=== PATIENT | female | born 1950 | race Caucasian/White ===

== ENCOUNTER → 2017-06-21 11:27 | Outpatient (CLI) | payer MEDICARE, OTHER, SELFPAY ==
[2017-06-21 14:15] LABS: Absolute Lymphocyte Count 1.18 X10^3/ul (0.83-4.51); Absolute Neutrophil Count 5.4 X10^3/uL (2.0-7.7); Basophil# 0.02 X10^3/uL; Basophil% 0.3 % (0-1); Eosinophil# 0.17 X10^3/uL; Eosinophils% 2.4 % (0-5); Hematocrit 41.8 % (37-47); Hemoglobin 13.1 g/dl (12.0-15.0); Lymphocyte # 1.18 X10^3/ul (4.0); Lymphocyte % 16.4 % (19-41); Mean Corp Hgb Conc 31.3 g/gl (32-36); Mean Corpuscular Hgb 29.6 pg (27.0-32.0); Mean Corpuscular Volume 94.6 fL (81-99); Mean Platelet Vol. 11.4 fl (6.2-12.0); Monocyte# 0.41 X10^3/uL; Monocyte% 5.7 % (0-10); Neutrophil # 5.41 X10^3/uL (2.7-7.7); Neutrophil % 75.1 % (47-70); Platelet Count 233 K/mm3 (150-450); RBC Distribution Width CV 16.9 % (11.6-14.6); Red Blood Count 4.42 M/mm3 (4.2-5.4); White Blood Count 7.2 K/mm3 (4.4-11.0)
[2017-06-21 14:18] LABS: POSITIVE COUNT NO; POSITIVE DIFFERENTIAL NO; POSITIVE MORPHOLOGY NO
[2017-06-21 14:30] LABS: ALB/GLOB Ratio 0.8 RATIO (0.9-2.4); AST(SGOT) 15 U/L (15-37); Alanine Aminotransfer ALT/SGPT 20 U/L (13-56); Albumin, Serum 3.5 g/dL (3.2-5.0); Alkaline Phosphatase 30 U/L (45-117); Anion Gap 11 (5-15); BUN 32 mg/dL (7-18); BUN/Creat Ratio 31.7 RATIO (10-20); Bilirubin, Direct 0.09 mg/dL (0.00-0.30); Calcium,Total 8.8 mg/dL (8.5-10.1); Chloride 105 mmol/L (98-107); Cholesterol 104 mg/dL (200); Creatinine, Serum 1.01 mg/dL (0.55-1.02); EST Glomerular Filtration Rate 58 mL/min (>60); Est Glom Filt Rate - Afr Amer 70 mL/min (>60); Globulin 4.2 g/dL (2.2-4.2); Glucose 104 mg/dL (74-106); High Density Lipoprotein 43 mg/dL; Potassium 4.1 mmol/L (3.5-5.1); Protein, Total 7.7 g/dL (6.4-8.2); Sodium Level 141 mmol/L (136-145); Triglycerides 132 mg/dL; Very Low Density Lipoprotein 26 mg/dL (5-40)
== END ==
PROVIDERS: Internal Medicine Cardiovascular Disease; Family Provider Family Medicine; PCP Family Medicine; Visit Provider Internal Medicine Rheumatology
DX: E78.5 Hyperlipidemia, unspecified (principal); M06.4 Inflammatory polyarthropathy; M17.0 Bilateral primary osteoarthritis of knee; M21.40 Flat foot [pes planus] (acquired), unspecified foot; M47.892 Other spondylosis, cervical region; M47.897 Other spondylosis, lumbosacral region; Z79.899 Other long term (current) drug therapy
CPT/HCPCS: 36415; 80053; 80061; 82248; 85025

== ENCOUNTER → 2017-09-27 15:13 | Outpatient (CLI) | payer MEDICARE, OTHER, SELFPAY ==
[2017-09-27 17:28] LABS: Absolute Lymphocyte Count 1.31 X10^3/ul (0.83-4.51); Absolute Neutrophil Count 5.3 X10^3/uL (2.0-7.7); Basophil# 0.03 X10^3/uL; Basophil% 0.4 % (0-1); Eosinophil# 0.26 X10^3/uL; Eosinophils% 3.5 % (0-5); Hematocrit 39.4 % (37-47); Hemoglobin 12.4 g/dl (12.0-15.0); Lymphocyte # 1.31 X10^3/ul (4.0); Lymphocyte % 17.6 % (19-41); Mean Corp Hgb Conc 31.5 g/gl (32-36); Mean Corpuscular Volume 98.5 fL (81-99); Mean Platelet Vol. 10.8 fl (6.2-12.0); Monocyte# 0.54 X10^3/uL; Monocyte% 7.2 % (0-10); Neutrophil # 5.26 X10^3/uL (2.7-7.7); Neutrophil % 70.6 % (47-70); Platelet Count 260 K/mm3 (150-450); RBC Distribution Width CV 15.6 % (11.6-14.6); RBC Distribution Width SD 53.6 fl (35.1-43.9); White Blood Count 7.5 K/mm3 (4.4-11.0)
[2017-09-27 17:29] LABS: POSITIVE COUNT NO; POSITIVE DIFFERENTIAL NO; POSITIVE MORPHOLOGY NO
[2017-09-27 17:57] LABS: ALB/GLOB Ratio 0.8 RATIO (0.9-2.4); AST(SGOT) 13 U/L (15-37); Alanine Aminotransfer ALT/SGPT 18 U/L (13-56); Albumin, Serum 3.5 g/dL (3.2-5.0); Alkaline Phosphatase 33 U/L (45-117); Anion Gap 8 (5-15); BUN 31 mg/dL (7-18); BUN/Creat Ratio 27.9 RATIO (10-20); Calcium,Total 8.8 mg/dL (8.5-10.1); Chloride 102 mmol/L (98-107); Creatinine, Serum 1.11 mg/dL (0.55-1.02); EST Glomerular Filtration Rate 52 mL/min (>60); Est Glom Filt Rate - Afr Amer 63 mL/min (>60); Globulin 4.3 g/dL (2.2-4.2); Glucose 102 mg/dL (74-106); Potassium 5.1 mmol/L (3.5-5.1); Protein, Total 7.8 g/dL (6.4-8.2); Sodium Level 138 mmol/L (136-145)
== END ==
PROVIDERS: Family Provider Family Medicine; PCP Family Medicine; Visit Provider Internal Medicine Rheumatology
DX: M06.4 Inflammatory polyarthropathy (principal); M17.0 Bilateral primary osteoarthritis of knee; M21.40 Flat foot [pes planus] (acquired), unspecified foot; M47.892 Other spondylosis, cervical region; M47.897 Other spondylosis, lumbosacral region; I10 Essential (primary) hypertension; E78.5 Hyperlipidemia, unspecified; E11.42 Type 2 diabetes mellitus with diabetic polyneuropathy; L71.9 Rosacea, unspecified; D51.0 Vitamin B12 deficiency anemia due to intrinsic factor deficiency; Z79.899 Other long term (current) drug therapy
CPT/HCPCS: 36415; 80053; 85025

== ENCOUNTER → 2017-10-22 12:55 | Outpatient (CLI) | payer MEDICARE, OTHER, SELFPAY ==
--- NOTE | 2017-10-22 12:57 | ECHOD_ITS ---
Reason For Study: PVCs Procedure This was a 2D Doppler, Color Flow transthoracic echocardiogram. The exam was of fair technical quality due to body habitus. Exam performed in department. Left Ventricle Normal LV size. Left ventricular systolic function is normal. The estimated ejection fraction is 65 %. No regional wall motion abnormalities noted. Right Ventricle Normal RV size. Normal systolic function. Atria The left atrium is mildly enlarged. Normal right atrium. No doppler evidence for ASD. Mitral Valve There is mild mitral annular calcification. Mild diffuse mitral valve thickening. Trivial mitral valve insufficiency. Tricuspid Valve Normal tricuspid valve. Trivial tricuspid valve insufficiency. Right ventricular systolic pressure estimated to be 30 mmHg. Aortic Valve Trisinus/trileaflet aortic valve. Mild focal aortic valve calcification. Pulmonic Valve The pulmonic valve is not well visualized. Great Vessels Normal sized aortic root. Pericardium/Pleural No pericardial effusion. MMode/2D Measurements & Calculations LVIDd: 4.1 cm IVSd: 0.98 cm Ao root diam: 3.2 cm LVIDs: 2.9 cm LVPWd: 0.95 cm RVDd: 3.1 cm FS: 27.5 % LAV(MOD-bp): 56.5 ml LA A4 area: 21.5 cm2 RA A4 area: 15.3 cm2 LAV(MOD-bp) Indexed: 26.7 ml/m2 LAV(MOD-sp2): 45.1 ml LAV(MOD-sp4): 61.6 ml Doppler Measurements & Calculations MV E max omi: 66.9 cm/sec Lat Peak E' Omi: 6.5 cm/sec Med Peak E' Omi: 5.5 cm/sec MV A max omi: 105.3 cm/sec E/E' lat: 10.4 E/E' med: 12.2 MV E/A: 0.64 Ao V2 max: 129.7 cm/sec LV V1 max: 90.0 cm/sec PA V2 max: 73.0 cm/sec Ao max P.7 mmHg LV V1 max P.2 mmHg TR max omi: 257.4 cm/sec TR max P.5 mmHg Interpretation Summary Left ventricular systolic function is normal. The estimated ejection fraction is 65 %. The left atrium is mildly enlarged. There is mild mitral annular calcification. Mild diffuse mitral valve thickening. Trivial mitral valve insufficiency. Trivial tricuspid valve insufficiency. Mild focal aortic valve calcification. Right ventricular systolic pressure estimated to be 30 mmHg. Diastolic function: considered indeterminate. Ordering Physician: Hussein Shi/Lawrence Medina Referring Physician: LAWRENCE SAVAGE Performed By: Madison Enriquez, RDCS, RVT
== END ==
PROVIDERS: Family Provider Family Medicine; PCP Family Medicine; Visit Provider Internal Medicine Cardiovascular Disease
DX: I49.3 Ventricular premature depolarization (principal); I10 Essential (primary) hypertension; E78.5 Hyperlipidemia, unspecified
CPT/HCPCS: 93225; 93226; 93306

== ENCOUNTER → 2017-11-29 14:53 | Outpatient (CLI) | payer MEDICARE, OTHER, SELFPAY ==
[2017-11-29 15:49] LABS: Absolute Lymphocyte Count 1.69 X10^3/ul (0.83-4.51); Absolute Neutrophil Count 4.4 X10^3/uL (2.0-7.7); Basophil# 0.02 X10^3/uL; Basophil% 0.3 % (0-1); Eosinophil# 0.12 X10^3/uL; Eosinophils% 1.8 % (0-5); Hematocrit 39.7 % (37-47); Lymphocyte # 1.69 X10^3/ul (4.0); Lymphocyte % 25.8 % (19-41); Mean Corp Hgb Conc 30.2 g/gl (32-36); Mean Corpuscular Hgb 29.9 pg (27.0-32.0); Mean Platelet Vol. 10.5 fl (6.2-12.0); Monocyte# 0.29 X10^3/uL; Monocyte% 4.4 % (0-10); Neutrophil # 4.38 X10^3/uL (2.7-7.7); Neutrophil % 67.1 % (47-70); Platelet Count 273 K/mm3 (150-450); RBC Distribution Width CV 14.7 % (11.6-14.6); Red Blood Count 4.01 M/mm3 (4.2-5.4); White Blood Count 6.5 K/mm3 (4.4-11.0)
[2017-11-29 15:52] LABS: POSITIVE COUNT NO; POSITIVE DIFFERENTIAL NO; POSITIVE MORPHOLOGY NO
[2017-11-29 16:05] LABS: ALB/GLOB Ratio 0.8 RATIO (0.9-2.4); AST(SGOT) 15 U/L (15-37); Alanine Aminotransfer ALT/SGPT 26 U/L (13-56); Albumin, Serum 3.4 g/dL (3.2-5.0); Alkaline Phosphatase 30 U/L (45-117); Anion Gap 8 (5-15); BUN 23 mg/dL (7-18); BUN/Creat Ratio 25.6 RATIO (10-20); Calcium,Total 8.9 mg/dL (8.5-10.1); Chloride 106 mmol/L (98-107); EST Glomerular Filtration Rate 66 mL/min (>60); Est Glom Filt Rate - Afr Amer 80 mL/min (>60); Globulin 4.2 g/dL (2.2-4.2); Glucose 133 mg/dL (74-106); Potassium 4.5 mmol/L (3.5-5.1); Protein, Total 7.6 g/dL (6.4-8.2); Sodium Level 143 mmol/L (136-145)
== END ==
PROVIDERS: Family Provider Family Medicine; PCP Family Medicine; Visit Provider Internal Medicine Rheumatology
DX: M06.4 Inflammatory polyarthropathy (principal); Z79.899 Other long term (current) drug therapy; M17.0 Bilateral primary osteoarthritis of knee; M21.40 Flat foot [pes planus] (acquired), unspecified foot; M47.892 Other spondylosis, cervical region; M47.897 Other spondylosis, lumbosacral region; I10 Essential (primary) hypertension; E78.5 Hyperlipidemia, unspecified; E11.42 Type 2 diabetes mellitus with diabetic polyneuropathy; L71.9 Rosacea, unspecified; D51.0 Vitamin B12 deficiency anemia due to intrinsic factor deficiency
CPT/HCPCS: 36415; 80053; 85025

== ENCOUNTER → 2017-12-23 12:13 | Outpatient (CLI) | payer MEDICARE, OTHER, SELFPAY ==
[2017-12-23 14:07] LABS: Absolute Lymphocyte Count 0.81 X10^3/ul (0.83-4.51); Absolute Neutrophil Count 4.8 X10^3/uL (2.0-7.7); Basophil# 0.03 X10^3/uL; Basophil% 0.5 % (0-1); Eosinophil# 0.06 X10^3/uL; Eosinophils% 0.9 % (0-5); Hematocrit 37.3 % (37-47); Hemoglobin 11.6 g/dl (12.0-15.0); Lymphocyte # 0.81 X10^3/ul (4.0); Lymphocyte % 12.5 % (19-41); Mean Corp Hgb Conc 31.1 g/gl (32-36); Mean Corpuscular Volume 96.4 fL (81-99); Mean Platelet Vol. 10.8 fl (6.2-12.0); Monocyte# 0.75 X10^3/uL; Monocyte% 11.6 % (0-10); Neutrophil # 4.83 X10^3/uL (2.7-7.7); Neutrophil % 74.3 % (47-70); Platelet Count 261 K/mm3 (150-450); RBC Distribution Width SD 52.8 fl (35.1-43.9); Red Blood Count 3.87 M/mm3 (4.2-5.4); White Blood Count 6.5 K/mm3 (4.4-11.0)
[2017-12-23 14:10] LABS: POSITIVE COUNT NO; POSITIVE DIFFERENTIAL NO; POSITIVE MORPHOLOGY NO
[2017-12-23 14:24] LABS: ALB/GLOB Ratio 0.8 RATIO (0.9-2.4); AST(SGOT) 120 U/L (15-37); Alanine Aminotransfer ALT/SGPT 124 U/L (13-56); Albumin, Serum 3.1 g/dL (3.2-5.0); Alkaline Phosphatase 34 U/L (45-117); Anion Gap 11 (5-15); BUN 27 mg/dL (7-18); BUN/Creat Ratio 22.3 RATIO (10-20); Bilirubin, Direct 0.98 mg/dL (0.00-0.30); Calcium,Total 8.6 mg/dL (8.5-10.1); Chloride 107 mmol/L (98-107); Cholesterol 166 mg/dL (200); Creatinine, Serum 1.21 mg/dL (0.55-1.02); EST Glomerular Filtration Rate 47 mL/min (>60); Est Glom Filt Rate - Afr Amer 57 mL/min (>60); Glucose 76 mg/dL (74-106); High Density Lipoprotein 31 mg/dL; Lipase 255 U/L (73-393); Potassium 3.7 mmol/L (3.5-5.1); Protein, Total 7.1 g/dL (6.4-8.2); Sodium Level 142 mmol/L (136-145); Triglycerides 198 mg/dL; Very Low Density Lipoprotein 40 mg/dL (5-40)
== END ==
PROVIDERS: Internal Medicine Cardiovascular Disease; Family Provider Family Medicine; PCP Family Medicine; Visit Provider Family Medicine
DX: E78.5 Hyperlipidemia, unspecified (principal); R19.7 Diarrhea, unspecified; R11.2 Nausea with vomiting, unspecified; Z79.899 Other long term (current) drug therapy
CPT/HCPCS: 36415; 80053; 80061; 82248; 83690; 85025

== ENCOUNTER → 2017-12-24 09:04 | Outpatient (CLI) | payer MEDICARE, OTHER, SELFPAY | PROVIDERS: Family Provider Family Medicine; PCP Family Medicine; Visit Provider Family Medicine | DX: R11.2 Nausea with vomiting, unspecified (principal) | CPT/HCPCS: 76700; 87493; 87506 ==

== ENCOUNTER 2017-12-24 17:00 | Inpatient (IN) | payer MEDICARE, OTHER, SELFPAY ==
[2017-12-24 17:13] VITALS: BMI 30.8
[2017-12-24 17:28] VITALS: BP 145/76; PULSE 99; RESP 16; TEMP 36.9; O2SAT 96
--- NOTE | 2017-12-24 18:08 | PCM.CONS.GEN ---
Reason for Consult Date of Consultation: 12/24/17 Reason for Consultation: Consult requested by Dr. Jacobo for medical management. History of Present Illness: The patient is a 67 year old F presents with a two-week history of nausea and diarrhea. Patient felt that she had food poisoning.*Primary care doctor and had an ultrasound performed as outpatient that showed a dilated common bile duct of 13 mm. Patient was referred over to Dr. Haris Jacobo who 1 patient admitted to do a CT. We are asked to consult patient for medical management for the patient's numerous medical issues. Patient denies ever having had abdominal pain like this. Patient describes abdominal pain is more generalized and not localized to the right upper quadrant. Nor she been sick for this extended period of time. Patient states she has never had any surgeries before. [] Past Medical History Past Medical History (Chronic Problems): Chronic Problems (Last Reviewed 12/24/17 @ 15:53 by Nery Soto) Abnormal electrocardiogram [ECG] [EKG] (Chronic) Encounter for long-term current use of high risk medication (Chronic) Hypertension (Chronic) Hyperlipidemia (Chronic) Ventricular premature depolarization (Chronic) Medical History: Medical History (Last Reviewed 12/24/17 @ 18:10 by Karlos Sierra DO) Rheumatoid arthritis (Acute) M06.9 Acute kidney injury (Acute) N17.9 Common bile duct obstruction (Acute) K83.1 Diarrhea (Acute) R19.7 Abnormal electrocardiogram [ECG] [EKG] (Chronic) R94.31 Encounter for long-term current use of high risk medication (Chronic) Z79.899 Type 2 diabetes mellitus (Acute) E11.9 Hypertension (Chronic) I10 Hyperlipidemia (Chronic) E78.5 Ventricular premature depolarization (Chronic) I49.3 IBS (irritable bowel syndrome) K58.9 Pernicious anemia D51.0 Diabetic neuropathy E11.40 Diabetic retinopathy E11.319 Rheumatoid arthritis M06.9 Allergies latex Allergy (Verified 12/24/17 17:16) Swelling gadalidium Allergy (Severe, Uncoded 12/24/17 17:28) Swelling stress test dye Home Medications: Ambulatory Orders Medication Instructions Recorded alogliptin 25 mg-pioglitazone 45 1 tab PO QDAY 07/15/17 mg tablet amlodipine 5 mg tablet 5 mg PO QDAY tab 07/15/17 aspirin 81 mg tablet,delayed 81 mg PO QDAY tab 07/15/17 release cetirizine 10 mg tablet 10 mg PO QDAY tab 07/15/17 diphenoxylate-atropine 2.5 1 tab PO QHS PRN 07/15/17 mg-0.025 mg tablet eluxadoline 75 mg tablet 75 mg PO QDAY tab 07/15/17 glucosamine HCl 1,500 mg tablet 3,000 mg PO QDAY tab 07/15/17 insulin glargine (U-300) 300 10 unit SC .COMPLEX 07/15/17 unit/mL (1.5 mL) subcutaneous pen metformin 1,000 mg tablet 1,000 mg PO BID 07/15/17 metoprolol tartrate 50 mg tablet 50 mg PO BID 07/15/17 rosuvastatin 5 mg tablet 5 mg PO QDAY 07/15/17 duloxetine 60 mg capsule,delayed 60 mg PO QDAY 09/11/17 release fluticasone 50 mcg/actuation nasal 2 spray INTRANASAL QDAY PRN 09/11/17 spray,suspension methotrexate sodium 2.5 mg tablet 17.5 mg PO QWEEK tab 09/11/17 benazepril 20 mg tablet 10 mg PO QDAY tab 12/24/17 calcium carbonate 600 mg calcium 1,200 mg PO QDAY tab 12/24/17 (1,500 mg) tablet dapagliflozin 10 mg tablet 10 mg PO QDAY 12/24/17 folic acid 1 mg tablet 2 mg PO QDAY tab 12/24/17 hydrocodone 5 mg-acetaminophen 325 1 tab PO Q6H PRN 12/24/17 mg tablet multivitamin tablet 2 tab PO QDAY tab 12/24/17 vitamin B complex tablet 2 tab PO QDAY tab 12/24/17 Surgical History: no surgical history Psychiatric History: No pertinent psych hx Smoking Status: Former smoker Tobacco Use: Non-smoker Alcohol: None Drugs: None - *Family History Paternal Family History: Family History (Last Reviewed 12/24/17 @ 18:10 by Karlos Sierra DO) Father CAD (coronary artery disease) Review of Systems Constitutional: Reports: Anorexia. Denies: Chills, Fever, Night Sweats Eyes: Denies: Blurred vision, Double vision HEENT: Denies: Head Aches, Sinus Congestion, Sinus Drainage Cardiovascular: Denies: Chest Pain, Palpitations Respiratory: Denies: Cough, Shortness of breath at rest, Sputum production Gastrointestinal: Reports: Abdominal Pain, Diarrhea, Nausea Genitourinary: Denies: Dysuria, Frequency Musculoskeletal: Reports: Joint Tenderness. Denies: Joint Pain Skin: Denies: Dryness, Jaundice, Lesions, Rash Neurological: Denies: Numbness, Tingling, Focal weakness Psychiatric: Denies: Anxiety, Depression Hematologic/ Lymphatic: Denies: Easy Bruising, Easy Bleeding, Hx of blood clot Comment: All review of systems are negative except as mentioned in the history of present illness and the other review of systems. - Physical Exam General: Alert, Cooperative, No apparent distress HEENT: Atraumatic, Normocephalic, - - No icterus Oral: Moist Mucosa, No Gingival or Mucosal Lesions/ Ulcerations Neck: No Nodes, Thyroid Normal Size and Texture Lungs: Clear to auscultation, Normal air movement, No rhonchi, No wheeze Cardiovascular: Regular rate, Regular Rhythm, Normal S1, Normal S2, No murmurs Abdomen: Bowel Sounds Present, Soft, Non-Distended, Tender - Positive Leonard sign Extremities: No clubbing, No cyanosis Skin: No rashes, No breakdown Musculoskeletal: No Tenderness to Palpation of Joints or Extremities, No Muscle Wasting Neurological: Sensory exam intact to light touch and pain, - - No clonus Psych/Mental Status: Normal Affect, Appropriate Vital Signs Temp Pulse Resp BP Pulse Ox 36.9 C 99 16 145/76 H 96 12/24/17 17:28 12/24/17 17:28 12/24/17 17:28 12/24/17 17:28 12/24/17 17:28 Oxygen Delivery Method Room Air Weight: 97.522 kg Body Mass Index (BMI) 30.8 Assessment/Plan All Active Problems (Last Reviewed 12/24/17 @ 15:53 by Nery Soto) Rheumatoid arthritis (Acute) Acute kidney injury (Acute) Dehydration (Acute) Common bile duct obstruction (Acute) Diarrhea (Acute) Type 2 diabetes mellitus (Acute) 1. Dilated common bile duct No definitive stone was noted on ultrasound, but may be sludge Plan is to get a CAT scan to further evaluate to see if there is a stone and based on the results of the CAT scan patient will either undergo a laparoscopic cholecystectomy or an ERCP hopefully on the Patient has a good performance status prior to this and able to participate in greater than 4 METs of activity 2. Diabetes mellitus type 2 Blood sugar checks Moderate dose of sliding scale Hold patient's other diabetic medications for now the patient is going to be n.p.o. in the morning 3. Hypertension Agree with continuing her metoprolol and lisinopril 4. Rheumatoid arthritis I agree with holding the methotrexate. Resume once okayed with surgery Follow-up with rheumatology as outpatient 5. DVT prophylaxis with SCDs Thank you for the consult, the hospitalist service will continue to follow along during the patient's hospitalization. Code Visit Inpatient E&M: 94110 Init Hosp L3
[2017-12-24] MEDS: Lactated Ringers 1,000 ML 300 ML IV ×2 (18:10→21:39)
[2017-12-24 18:25] LABS: Bedside Glucose 90 mg/dL (70-110)
[2017-12-24 20:27] VITALS: BP 150/74; PULSE 102; RESP 18; TEMP 37.1; O2SAT 93
[2017-12-24 22:27] VITALS: PULSE 78
[2017-12-24] MEDS: Atorvastatin Calcium 10 MG Tablet PO (22:27)
[2017-12-24] MEDS: Metoprolol Tartrate 50 MG Tablet PO (22:27)
[2017-12-25] VITALS (16 sets, daily range): BP systolic 73–158; BP diastolic 36–126; PULSE 80–113; RESP 16–20; TEMP 36.6–38.2; O2SAT 92–99; BMI 30.8
[2017-12-25] MEDS: Lactated Ringers 1,000 ML 100 ML IV (00:48)
--- NOTE | 2017-12-25 05:51 | PCM.PN.SRG ---
Subjective: Pt started oral contrast last night, several episodes of diarrhea No real abdominal pain. Less nausea - Physical Exam Abdomen: Bowel Sounds Present, Soft, Distended Vital Signs Temp Pulse Resp BP Pulse Ox 98.2 F 80 18 158/65 H 93 12/25/17 03:46 12/25/17 03:46 12/25/17 03:46 12/25/17 03:46 12/25/17 03:46 Oxygen Delivery Method Room Air Weight: 215 lb Body Mass Index (BMI) 30.8 Intake and Output for Last 24 Hours 12/23/17 12/24/17 12/25/17 23:59 23:59 23:59 Intake Total 2032 Balance 2032 POC Glucose 12/24/17 18:15 POC Glucose 90 Medical Necessity - Tobacco Use Smoking Status: Former smoker Tobacco Use: Non-smoker Assessment/Plan All Active Problems (Last Reviewed 12/24/17 @ 18:10 by Karlos Sierra, DO) Rheumatoid arthritis (Acute) Acute kidney injury (Acute) Dehydration (Acute) Common bile duct obstruction (Acute) Diarrhea (Acute) Type 2 diabetes mellitus (Acute) Labs pending Appreciate Dr Sierra's assistance CT this a.m. Possible ERCP or Lap GB later today pending findings The dominant symptom of diarrhea with other findings suggest CBD obstruction seem out of proportion. Stool check from 12/23 was negative for pathogens and c.diff.
[2017-12-25 06:03] LABS: Absolute Neutrophil Count 3.9 X10^3/uL (2.0-7.7); Basophil# 0.04 X10^3/uL; Basophil% 0.7 % (0-1); Eosinophil# 0.03 X10^3/uL; Eosinophils% 0.5 % (0-5); Hematocrit 34.4 % (37-47); Lymphocyte % 15.8 % (19-41); Mean Corpuscular Hgb 30.6 pg (27.0-32.0); Mean Corpuscular Volume 95.6 fL (81-99); Mean Platelet Vol. 10.6 fl (6.2-12.0); Monocyte% 14.1 % (0-10); Neutrophil % 68.7 % (47-70); Platelet Count 212 K/mm3 (150-450); RBC Distribution Width CV 14.9 % (11.6-14.6); White Blood Count 5.7 K/mm3 (4.4-11.0)
[2017-12-25 06:06] LABS: POSITIVE COUNT NO; POSITIVE DIFFERENTIAL NO; POSITIVE MORPHOLOGY NO
[2017-12-25 06:18] LABS: BUN 14 mg/dL (7-18); Creatinine, Serum 0.73 mg/dL (0.55-1.02); EST Glomerular Filtration Rate 85 mL/min (>60); Estimated Creatinine Clearance 59.03 ml/min; Glucose 60 mg/dL (74-106)
[2017-12-25 06:19] LABS: ALB/GLOB Ratio 0.7 RATIO (0.9-2.4); AST(SGOT) 250 U/L (15-37); Alanine Aminotransfer ALT/SGPT 254 U/L (13-56); Albumin, Serum 2.5 g/dL (3.2-5.0); Alkaline Phosphatase 51 U/L (45-117); Anion Gap 11 (5-15); BUN/Creat Ratio 19.2 RATIO (10-20); Calcium,Total 8.2 mg/dL (8.5-10.1); Chloride 112 mmol/L (98-107); Est Glom Filt Rate - Afr Amer 102 mL/min (>60); Globulin 3.6 g/dL (2.2-4.2); Potassium 3.4 mmol/L (3.5-5.1); Protein, Total 6.1 g/dL (6.4-8.2); Sodium Level 145 mmol/L (136-145)
[2017-12-25] MEDS: Dextrose 50%-Water 25 GM/50 ML DISP.SYRIN IV (06:57)
--- NOTE | 2017-12-25 07:07 | PCM.PN.BLA ---
Progress Note Changing IVF to 0.45Ns with 20megKCL/liter at 80cc/h
[2017-12-25 07:10] LABS: Bedside Glucose 119 mg/dL (70-110)
[2017-12-25 07:50] LABS: Bedside Glucose 58 mg/dL (70-110)
--- NOTE | 2017-12-25 09:55 | PCM.PN.SRG ---
Subjective: The patient is reporting no nausea or vomiting or abdominal pain. - Physical Exam General: Alert, Oriented x3, Cooperative HEENT: Atraumatic Lungs: Normal air movement Cardiovascular: Regular rate, Regular Rhythm Abdomen: Soft, Non Tender, Non-Distended Vital Signs Temp Pulse Resp BP Pulse Ox 98.1 F 82 16 144/69 H 98 12/25/17 08:14 12/25/17 08:14 12/25/17 08:14 12/25/17 08:14 12/25/17 08:14 Oxygen Delivery Method Room Air Weight: 215 lb Body Mass Index (BMI) 30.8 Intake and Output for Last 24 Hours 12/23/17 12/24/17 12/25/17 23:59 23:59 23:59 Intake Total 3041 / 3041 Balance 3041 / 3041 Laboratory Tests Past 24 Hrs 12/25/17 12/25/17 05:52 05:52 WBC 5.7 RBC 3.60 L Hgb 11.0 L Hct 34.4 L MCV 95.6 MCH 30.6 MCHC 32.0 RDW 14.9 H RDW Differential 50.0 H Plt Count 212 MPV 10.6 Immature Gran % (Auto) 0.200 Neut % (Auto) 68.7 Lymph % (Auto) 15.8 L [place] % (Auto) 14.1 H Eos % (Auto) 0.5 Baso % (Auto) 0.7 Absolute Neuts (auto) 3.9 Absolute Lymphs (auto) 0.90 Total Counted Not Reportable Sodium 145 Potassium 3.4 L Chloride 112 H Carbon Dioxide 22.0 Anion Gap 11 BUN 14 Creatinine 0.73 Estim Creat Clear Calc 59.03 Est GFR (MDRD) Af Amer 102 Est GFR (MDRD) Non-Af 85 BUN/Creatinine Ratio 19.2 Glucose 60 L Calcium 8.2 L Total Bilirubin 3.10 H AST 250 H ALT 254 H Alkaline Phosphatase 51 Total Protein 6.1 L Albumin 2.5 L Globulin 3.6 Albumin/Globulin Ratio 0.7 L POC Glucose 12/25/17 12/25/17 12/24/17 07:01 06:46 18:15 POC Glucose 119 H 58 L 90 Clinical Impression(s) from Imaging Studies Abdomen/Pelvis CT 12/25/17 07:00 IMPRESSION: Dilated common bile duct with intrahepatic bile duct dilatation and a prominent distention of the gallbladder. No visualized compressive pancreatic mass or radiodense CBD stone. Radiolucent CBD stone or other intrinsic lesion of the duct cannot be excluded. Suggest MRCP for further evaluation. Colonic diverticulosis, without evidence for acute diverticulitis. Focal narrowing and mural thickening of a short segment of proximal sigmoid colon may be artifact of peristalsis, however, colonic mass is not excluded. Would suggest follow-up colonoscopy. Colonic diverticulosis, without evidence for acute diverticulitis. Duodenal diverticulum without evidence for duodenal diverticulitis. Small nonobstructive left renal calculus. No demonstrated ureteral calculus or hydronephrosis. Atherosclerosis. No evidence for appendicitis. Electronically Signed: Garrett Jorge MD at 7:51 EDT , Service support , Medical Necessity - Tobacco Use Smoking Status: Former smoker Tobacco Use: Non-smoker Assessment/Plan All Active Problems (Last Reviewed 12/24/17 @ 18:10 by Karlos Sierra DO) Rheumatoid arthritis (Acute) Acute kidney injury (Acute) Dehydration (Acute) Common bile duct obstruction (Acute) Diarrhea (Acute) Type 2 diabetes mellitus (Acute) 67-year-old female with obstructive jaundice 1. The patient had a CT scan this morning which showed dilation common bile duct. No obvious gallstones. The patient also had an area of concentric thickening of the proximal sigmoid colon on CT scan. 2. The patient's LFTs have increased since yesterday. 3. I recommend ERCP. I describe ERCP in detail with the patient. I explained the possibility of ampullary mass versus CBD stone. I explained the risks of the procedure including but not limited to bleeding, infection, perforation of the bile ducts her bowels, causing pancreatitis. The patient understands all the risks and is willing to proceed. I explained that if there was a suspected mass I would stent the bile duct and she had to be sent for an EUS. I explained was able to clear the duct I would not have to leave a biliary stent. 4. The patient also has an area of thickening in the proximal colon on CT scan. The patient has never had a colonoscopy. I recommend at the same time or during ERCP that I perform a flexible sigmoidoscopy. The patient is already having diarrhea I will give her a fleets enema to prep the sigmoid colon. I explained that if I were to find a suspected mass I would take biopsies and likely leave a biliary stent to temporize the bile duct until the colon was further delineated. I explained the risks of flexible sigmoidoscopy such as bleeding and perforation of the colon. The patient understands and is willing to proceed with both procedures. I also explained that the patient would likely need a full colonoscopy following this procedure. Ulises Tee MD Pager: [facility] [address] [place] [address] [address] [place] [address] Office:
[2017-12-25] MEDS: Fleet Enema 1 ML RECTAL (12:04)
[2017-12-25 12:21] LABS: Bedside Glucose 77 mg/dL (70-110)
--- NOTE | 2017-12-25 12:38 | PCM.PN.HOSP ---
Subjective: Pain is controlled and denies nausea or vomiting Vitals/I&O's: Vital Signs Temp Pulse Resp BP Pulse Ox 98.1 F 82 16 144/69 H 98 12/25/17 08:14 12/25/17 08:14 12/25/17 08:14 12/25/17 08:14 12/25/17 08:14 Oxygen Delivery Method Room Air Weight: 215 lb Body Mass Index (BMI) 30.8 Intake and Output for Last 24 Hours 12/23/17 12/24/17 12/25/17 23:59 23:59 23:59 Intake Total 3404 / 3404 Balance 3404 / 3404 General: Alert, Oriented x3, No apparent distress HEENT: Atraumatic, EOMI, Normocephalic, - - scleral icterus Oral: Moist Mucosa Neck: Supple, No JVD Lungs: Clear to auscultation, Normal air movement, No rhonchi, No wheeze, No rales Cardiovascular: Regular rate, Regular Rhythm, Normal S1, Normal S2, No murmurs Abdomen: Soft, Non Tender, Non-Distended, No Hepato-splenomegaly Extremities: No edema Skin: No rashes, - - jaundiced Psych/Mental Status: Normal Affect, Appropriate Laboratory Results 12/24/17 18:15: POC Glucose 90 12/25/17 05:52: WBC 5.7, RBC 3.60 L, Hgb 11.0 L, Hct 34.4 L, MCV 95.6, MCH 30.6, MCHC 32.0, RDW 14.9 H, RDW Differential 50.0 H, Plt Count 212, MPV 10.6, Immature Gran % (Auto) 0.200, Neut % (Auto) 68.7, Lymph % (Auto) 15.8 L, [place] % (Auto) 14.1 H, Eos % (Auto) 0.5, Baso % (Auto) 0.7, Absolute Neuts (auto) 3.9, Absolute Lymphs (auto) 0.90, Total Counted Not Reportable 12/25/17 05:52: Sodium 145, Potassium 3.4 L, Chloride 112 H, Carbon Dioxide 22.0, Anion Gap 11, BUN 14, Creatinine 0.73, Estim Creat Clear Calc 59.03, Est GFR (MDRD) Af Amer 102, Est GFR (MDRD) Non-Af 85, BUN/Creatinine Ratio 19.2, Glucose 60 L, Calcium 8.2 L, Total Bilirubin 3.10 H, AST 250 H, ALT 254 H, Alkaline Phosphatase 51, Total Protein 6.1 L, Albumin 2.5 L, Globulin 3.6, Albumin/Globulin Ratio 0.7 L 12/25/17 06:46: POC Glucose 58 L 12/25/17 07:01: POC Glucose 119 H 12/25/17 12:02: POC Glucose 77 Current Medications Acetaminophen (Tylenol) 325 - 650 mg PO Q6H PRN PRN Reason: HAND/PAIN Hydrocodone Bitart/Acetaminophen ([place] 5mg-325mg) 1 - 2 tablet PO Q6H PRN PRN Reason: PAIN Amlodipine Besylate (Norvasc) 5 mg PO DAILY [facility] Atorvastatin Calcium (Lipitor) 10 mg PO QHS [facility] Last Admin: 12/24/17 22:27 Dose: 10 mg Dextrose (D50w Syringe) 0 gm IV X1 PRN; Protocol PRN Reason: Hypoglycemia Last Admin: 12/25/17 06:57 Dose: 12.5 gm Duloxetine HCl (Cymbalta) 60 mg PO DAILY [facility] Glucagon () 1 mg IM .X1 PRN PRN Reason: Hypoglycemia Potassium Chloride/Dextrose/Sod Cl (Kcl 20meq In D5.45ns 1000ml) 1,000 mls @ 100 mls/hr IV .Q10H [facility] Insulin Human Lispro (Humalog Kwikpen (Bkc)) 0 unit SQ TIDAC KAVEH PRN Reason: Protocol Last Admin: 12/25/17 12:03 Dose: Not Given Lisinopril (Zestril) 10 mg PO DAILY [facility] Loratadine (Claritin) 10 mg PO DAILY [facility] Metoprolol Tartrate (Lopressor (Beta Ivelisse)) 50 mg PO BID [facility] Last Admin: 12/24/17 22:27 Dose: 50 mg Sodium Chloride () 5 - 30 ml IV UD PRN PRN Reason: SALINE FLUSH Medical Necessity - Tobacco Use Smoking Status: Former smoker Tobacco Use: Non-smoker Assessment/Plan All Active Problems (Last Reviewed 12/24/17 @ 18:10 by Karlos Sierra DO) Rheumatoid arthritis (Acute) Acute kidney injury (Acute) Dehydration (Acute) Common bile duct obstruction (Acute) Diarrhea (Acute) Type 2 diabetes mellitus (Acute) 1. Biliray duct dilatation both extra and intrahepatic/Sigmoid colon thickening/Hyperbilirubinemia - Will proceed with ERCP today and sigmoidoscopy givent thickening and h/o no colonscopy - Continue with IVF, will add D5 because of her low blood sugar-asymptomatic - Disposition is dependent on what is found totday 2. Rheumatoid Arthritis - Hold methotrexate until after any planned surgery 3. HTN/HLD - She is on lisinopril, norvasc and lopressor - If she is to proceed with surgery tomorrow will hold lisinopril - C/w crestor 4. DM2 - Hold her home oral hypoglycemics -C/w SSI and monitor - BG was low this am so D5 was added to her fluids 5. Depression/neuropathy - c/w cymbalata DVT: SCDs Diet: NPO CODE: FULL Thank you for the consult, will continue to follow. Code Visit Inpatient E&M: 24602 Subs Hosp L2
--- NOTE | 2017-12-25 14:07 | NURSING ---
PT TO ENDO FOR ERCP AND COLONOSCOPY
--- NOTE | 2017-12-25 14:50 | CASEMGMT ---
RN CM attempted to complete Face to Face with patient. Patient is currently at surgery. RN CM will attempt again at a later time.
--- NOTE | 2017-12-25 18:18 | PCM.OPRPT ---
Problem List (1) Obstructive jaundice Status: Acute (2) Sigmoid thickening Status: Acute Report of Operation Date of Procedure: 12/25/17 Pre-Operative Diagnosis: 1. Mural thickening of the sigmoid colon on CT. 2. Obstructive jaundice with dilated common bile duct Post-Operative Diagnosis: 1. Normal sigmoidoscopy. 2. dilated common bile duct with sludge Surgery/Procedure Performed:: 1. Flexible sigmoidoscopy. 2. ERCP with sphincterotomy Specimen's removed: None Description of Procedure: After describing the risks of the procedure as well as the procedure in detail informed consent was obtained. Patient was brought to the operating room and general anesthesia was induced. The patient was then placed in a semi-prone position. Next a flexible sigmoidoscopy was performed. The sigmoidoscope was placed into the colon and advanced to about 50 cm. It was slowly withdrawn and the circumferential street of the colon were examined. There were no mucosal abnormalities or strictures. The patient did have sigmoid diverticulosis. The scope was retracted to the rectum and retroflexed and was normal. The scope was straightened and removed from the anus. Next, the side-viewing endoscope was placed into the mouth and down into the stomach and advanced into the duodenum. The patient had severe ulcerative duodenitis of the entire duodenum. The patient also had a periampullary diverticulum. The ampulla was located. A sphinctertome was used to cannulate the common bile duct and location was confirmed on fluoroscopy. The guidewire was placed in the common bile duct and using sphincterotome and electrocautery a sphincterotomy was performed. Hemostasis was good. Next the sphincterotome was removed leaving the guidewire in the common bile duct. There was a cordero of bile and concentrated dark sludge. A balloon was then introduced over the guidewire and the common bile duct and several sweeps were performed. The common bile duct was extremely dilated. It measured over 15 mm. A balloon cholangiogram was performed and a sweep with dye was performed and the distal common bile duct appear to be free of any obstructing stone. The balloon was removed as well as the guidewire. The side-viewing scope was then withdrawn back into the stomach and the stomach was suctioned. Next, the scope was removed. The patient was taken to PACU in stable condition. The patient tolerated the procedure well. - Admit VTE Documentation VTE Mechan Device Prophylaxis: SCD's
[2017-12-25 19:36] LABS: Bedside Glucose 95 mg/dL (70-110)
[2017-12-25] MEDS: Atorvastatin Calcium 10 MG Tablet PO (22:23)
[2017-12-25] MEDS: Metoprolol Tartrate 50 MG Tablet PO (22:23)
[2017-12-25 22:30] LABS: Bedside Glucose 115 mg/dL (70-110)
[2017-12-26] VITALS (15 sets, daily range): BP systolic 113–162; BP diastolic 52–76; PULSE 61–80; RESP 16–18; TEMP 36.2–37.3; O2SAT 92–99; BMI 30.8
[2017-12-26 05:25] LABS: Absolute Lymphocyte Count 1.14 X10^3/ul (0.83-4.51); Absolute Neutrophil Count 4.2 X10^3/uL (2.0-7.7); Basophil# 0.02 X10^3/uL; Basophil% 0.3 % (0-1); Eosinophil# 0.07 X10^3/uL; Eosinophils% 1.2 % (0-5); Hematocrit 34.3 % (37-47); Hemoglobin 10.8 g/dl (12.0-15.0); Lymphocyte # 1.14 X10^3/ul (4.0); Lymphocyte % 19.1 % (19-41); Mean Corp Hgb Conc 31.5 g/gl (32-36); Mean Corpuscular Volume 95.3 fL (81-99); Mean Platelet Vol. 10.4 fl (6.2-12.0); Monocyte# 0.55 X10^3/uL; Monocyte% 9.2 % (0-10); Neutrophil # 4.19 X10^3/uL (2.7-7.7); Platelet Count 206 K/mm3 (150-450); RBC Distribution Width CV 14.9 % (11.6-14.6); RBC Distribution Width SD 51.9 fl (35.1-43.9)
[2017-12-26 05:28] LABS: International Normalized Ratio 1.2; Prothrombin Time (Protime)PT. 15.4 SECONDS (11.7-14.9)
[2017-12-26 05:29] LABS: Partial Thromboplast Time 28.7 Seconds (24.1-36.2)
[2017-12-26 05:35] LABS: POSITIVE COUNT NO; POSITIVE DIFFERENTIAL NO; POSITIVE MORPHOLOGY NO
[2017-12-26 05:36] LABS: Neutrophil % 70.2 % (47-70)
[2017-12-26 05:44] LABS: ALB/GLOB Ratio 0.7 RATIO (0.9-2.4); AST(SGOT) 89 U/L (15-37); Alanine Aminotransfer ALT/SGPT 160 U/L (13-56); Albumin, Serum 2.4 g/dL (3.2-5.0); Alkaline Phosphatase 43 U/L (45-117); Anion Gap 11 (5-15); BUN 9 mg/dL (7-18); BUN/Creat Ratio 12.8 RATIO (10-20); Calcium,Total 7.8 mg/dL (8.5-10.1); Chloride 111 mmol/L (98-107); EST Glomerular Filtration Rate 88 mL/min (>60); Est Glom Filt Rate - Afr Amer 107 mL/min (>60); Estimated Creatinine Clearance 59.03 ml/min; Globulin 3.4 g/dL (2.2-4.2); Glucose 140 mg/dL (74-106); Potassium 3.3 mmol/L (3.5-5.1); Protein, Total 5.8 g/dL (6.4-8.2); Sodium Level 145 mmol/L (136-145)
--- NOTE | 2017-12-26 05:45 | PCM.PN.SRG ---
Patient Problems: Active and Suspected Problems (Last Reviewed 12/24/17 @ 18:10 by Karlos Sierra DO) Obstructive jaundice (Acute) Sigmoid thickening (Acute) Subjective: ERCP observed Duodenitis noted Pt c/o large liquid green diarrhea last night No abdominal pain - Physical Exam Abdomen: Soft, Non Tender Vital Signs Temp Pulse Resp BP Pulse Ox 97.9 F 77 16 161/69 H 94 12/26/17 03:11 12/26/17 03:11 12/26/17 03:11 12/26/17 03:11 12/26/17 03:11 Oxygen Delivery Method Room Air Weight: 215 lb Body Mass Index (BMI) 30.8 Intake and Output for Last 24 Hours 12/24/17 12/25/17 12/26/17 23:59 23:59 23:59 Intake Total 4354 / 4354 450 / 450 Balance 4354 / 4354 450 / 450 Laboratory Tests Past 24 Hrs 12/25/17 12/25/17 12/26/17 05:52 05:52 05:10 WBC 5.7 RBC 3.60 L Hgb 11.0 L Hct 34.4 L MCV 95.6 MCH 30.6 MCHC 32.0 RDW 14.9 H RDW Differential 50.0 H Plt Count 212 MPV 10.6 Immature Gran % (Auto) 0.200 Neut % (Auto) 68.7 Lymph % (Auto) 15.8 L [place] % (Auto) 14.1 H Eos % (Auto) 0.5 Baso % (Auto) 0.7 Absolute Neuts (auto) 3.9 Absolute Lymphs (auto) 0.90 Total Counted Not Reportable PT INR APTT Sodium 145 145 Potassium 3.4 L 3.3 L Chloride 112 H 111 H Carbon Dioxide 22.0 23.0 Anion Gap 11 11 BUN 14 9 Creatinine 0.73 0.70 Estim Creat Clear Calc 59.03 59.03 Est GFR (MDRD) Af Amer 102 107 Est GFR (MDRD) Non-Af 85 88 BUN/Creatinine Ratio 19.2 12.8 Glucose 60 L 140 H Hemoglobin A1c Calcium 8.2 L 7.8 L Total Bilirubin 3.10 H 1.00 AST 250 H 89 H ALT 254 H 160 H Alkaline Phosphatase 51 43 L Total Protein 6.1 L 5.8 L Albumin 2.5 L 2.4 L Globulin 3.6 3.4 Albumin/Globulin Ratio 0.7 L 0.7 L 12/26/17 12/26/17 12/26/17 05:10 05:10 05:10 WBC 6.0 RBC 3.60 L Hgb 10.8 L Hct 34.3 L MCV 95.3 MCH 30.0 MCHC 31.5 L RDW 14.9 H RDW Differential 51.9 H Plt Count 206 MPV 10.4 Immature Gran % (Auto) 0.000 Neut % (Auto) 70.2 H Lymph % (Auto) 19.1 [place] % (Auto) 9.2 Eos % (Auto) 1.2 Baso % (Auto) 0.3 Absolute Neuts (auto) 4.2 Absolute Lymphs (auto) 1.14 Total Counted Not Reportable PT 15.4 H INR 1.2 APTT 28.7 Sodium Potassium Chloride Carbon Dioxide Anion Gap BUN Creatinine Estim Creat Clear Calc Est GFR (MDRD) Af Amer Est GFR (MDRD) Non-Af BUN/Creatinine Ratio Glucose Hemoglobin A1c Pending Calcium Total Bilirubin AST ALT Alkaline Phosphatase Total Protein Albumin Globulin Albumin/Globulin Ratio POC Glucose 12/25/17 12/25/17 12/25/17 22:21 19:32 12:02 POC Glucose 115 H 95 77 12/25/17 12/25/17 07:01 06:46 POC Glucose 119 H 58 L Medical Necessity - Tobacco Use Smoking Status: Former smoker Tobacco Use: Non-smoker Assessment/Plan All Active Problems (Last Reviewed 12/24/17 @ 18:10 by Karlos Sierra DO) Obstructive jaundice (Acute) Sigmoid thickening (Acute) Rheumatoid arthritis (Acute) Acute kidney injury (Acute) Dehydration (Acute) Common bile duct obstruction (Acute) Diarrhea (Acute) Type 2 diabetes mellitus (Acute) Although bile was noted in duodenum I wonder whether her obstruction of alkaline bile has caused an acid induced duodenitis Will plan on home going on omeprazole and cholestyramine. Flex sig negative. Plan future outpt screening colonoscopy Lap Tori with IOC today Pt aware and concurs Appreciate Dr Tee's assistance Labs: hypokalemia. Oral dose ordered
[2017-12-26 06:45] LABS: Bedside Glucose 153 mg/dL (70-110)
[2017-12-26] MEDS: Insulin Lispro 100 UNIT/ML INSULN.PEN SQ ×2 (07:01→18:04)
--- NOTE | 2017-12-26 07:24 | PCM.DC.GB ---
Discharge Diet: Light diet - advance as tolerated Discharge Activity: Return to Normal Activity, May Not Drive - for 2-3 days or while taking narcotic pain medicataions., - - Do not drive, work heavy equipment or sign legal documents for 24 hours. May shower in (days): 1 - with the bandage in place. Additional Activity Instructions:: Pain medication may cause nausea. You should typically eat light foods as you take your pain medications. Pain medication may also cause constipation. If this is a problem for you, please discuss with your doctor. Call your doctor if your incision/area has: Continuous Slow Oozing, Sudden Increased Bleeding, Increased Pain/ Swelling, Increased Redness, Foul Smelling Discharge, Fever of 101 or Higher Call your doctor if you observe: Fever of 101 or Higher Suture Line Care: Avoid Pulling/Pushing, Avoid Pinching/Bending Additional Dressing/Incision Instructions:: Leave operative bandaids on for 2 days. When you remove dressing, leave Steri-Strips on until your follow-up appointment, or until the Steri-Strips fall off on their own. Allergies/Adverse Reactions: Allergies latex Allergy (Verified 12/24/17 17:16) Swelling gadalidium Allergy (Severe, Uncoded 12/24/17 22:09) windpipe swelled shut stress test dye Medications to take at Discharge amlodipine 5 mg tablet 5 mg PO QDAY tab 07/15/17 aspirin 81 mg tablet,delayed release 81 mg PO QDAY tab 07/15/17 cetirizine 10 mg tablet 10 mg PO QDAY tab 07/15/17 insulin glargine (U-300) 300 unit/mL (1.5 mL) subcutaneous pen 60 unit SC DAILY 07/15/17 metformin 1,000 mg tablet 1,000 mg PO BID 07/15/17 metoprolol tartrate 50 mg tablet 50 mg PO BID 07/15/17 duloxetine 60 mg capsule,delayed release 60 mg PO QDAY 09/11/17 fluticasone 50 mcg/actuation nasal spray,suspension 2 spray INTRANASAL QDAY PRN 09/11/17 methotrexate sodium 2.5 mg tablet 25 mg PO MO tab 09/11/17 Alogliptin Jose Luis/Pioglitazone [Oseni 25-45 mg Tablet] 1 each PO DAILY 12/24/17 Calcium Carbonate [Calcium] 600 mg PO BID 12/24/17 Cyanocobalamin (Vitamin B-12) [B-12] 5,000 mcg PO BID 12/24/17 benazepril 20 mg tablet 10 mg PO QDAY tab 12/24/17 dapagliflozin 10 mg tablet 10 mg PO QDAY 12/24/17 folic acid 1 mg tablet 1 mg PO BID tab 12/24/17 hydrocodone 5 mg-acetaminophen 325 mg tablet 1 tab PO Q6H PRN 12/24/17 multivitamin tablet 1 tab PO BID tab 12/24/17 rosuvastatin 5 mg tablet 5 mg PO .COMPLEX 12/25/17 Cholestyramine/Aspartame [Cholestyramine Light Packet] 4 gm PO TID #42 powd.pack 12/26/17 Hydrocodone/Acetaminophen [[place] 5-325 Tablet] 1 each PO Q6H PRN PRN 3 Days #10 tablet 12/26/17 Omeprazole 40 mg PO DAILY #30 capsule. 12/26/17 The following prescriptions were given: Hydrocodone/Acetaminophen [[place] 5-325 Tablet] 1 each PO Q6H PRN PRN 3 Days #10 tablet PRN Reason: Pain Omeprazole 40 mg PO DAILY #30 capsule. Cholestyramine/Aspartame [Cholestyramine Light Packet] 4 gm PO TID #42 powd.pack Primary Care Physician: Lawrence Fisher MD [Primary Care Provider] - Test Results: Test results from this visit will be discussed in further detail at your follow-up appointment, if applicable. Please Follow Up With: Haris Jacobo MD - [phone] When: 10 days
[2017-12-26 08:09] LABS: Hemoglobin A1c 6.3 % (4.2-6.3)
--- NOTE | 2017-12-26 08:23 | NURSING ---
Swati C[place] who works with Dr. Jacobo was notified this that EKG showed irreg hr with possible old infarct, and it was brought to her attention that pt upper lip is swollen unknown to what might have caused it. Dr Cedeno was in to see pt and he was notified also of upper lip edema, no difficulty swallowing however, no new orders given by either.
--- NOTE | 2017-12-26 10:50 | CASEMGMT ---
AVI YOUSIF Face to Face with patient for initial transition planning/care coordination assessment. RN CM introduced self and role at [facility]. Patient sitting in chair, alert and oriented. Patient willing to participate in assessment and is able to answer all questions appropriately. Care providers, pharmacy, and demographics verified. See link attached. Patient wishes to discharge home, denies need for home health at this time. Patient states she has no further needs or concerns at this time. CM to follow for discharge planning needs that may arise. Disposition Plan: Patient to discharge home with family support and follow-up plans in place. Carrie LOYA, RN, CM
[2017-12-26] MEDS: Metoprolol Tartrate 50 MG Tablet PO ×2 (10:52→21:58)
[2017-12-26 11:05] LABS: Bedside Glucose 141 mg/dL (70-110)
[2017-12-26] MEDS: Cefazolin 2 GM in 0.9% Normal Saline 100 ML IV (13:54)
--- NOTE | 2017-12-26 14:15 | PCM.PN.HOSP ---
Patient Problems: Active and Suspected Problems (Last Reviewed 12/24/17 @ 18:10 by Karlos Sierra DO) Obstructive jaundice (Acute) Sigmoid thickening (Acute) Subjective: Feeling a littler better. He top lip is swollen after the ERCP yesterday but othersie she is doing ok. Objective: General: Alert, Oriented x3, No apparent distress HEENT: Atraumatic, EOMI, Normocephalic, - - scleral icterus Oral: Moist Mucosa Neck: Supple, No JVD Lungs: Clear to auscultation, Normal air movement, No rhonchi, No wheeze, No rales Cardiovascular: Regular rate, Regular Rhythm, Normal S1, Normal S2, No murmurs Abdomen: Soft, Non Tender, Non-Distended, No Hepato-splenomegaly Extremities: No edema Skin: No rashes,jaundice resolved Psych/Mental Status: Normal Affect, Appropriate Vitals/I&O's: Vital Signs Temp Pulse Resp BP Pulse Ox 99.2 F H 63 18 150/76 H 96 12/26/17 13:15 12/26/17 13:15 12/26/17 13:15 12/26/17 13:15 12/26/17 13:15 Oxygen Delivery Method Room Air Weight: 215 lb Body Mass Index (BMI) 30.8 Intake and Output for Last 24 Hours 12/24/17 12/25/17 12/26/17 23:59 23:59 23:59 Intake Total 4354 / 4354 950 / 950 Balance 4354 / 4354 950 / 950 Laboratory Results 12/25/17 19:32: POC Glucose 95 12/25/17 22:21: POC Glucose 115 H 12/26/17 05:10: Sodium 145, Potassium 3.3 L, Chloride 111 H, Carbon Dioxide 23.0, Anion Gap 11, BUN 9, Creatinine 0.70, Estim Creat Clear Calc 59.03, Est GFR (MDRD) Af Amer 107, Est GFR (MDRD) Non-Af 88, BUN/Creatinine Ratio 12.8, Glucose 140 H, Calcium 7.8 L, Total Bilirubin 1.00, AST 89 H, ALT 160 H, Alkaline Phosphatase 43 L, Total Protein 5.8 L, Albumin 2.4 L, Globulin 3.4, Albumin/Globulin Ratio 0.7 L 12/26/17 05:10: WBC 6.0, RBC 3.60 L, Hgb 10.8 L, Hct 34.3 L, MCV 95.3, MCH 30.0, MCHC 31.5 L, RDW 14.9 H, RDW Differential 51.9 H, Plt Count 206, MPV 10.4, Immature Gran % (Auto) 0.000, Neut % (Auto) 70.2 H, Lymph % (Auto) 19.1, [place] % (Auto) 9.2, Eos % (Auto) 1.2, Baso % (Auto) 0.3, Absolute Neuts (auto) 4.2, Absolute Lymphs (auto) 1.14, Total Counted Not Reportable 12/26/17 05:10: PT 15.4 H, INR 1.2, APTT 28.7 12/26/17 05:10: Hemoglobin A1c 6.3 12/26/17 06:36: POC Glucose 153 H 12/26/17 10:59: POC Glucose 141 H Current Medications Acetaminophen (Tylenol) 325 - 650 mg PO Q6H PRN PRN Reason: HAND/PAIN Hydrocodone Bitart/Acetaminophen ([place] 5mg-325mg) 1 - 2 tablet PO Q6H PRN PRN Reason: PAIN Amlodipine Besylate (Norvasc) 5 mg PO DAILY [facility] Last Admin: 12/26/17 10:54 Dose: Not Given Atorvastatin Calcium (Lipitor) 10 mg PO QHS [facility] Last Admin: 12/25/17 22:23 Dose: 10 mg Dextrose (D50w Syringe) 0 gm IV X1 PRN; Protocol PRN Reason: Hypoglycemia Last Admin: 12/25/17 06:57 Dose: 12.5 gm Duloxetine HCl (Cymbalta) 60 mg PO DAILY [facility] Last Admin: 12/26/17 10:43 Dose: Not Given Glucagon () 1 mg IM .X1 PRN PRN Reason: Hypoglycemia Pantoprazole Sodium 40 mg/ (Sodium Chloride) 110 mls @ 330 mls/hr IV Q24 [facility] Last Admin: 12/26/17 10:52 Dose: 330 mls/hr Potassium Chloride/Dextrose/Sod Cl (Kcl 20meq In D5.45ns 1000ml) 1,000 mls @ 60 mls/hr IV .[id number] [facility] Insulin Human Lispro (Humalog Kwikpen (Bkc)) 0 unit SQ TIDAC [facility] PRN Reason: Protocol Last Admin: 12/26/17 11:00 Dose: Not Given Lisinopril (Zestril) 10 mg PO DAILY [facility] Last Admin: 12/26/17 10:44 Dose: Not Given Loratadine (Claritin) 10 mg PO DAILY [facility] Last Admin: 12/26/17 10:43 Dose: Not Given Metoprolol Tartrate (Lopressor (Beta Ivelisse)) 50 mg PO BID [facility] Last Admin: 12/26/17 10:52 Dose: 50 mg Sodium Chloride () 5 - 30 ml IV UD PRN PRN Reason: SALINE FLUSH Medical Necessity - Tobacco Use Smoking Status: Former smoker Tobacco Use: Non-smoker Assessment/Plan All Active Problems (Last Reviewed 12/24/17 @ 18:10 by Karlos Sierra DO) Obstructive jaundice (Acute) Sigmoid thickening (Acute) Rheumatoid arthritis (Acute) Acute kidney injury (Acute) Dehydration (Acute) Common bile duct obstruction (Acute) Diarrhea (Acute) Type 2 diabetes mellitus (Acute) 1. Biliray duct dilatation both extra and intrahepatic/Sigmoid colon thickening/Hyperbilirubinemia - ERCP and sigmoidoscopy yesterday with normal flex sig and ERCP did not find a stone - LFT trending down and bili is normal - Continue with IVF with D5 - Plan for lap carolyne today 2. Rheumatoid Arthritis - Hold methotrexate until after any planned surgery 3. HTN/HLD - She is on lisinopril, norvasc and lopressor - Hold lisinopril tomorrow morning - C/w crestor 4. DM2 - Hold her home oral hypoglycemics -C/w SSI and monitor - BG was low this am so D5 was added to her fluids 5. Depression/neuropathy - c/w cymbalata DVT: SCDs Diet: NPO CODE: FULL Thank you for the consult, will continue to follow. Code Visit Inpatient E&M: 82528 Subs Hosp L2
[2017-12-26] MEDS: Bupivacaine 0.5% PF 10 ML VIAL (15:28)
--- NOTE | 2017-12-26 15:38 | PCM.OPRPT ---
Problem List (1) Obstructive jaundice Status: Acute Report of Operation Date of Procedure: 12/26/17 Pre-Operative Diagnosis: Chronic cholecystitis, sludge with preoperative performed ERCP and sphincterotomy for drainage Post-Operative Diagnosis: Same plus abnormal liver appearance Surgery/Procedure Performed:: Laparoscopic cholecystectomy with cholangiography. Daniel-Cut needle core right lobe liver biopsy Description of Surgical Findings:: Timeout and informed consent was obtained. 67-year-old female was taken operating room. She underwent general ventricular-based anesthesia. Ancef 2 g given intravenous preoperatively. The abdomen sterilely prepped draped. 0.5% Marcaine was used as local anesthetic. Total 30 cc was used. Local was instilled. Incisions created. An infraumbilical midline incision was created. Holding sutures of 0 Vicryl placed. Varies needle inserted. Saline drop test performed. The abdomen was insufflated with CO2 to a pressure of 10 mmHg pressure. Eleanor trocar inserted. 10 lap scope inserted. No evidence of turgor injuries. The abdomen is inspected. Gallbladder appeared to be edematous inflamed there were adhesions of omentum to it but these appear to be more chronic. The liver had an abnormal irregular texture to it. I placed 5 mm trochars in the epigastric region and right upper quadrant. The gallbladder was distracted. Tissues were very hemorrhagic and edematous. Blunt dissection was used generous Hem-o-concepcion clips were used the critical view was achieved with the dilated cystic duct identified the cystic artery identified. A Hem-o-concepcion clip was placed on the cystic artery proximally distally prior to transecting it. The cystic duct had Hem-o-concepcion clip placed on it. Incision was created in the cystic duct and through a 14-gauge Angiocath cholangiocatheter was discussed inserted. Fluoroscopically controlled claims grams obtained demonstrating a markedly enlarged common bile duct. There was flow into the small bowel albeit through an area of diminished in size. It is of note that the patient had an ERCP yesterday with sphincterotomy. I did not see any floating intraluminal defects. There were 2 bright spots on the cholangiograms but these did not appear to be mobile and possibly related to the balloon sweeping from the ERCP. Subsequent placed 2 large Hem-o-concepcion clips on the cystic duct stump prior to transecting it. The gallbladder again inspected and there was a posterior cystic artery that was clipped twice proximally with Hem-o-concepcion clips prior to transecting it. The gallbladder was carefully dissected free from the liver bed. The tissue was rather friable. Hemostasis was achieved. The gallbladder was released and immediately placed in the retrieval bag. The right upper quadrant was irrigated and aspirated free of excess fluid hemostasis was intact. Because of the irregular liver parents I placed to cut needle through the Angiocath site and did a single core biopsy of the right lobe of the liver. Core biopsy appear to be adequate. That site was treated with electrocautery and hemostasis was intact. The gallbladder was then exited through the umbilicus. No fascial enlargement was required. The liver bed area again was inspected as was the biopsy site. Both were hemostatic. The trochars were removed under visualization. The abdomen was allowed to deflate of the CO2. The fascia at the umbilicus was approximated with interrupted 0 Vicryl figure 8 suture. Skin edges were approximated interrupted 4 Monocryl subdermal stitches. Steri-Strips Telfa and OpSite dressings applied. Sponge and instrument and needle counts were reported to the surgeon to be correct. Blood loss was approximately 25 cc. She was taken to the recovery area in satisfactory condition without apparent complication Specimens gallbladder and Daniel-Cut needle core right lobe liver biopsy. Drains none. Blood loss 25 cc. Haris Jacobo M.D., F.A.C.S. Type of Anesthesia:: General Anesthesiologist: Gaby Espinosa Specimen's removed: None
[2017-12-26 16:10] LABS: Bedside Glucose 177 mg/dL (70-110)
[2017-12-26] MEDS: Cholestyramine/Sucrose 4 GM/PACKET PO (16:33)
[2017-12-26 19:16] LABS: Bedside Glucose 180 mg/dL (70-110)
--- NOTE | 2017-12-26 20:58 | NURSING ---
Patient notes as having liquid green diarrhea.
--- NOTE | 2017-12-26 21:45 | NURSING ---
Per patient and her , Dr. Medina's office called her house yesterday and left a message that they do not want her taking the crestor for approximately 4 weeks. This RN will hold patients lupe pleitez.
--- NOTE | 2017-12-26 22:03 | NURSING ---
Per patient her and her ambulated in hallway tonight. Tolerated well.
[2017-12-26 22:11] LABS: Bedside Glucose 258 mg/dL (70-110)
--- NOTE | 2017-12-27 | GALL_PTH ---
PATIENT: JULIANNA GARVEY LOC: MS3 U#:[id number] AGE/SX: 67/F ROOM: IN322 RE12/24/[address]: Dr. Malik Washington MD : 1950 BED: 1 DIS: 12/27/2017 SPEC #: [id number] RECD: 12/27/17 10:33 STATUS: JORDAN REJose #: [id number] NIKUNJ: 12/27/17 00:[address]: Haris Jacobo DEPT: SURGICAL PATHOLOGY RECD BY: Wilmer Mireles ENTERED: 12/27/17 10:34 SP TYPE: GALLBLADDE OTHR DR: DO Dr. Malik Taylor MD Dr. Paul Nielsen, MD Dr. Robert D Cebul, MD Tissues: A - Gallbladder, NOS B - Liver, NOS Procedures: Surgery Specimen Level III Surgery Specimen Level IV Comments: @ Ordering doctor for SUIII edited from to @ saqib HERNANDEZ at 12/27/17 144 @ Ordering doctor for SUIV edited from to @ by MARY at 12/27/17 1441 @ Submitting doctor edited from to @ by MARY at 12/27/17 1441 HEADER OPERATION: Laparoscopic cholecystectomy with IOC, Cody-Cut liver biopsy PRE-OP DIAGNOSIS: Common bile duct obstruction; cholecystitis TISSUE SUBMITTED: A ? Gallbladder, B ? Cody-Cut liver biopsy MICROSCOPIC DIAGNOSIS A. Gallbladder, cholecystectomy: Chronic cholecystitis. B. Liver, Cody-Cut biopsy: Minimal portal inflammation, grade 1. AM:héctor 12/30/17 COMMENT B. Iron stain with matched control does not reveal intraparenchymal presence of iron. Reticulin stain with matched control reveals a preserved hepatic parenchymal architecture. Trichrome stain with matched control does not reveal fibrosis or cirrhosis. PAS stain with and without diastase does not reveal accumulation of abnormal proteins. The minimal chronic inflammation is confined mostly to the portal region. Clinical correlation is suggested. MICROSCOPIC DESCRIPTION Slides are reviewed. GROSS DESCRIPTION A - Received is one container labeled with the patient's name and designated gallbladder. The specimen consists of a gallbladder measuring 10 x 3.5 x 2.5 cm. The external surface is smooth and glistening. Focally, it is granular, hemorrhagic and contains cautery artifact. The lumen of the gallbladder contains green bile and no calculi. The mucosa is bile-stained and without any mass lesions. The gallbladder wall averages 0.2 cm in thickness and is free of mass lesions. Floor Manager sections of the gallbladder and the cystic duct are submitted in one cassette. / AM:héctor 12/27/17 B - Received in fixative is one container labeled with the patient's name and designated cody-cut liver biopsy. The specimen consists of an elongated fragment of paulino tissue measuring 1.5 cm in length and 1 cm in average diameter. The specimen is submitted in its entirety in one cassette. AM:héctor 12/27/17 TC:3 [facility]: [id number], [id number], [id number]
[2017-12-27 04:05] VITALS: BP 142/69; PULSE 72; RESP 18; TEMP 37.1; O2SAT 92
--- NOTE | 2017-12-27 05:28 | PN.SURG_ITS ---
Patient Problems: Active and Suspected Problems (Last Reviewed 12/24/17 @ 18:10 by Karlos Sierra DO) Obstructive jaundice (Acute) Sigmoid thickening (Acute) Subjective: Pt is feeling better Decreased diarrhea, smaller and more controllable overnight x 2 - Physical Exam General: Alert Lungs: Clear to auscultation Abdomen: Soft, Hypoactive Bowel Sounds, Distended Vital Signs Temp Pulse Resp BP Pulse Ox 98.7 F 72 18 142/69 H 92 12/27/17 04:05 12/27/17 04:05 12/27/17 04:05 12/27/17 04:05 12/27/17 04:05 Oxygen Flow Rate (L/min) 2 Oxygen Delivery Method Room Air Weight: 215 lb Body Mass Index (BMI) 30.8 Finger Stick Blood Glucose 177 Intake and Output for Last 24 Hours 12/25/17 12/26/17 12/27/17 23:59 23:59 23:59 Intake Total 4354 / 4354 3737 / 3737 Balance 4354 / 4354 3737 / 3737 Laboratory Tests Past 24 Hrs 12/26/17 12/26/17 12/26/17 05:10 05:10 05:10 WBC 6.0 RBC 3.60 L Hgb 10.8 L Hct 34.3 L MCV 95.3 MCH 30.0 MCHC 31.5 L RDW 14.9 H RDW Differential 51.9 H Plt Count 206 MPV 10.4 Immature Gran % (Auto) 0.000 Neut % (Auto) 70.2 H Lymph % (Auto) 19.1 [place] % (Auto) 9.2 Eos % (Auto) 1.2 Baso % (Auto) 0.3 Absolute Neuts (auto) 4.2 Absolute Lymphs (auto) 1.14 Total Counted Not Reportable PT 15.4 H INR 1.2 APTT 28.7 Sodium 145 Potassium 3.3 L Chloride 111 H Carbon Dioxide 23.0 Anion Gap 11 BUN 9 Creatinine 0.70 Estim Creat Clear Calc 59.03 Est GFR (MDRD) Af Amer 107 Est GFR (MDRD) Non-Af 88 BUN/Creatinine Ratio 12.8 Glucose 140 H Hemoglobin A1c Calcium 7.8 L Total Bilirubin 1.00 AST 89 H ALT 160 H Alkaline Phosphatase 43 L Total Protein 5.8 L Albumin 2.4 L Globulin 3.4 Albumin/Globulin Ratio 0.7 L 12/26/17 05:10 WBC RBC Hgb Hct MCV MCH MCHC RDW RDW Differential Plt Count MPV Immature Gran % (Auto) Neut % (Auto) Lymph % (Auto) [place] % (Auto) Eos % (Auto) Baso % (Auto) Absolute Neuts (auto) Absolute Lymphs (auto) Total Counted PT INR APTT Sodium Potassium Chloride Carbon Dioxide Anion Gap BUN Creatinine Estim Creat Clear Calc Est GFR (MDRD) Af Amer Est GFR (MDRD) Non-Af BUN/Creatinine Ratio Glucose Hemoglobin A1c 6.3 Calcium Total Bilirubin AST ALT Alkaline Phosphatase Total Protein Albumin Globulin Albumin/Globulin Ratio POC Glucose 12/26/17 12/26/17 12/26/17 21:56 18:02 16:07 POC Glucose 258 H 180 H 177 H 12/26/17 12/26/17 10:59 06:36 POC Glucose 141 H 153 H Medical Necessity - Tobacco Use Smoking Status: Former smoker Tobacco Use: Non-smoker Assessment/Plan All Active Problems (Last Reviewed 12/24/17 @ 18:10 by Karlos Sierra DO) Obstructive jaundice (Acute) Sigmoid thickening (Acute) Rheumatoid arthritis (Acute) Acute kidney injury (Acute) Dehydration (Acute) Common bile duct obstruction (Acute) Diarrhea (Acute) Type 2 diabetes mellitus (Acute) Pt is improved Will hold on plans for more urgent colonoscopy looking for microcytic colitis at this moment. Will plan cscope when recovered as outpt if she continues to improve Will plan home on cholestyramine and omeprazole Possible discharge later today pending her course
[2017-12-27] MEDS: Insulin Lispro 100 UNIT/ML INSULN.PEN SQ ×2 (06:41→11:12)
[2017-12-27 06:45] LABS: Absolute Lymphocyte Count 0.92 X10^3/ul (0.83-4.51); Absolute Neutrophil Count 6.6 X10^3/uL (2.0-7.7); Basophil# 0.04 X10^3/uL; Basophil% 0.5 % (0-1); Eosinophil# 0.01 X10^3/uL; Eosinophils% 0.1 % (0-5); Hematocrit 37.5 % (37-47); Lymphocyte # 0.92 X10^3/ul (4.0); Mean Corpuscular Hgb 30.7 pg (27.0-32.0); Mean Corpuscular Volume 95.9 fL (81-99); Mean Platelet Vol. 11.1 fl (6.2-12.0); Monocyte# 0.74 X10^3/uL; Monocyte% 8.9 % (0-10); Neutrophil # 6.61 X10^3/uL (2.7-7.7); Neutrophil % 79.1 % (47-70); Platelet Count 242 K/mm3 (150-450); RBC Distribution Width CV 14.9 % (11.6-14.6); RBC Distribution Width SD 50.5 fl (35.1-43.9); Red Blood Count 3.91 M/mm3 (4.2-5.4); White Blood Count 8.4 K/mm3 (4.4-11.0)
[2017-12-27 06:47] LABS: POSITIVE COUNT NO; POSITIVE DIFFERENTIAL NO; POSITIVE MORPHOLOGY NO
[2017-12-27 06:51] LABS: Bedside Glucose 200 mg/dL (70-110)
[2017-12-27 07:05] LABS: ALB/GLOB Ratio 0.6 RATIO (0.9-2.4); AST(SGOT) 48 U/L (15-37); Alanine Aminotransfer ALT/SGPT 122 U/L (13-56); Albumin, Serum 2.4 g/dL (3.2-5.0); Alkaline Phosphatase 44 U/L (45-117); Anion Gap 12 (5-15); BUN 8 mg/dL (7-18); BUN/Creat Ratio 9.9 RATIO (10-20); Calcium,Total 8.3 mg/dL (8.5-10.1); Chloride 110 mmol/L (98-107); Creatinine, Serum 0.81 mg/dL (0.55-1.02); EST Glomerular Filtration Rate 75 mL/min (>60); Est Glom Filt Rate - Afr Amer 91 mL/min (>60); Estimated Creatinine Clearance 72.88 ml/min; Globulin 4.2 g/dL (2.2-4.2); Glucose 213 mg/dL (74-106); Potassium 4.2 mmol/L (3.5-5.1); Protein, Total 6.6 g/dL (6.4-8.2); Sodium Level 141 mmol/L (136-145)
[2017-12-27 07:31] VITALS: BP 188/79; PULSE 52; RESP 16; TEMP 36.5; O2SAT 98
[2017-12-27] MEDS: DULoxetine Hcl 60 MG Capsule PO (07:36)
[2017-12-27] MEDS: Cholestyramine/Sucrose 4 GM/PACKET PO (07:37)
[2017-12-27] MEDS: Loratadine 10 MG Tablet PO (07:37)
[2017-12-27] MEDS: Pantoprazole Sodium 40 MG Tablet PO (07:37)
[2017-12-27 07:38] VITALS: PULSE 52
[2017-12-27] MEDS: amLODIPine 5 MG Tablet PO (07:38)
[2017-12-27] MEDS: Metoprolol Tartrate 50 MG Tablet PO (07:38)
[2017-12-27] MEDS: Lisinopril 10 MG Tablet PO (07:38)
--- NOTE | 2017-12-27 09:04 | PCM.PN.HOSP ---
Patient Problems: Active and Suspected Problems (Last Reviewed 12/24/17 @ 18:10 by Karlos Sierra DO) Obstructive jaundice (Acute) Sigmoid thickening (Acute) Subjective: Tolerating food, and has minimal pain. Objective: General: Alert, Oriented x3, No apparent distress HEENT: Atraumatic, EOMI, Normocephalic, - - scleral icterus Oral: Moist Mucosa Neck: Supple, No JVD Lungs: Clear to auscultation, Normal air movement, No rhonchi, No wheeze, No rales Cardiovascular: Regular rate, Regular Rhythm, Normal S1, Normal S2, No murmurs Abdomen: Soft, mild Tender over surgical site, Non-Distended, No Hepato-splenomegaly Extremities: No edema Skin: No rashes,jaundice resolved Psych/Mental Status: Normal Affect, Appropriate Vitals/I&O's: Vital Signs Temp Pulse Resp BP Pulse Ox 97.7 F L 52 L 16 188/79 H 98 12/27/17 07:31 12/27/17 07:38 12/27/17 07:31 12/27/17 07:31 12/27/17 07:31 Oxygen Flow Rate (L/min) 2 Oxygen Delivery Method Room Air Weight: 215 lb Body Mass Index (BMI) 30.8 Finger Stick Blood Glucose 177 Intake and Output for Last 24 Hours 12/25/17 12/26/17 12/27/17 23:59 23:59 23:59 Intake Total 4354 / 4354 3737 / 3737 593 / 593 Balance 4354 / 4354 3737 / 3737 593 / 593 Laboratory Results 12/26/17 10:59: POC Glucose 141 H 12/26/17 16:07: POC Glucose 177 H 12/26/17 18:02: POC Glucose 180 H 12/26/17 21:56: POC Glucose 258 H 12/27/17 06:28: Sodium 141, Potassium 4.2, Chloride 110 H, Carbon Dioxide 19.0 L, Anion Gap 12, BUN 8, Creatinine 0.81, Estim Creat Clear Calc 72.88, Est GFR (MDRD) Af Amer 91, Est GFR (MDRD) Non-Af 75, BUN/Creatinine Ratio 9.9 L, Glucose 213 H, Calcium 8.3 L, Total Bilirubin 1.00, AST 48 H, ALT 122 H, Alkaline Phosphatase 44 L, Total Protein 6.6, Albumin 2.4 L, Globulin 4.2, Albumin/Globulin Ratio 0.6 L 12/27/17 06:28: WBC 8.4, RBC 3.91 L, Hgb 12.0, Hct 37.5, MCV 95.9, MCH 30.7, MCHC 32.0, RDW 14.9 H, RDW Differential 50.5 H, Plt Count 242, MPV 11.1, Immature Gran % (Auto) 0.400, Neut % (Auto) 79.1 H, Lymph % (Auto) 11.0 L, [place] % (Auto) 8.9, Eos % (Auto) 0.1, Baso % (Auto) 0.5, Absolute Neuts (auto) 6.6, Absolute Lymphs (auto) 0.92, Total Counted Not Reportable 12/27/17 06:39: POC Glucose 200 H Current Medications Acetaminophen (Tylenol) 325 - 650 mg PO Q6H PRN PRN Reason: HAND/PAIN Hydrocodone Bitart/Acetaminophen ([place] 5mg-325mg) 1 - 2 tablet PO Q6H PRN PRN Reason: PAIN Amlodipine Besylate (Norvasc) 5 mg PO DAILY [facility] Last Admin: 12/27/17 07:38 Dose: 5 mg Atorvastatin Calcium (Lipitor) 10 mg PO QHS [facility] Last Admin: 12/26/17 21:58 Dose: Not Given Cholestyramine Resin (Questran 4gm Packet) 4 gm PO BIDAC [facility] Last Admin: 12/27/17 07:37 Dose: 4 gm Dextrose (D50w Syringe) 0 gm IV X1 PRN; Protocol PRN Reason: Hypoglycemia Last Admin: 12/25/17 06:57 Dose: 12.5 gm Duloxetine HCl (Cymbalta) 60 mg PO DAILY [facility] Last Admin: 12/27/17 07:36 Dose: 60 mg Glucagon () 1 mg IM .X1 PRN PRN Reason: Hypoglycemia Potassium Chloride/Dextrose/Sod Cl (Kcl 20meq In D5.45ns 1000ml) 1,000 mls @ 30 mls/hr IV .[id number] [facility] Last Admin: 12/27/17 05:35 Dose: Not Given Insulin Human Lispro (Humalog Kwikpen (Bkc)) 0 unit SQ TIDAC [facility] PRN Reason: Protocol Last Admin: 12/27/17 06:41 Dose: 2 u Lisinopril (Zestril) 10 mg PO DAILY [facility] Last Admin: 12/27/17 07:38 Dose: 10 mg Loperamide HCl (Imodium) 2 mg PO Q4H PRN PRN PRN Reason: Diarrhea Loratadine (Claritin) 10 mg PO DAILY [facility] Last Admin: 12/27/17 07:37 Dose: 10 mg Metoprolol Tartrate (Lopressor (Beta Ivelisse)) 50 mg PO BID [facility] Last Admin: 12/27/17 07:38 Dose: 50 mg Pantoprazole Sodium (Protonix) 40 mg PO DAILY [facility] Last Admin: 12/27/17 07:37 Dose: 40 mg Potassium Chlor[facility] (K[facility]Dur) [facility] Last Admin: 12/27/17 07:37 Dose: 20 meq Sodium Chloride () 5 - 30 ml IV UD PRN PRN Reason: SALINE FLUSH Medical Necessity - Tobacco Use Smoking Status: Former smoker Tobacco Use: Non-smoker Assessment/Plan All Active Problems (Last Reviewed 12/24/17 @ 18:10 by Karlos Sierra DO) Obstructive jaundice (Acute) Sigmoid thickening (Acute) Rheumatoid arthritis (Acute) Acute kidney injury (Acute) Dehydration (Acute) Common bile duct obstruction (Acute) Diarrhea (Acute) Type 2 diabetes mellitus (Acute) 1. Biliary duct dilatation both extra and intrahepatic/Sigmoid colon thickening/Hyperbilirubinemia - ERCP and sigmoidoscopy with normal flex sig and ERCP did not find a stone - LFT trending down and bili is normal - DC IVF and ok to DC from medicine standpoint 2. Rheumatoid Arthritis - Can resume methotrexate on discharge 3. HTN/HLD - She is on lisinopril, norvasc and lopressor - Renal function is ok so can continue lisinopril - C/w crestor 4. DM2 - Hold her home oral hypoglycemics, restart on discharge -C/w SSI and monitor - BG was low so D5 was added to her fluids 5. Depression/neuropathy - c/w cymbalata DVT: SCDs Diet: ADAT CODE: FULL Thank you for the consult, will continue to follow. Code Visit Inpatient E&M: 26819 Subs Hosp L2
[2017-12-27] MEDS: HYDROcodone Bitartrate/Apap 5/325 Tablet PO (11:15)
[2017-12-27 11:20] VITALS: BP 155/67; PULSE 66; RESP 16; TEMP 36.5; O2SAT 96
[2017-12-27 11:20] LABS: Bedside Glucose 203 mg/dL (70-110)
[2017-12-27 14:05] VITALS: BP 141/67; PULSE 63; RESP 16; TEMP 36.3; O2SAT 97
--- NOTE | 2018-01-07 06:29 | PCM.DC.SUM ---
Discharge Date and Diagnosis Date of Admission: 12/24/17 Date of Discharge: 12/27/17 - Primary Discharge Diagnosis Obstructive jaundice with dilated common bile duct Chronic cholecystitis Abnormal liver appearance - Secondary Discharge Diagnosis Chronic Problems (Last Reviewed 12/24/17 @ 18:10 by Karlos Sierra DO) Abnormal electrocardiogram [ECG] [EKG] (Chronic) Encounter for long-term current use of high risk medication (Chronic) Hypertension (Chronic) Hyperlipidemia (Chronic) Ventricular premature depolarization (Chronic) Hospital Course and Treatment Operations: ERCP, - - Laparoscopic cholecystectomy with liver biopsy Summary of Care Provided: The patient is a 67 year old F who presented to our office and was directly admitted to the Hospital for abdominal pain and obstructive jaundice. Patient had a CT of the abdomen/pelvis which demonstrated: Dilated common bile duct with intrahepatic bile duct dilatation and a prominent distention of the gallbladder. No visualized compressive pancreatic mass or radiodense CBD stone. Radiolucent CBD stone or other intrinsic lesion of the duct cannot be excluded. Suggest MRCP for further evaluation. Colonic diverticulosis, without evidence for acute diverticulitis. Focal narrowing and mural thickening of a short segment of proximal sigmoid colon may be artifact of peristalsis, however, colonic mass is not excluded. Would suggest follow-up colonoscopy. Colonic diverticulosis, without evidence for acute diverticulitis. Duodenal diverticulum without evidence for duodenal diverticulitis. Small nonobstructive left renal calculus. No demonstrated ureteral calculus or hydronephrosis. Atherosclerosis. No evidence for appendicitis. Patient's bilirubin was elevated to 3.10 on 12/25. Dr. Tee performed an ERCP on 12/25. Patient also had evidence of thickening of the sigmoid colon. Dr. Tee performed a sigmoidoscopy on 12/[address] Dr. Jacobo performed a laparoscopic cholecystectomy and liver biopsy on 12/26. Patient tolerated the procedure well. Upon discharge, pain was well controlled on oral pain medication. She tolerated her diet. She was ambulating well. It was recommended the patient have a colonoscopy as an outpatient. Discharge Diet: Light diet - advance as tolerated Discharge Activity: Return to Normal Activity, May Not Drive - for 2-3 days or while taking narcotic pain medicataions., - - Do not drive, work heavy equipment or sign legal documents for 24 hours. May shower in (days): 1 - with the bandage in place. Additional Activity Instructions:: Pain medication may cause nausea. You should typically eat light foods as you take your pain medications. Pain medication may also cause constipation. If this is a problem for you, please discuss with your doctor. Call your doctor if your incision/area has: Continuous Slow Oozing, Sudden Increased Bleeding, Increased Pain/ Swelling, Increased Redness, Foul Smelling Discharge, Fever of 101 or Higher Call your doctor if you observe: Fever of 101 or Higher Suture Line Care: Avoid Pulling/Pushing, Avoid Pinching/Bending Additional Dressing/Incision Instructions:: Leave operative bandaids on for 2 days. When you remove dressing, leave Steri-Strips on until your follow-up appointment, or until the Steri-Strips fall off on their own. Home Medications: Medications to take at Discharge amlodipine 5 mg tablet 5 mg PO QDAY tab 07/15/17 aspirin 81 mg tablet,delayed release 81 mg PO QDAY tab 07/15/17 cetirizine 10 mg tablet 10 mg PO QDAY tab 07/15/17 insulin glargine (U-300) 300 unit/mL (1.5 mL) subcutaneous pen 60 unit SC DAILY 07/15/17 metformin 1,000 mg tablet 1,000 mg PO BID 07/15/17 metoprolol tartrate 50 mg tablet 50 mg PO BID 07/15/17 duloxetine 60 mg capsule,delayed release 60 mg PO QDAY 09/11/17 fluticasone 50 mcg/actuation nasal spray,suspension 2 spray INTRANASAL QDAY PRN 09/11/17 methotrexate sodium 2.5 mg tablet 25 mg PO MO tab 09/11/17 Alogliptin Jose Luis/Pioglitazone [Oseni 25-45 mg Tablet] 1 each PO DAILY 12/24/17 Calcium Carbonate [Calcium] 600 mg PO BID 12/24/17 Cyanocobalamin (Vitamin B-12) [B-12] 5,000 mcg PO BID 12/24/17 benazepril 20 mg tablet 10 mg PO QDAY tab 12/24/17 dapagliflozin 10 mg tablet 10 mg PO QDAY 12/24/17 folic acid 1 mg tablet 1 mg PO BID tab 12/24/17 hydrocodone 5 mg-acetaminophen 325 mg tablet 1 tab PO Q6H PRN 12/24/17 multivitamin tablet 1 tab PO BID tab 12/24/17 rosuvastatin 5 mg tablet 5 mg PO .COMPLEX 12/25/17 Cholestyramine/Aspartame [Cholestyramine Light Packet] 4 gm PO TID #42 powd.pack 12/26/17 Hydrocodone/Acetaminophen [Archie 5-325 Tablet] 1 each PO Q6H PRN PRN 3 Days #10 tablet 12/26/17 Omeprazole 40 mg PO DAILY #30 capsule. 12/26/17 Following Prescrptions Were Given to Patient: Hydrocodone/Acetaminophen [Archie 5-325 Tablet] 1 each PO Q6H PRN PRN 3 Days #10 tablet PRN Reason: Pain Omeprazole 40 mg PO DAILY #30 capsule. Cholestyramine/Aspartame [Cholestyramine Light Packet] 4 gm PO TID #42 powd.pack Primary Care Physician: Lawrence Fisher MD [Primary Care Provider] - Please Follow Up With: Haris Jacobo MD - [phone] When: 10 days Disposition: Home Minutes spent on discharge:: 15 Patient Condition:: Stable Medical Necessity - Tobacco Use Smoking Status: Former smoker Tobacco Use: Non-smoker Meaningful Use Info Meaningful Use Diagnoses (Choose all that apply): None applicable Code Visit Inpatient E&M: 14950 Disch Hosp
== END 2017-12-27 15:28 | disposition home or self-care (01) | DRG 418 ==
PROVIDERS: Anesthesiology; Surgery; Admitting Provider Surgery; Family Provider Family Medicine; PCP Family Medicine; Visit Provider Family Medicine
PROC: 0F798ZZ Dilation of Common Bile Duct, Via Natural or Artificial Opening Endoscopic (ICD-10-PCS; CPT 43260; principal; 2017-12-25 14:30)
PROC: 0DJD8ZZ Inspection of Lower Intestinal Tract, Via Natural or Artificial Opening Endoscopic (ICD-10-PCS; CPT 45330; 2017-12-25 14:30)
PROC: 0FT44ZZ Resection of Gallbladder, Percutaneous Endoscopic Approach (ICD-10-PCS; CPT 47610; principal; 2017-12-26 13:40)
DX: K83.1 Obstruction of bile duct (principal); N17.9 Acute kidney failure, unspecified; K81.1 Chronic cholecystitis; R19.8 Other specified symptoms and signs involving the digestive system and abdomen; M06.9 Rheumatoid arthritis, unspecified; E78.5 Hyperlipidemia, unspecified; I10 Essential (primary) hypertension; K29.80 Duodenitis without bleeding; E11.319 Type 2 diabetes mellitus with unspecified diabetic retinopathy without macular edema; Z79.4 Long term (current) use of insulin; Z87.891 Personal history of nicotine dependence; R11.2 Nausea with vomiting, unspecified; K57.30 Diverticulosis of large intestine without perforation or abscess without bleeding; R19.7 Diarrhea, unspecified; E86.0 Dehydration; E87.6 Hypokalemia
CPT/HCPCS: 36415; 74177; 74300; 74328; 76000; 76700; 80053; 80061; 82248; 82962; 83036; 83690; 85025; 85610; 85730; 87493; 87506; 88304; 88305; 93005; J7120; Q9967; A4216; C1726; J2405

== ENCOUNTER 2018-02-25 06:28 | Day surgery (SDC) | payer MEDICARE, OTHER, SELFPAY ==
[2018-02-25 07:00] VITALS: BP 153/62; PULSE 93; RESP 18; TEMP 36.6; O2SAT 100; BMI 30.2
[2018-02-25 07:11] LABS: Bedside Glucose 188 mg/dL (70-110)
--- NOTE | 2018-02-25 07:49 | HP.PCM_ITS ---
Problem List (1) Duodenitis Status: Acute (2) Sigmoid thickening Status: Acute History of Present Illness Date of Admission: 02/25/18 The patient is a 68 year old F who recently had ERCP. At that time she had severe duodenitis. She was started on a barrier medication and PPI and I am repeating an EGD to ensure that it is healing. The patient does not report any upper abdominal pain. She also had a flexible sigmoidoscopy at the time due to sigmoid thickening on the CAT scan. This was normal but this was unprepped. She has never had a screening colonoscopy and she is due. Past Medical History Past Medical History (Chronic Problems): Chronic Problems (Last Reviewed 12/24/17 @ 18:10 by Karlos Sierra DO) Abnormal electrocardiogram [ECG] [EKG] (Chronic) Encounter for long-term current use of high risk medication (Chronic) Hypertension (Chronic) Hyperlipidemia (Chronic) Ventricular premature depolarization (Chronic) Medical History: Medical History (Last Reviewed 12/24/17 @ 18:10 by Karlos Sierra DO) Rheumatoid arthritis (Acute) M06.9 Acute kidney injury (Acute) N17.9 Common bile duct obstruction (Acute) K83.1 Diarrhea (Acute) R19.7 Abnormal electrocardiogram [ECG] [EKG] (Chronic) R94.31 Encounter for long-term current use of high risk medication (Chronic) Z79.899 Type 2 diabetes mellitus (Acute) E11.9 Hypertension (Chronic) I10 Hyperlipidemia (Chronic) E78.5 Ventricular premature depolarization (Chronic) I49.3 IBS (irritable bowel syndrome) K58.9 Pernicious anemia D51.0 Diabetic neuropathy E11.40 Diabetic retinopathy E11.319 Rheumatoid arthritis M06.9 Allergies latex Allergy (Verified 02/19/18 10:29) Swelling gadalidium Allergy (Severe, Uncoded 12/24/17 22:09) windpipe swelled shut stress test dye Home Medications: Ambulatory Orders Medication Instructions Recorded amlodipine 5 mg tablet 5 mg PO QDAY tab 07/15/17 aspirin 81 mg tablet,delayed 81 mg PO QDAY tab 07/15/17 release cetirizine 10 mg tablet 10 mg PO QDAY tab 07/15/17 insulin glargine (U-300) conc. 300 65 unit SC DAILY 07/15/17 unit/mL (1.5 mL) subcutaneous pen metformin 1,000 mg tablet 1,000 mg PO BID 07/15/17 metoprolol tartrate 50 mg tablet 50 mg PO BID 07/15/17 duloxetine 60 mg capsule,delayed 60 mg PO QDAY 09/11/17 release fluticasone 50 mcg/actuation nasal 2 spray INTRANASAL QDAY PRN 09/11/17 spray,suspension methotrexate sodium 2.5 mg tablet 12.5 mg PO MO tab 09/11/17 Alogliptin Jose Luis/Pioglitazone 1 each PO DAILY 12/24/17 [Oseni 25-45 mg Tablet] Calcium Carbonate [Calcium] 600 mg PO BID 12/24/17 benazepril 20 mg tablet 10 mg PO QDAY tab 12/24/17 dapagliflozin 10 mg tablet 10 mg PO QDAY 12/24/17 folic acid 1 mg tablet 1 mg PO BID tab 12/24/17 multivitamin tablet 1 tab PO BID tab 12/24/17 rosuvastatin 5 mg tablet 5 mg PO .COMPLEX 12/25/17 Omeprazole 40 mg PO DAILY #30 capsule. 12/26/17 Cholestyramine/Aspartame 4 gm PO PRN PRN 02/19/18 [Cholestyramine Light Packet] leucovorin tablet 15 mg PO MO 02/19/18 Surgical History: no surgical history Psychiatric History: No pertinent psych hx Smoking Status: Former smoker - *Family History Maternal Family History: Family History (Last Reviewed 12/24/17 @ 18:10 by Karlos Sierra DO) Father CAD (coronary artery disease) Review of Systems Constitutional: Denies: Anorexia, Fever HEENT: Denies: Difficulty Swallowing, Hard of Hearing Cardiovascular: Denies: Chest Pain Respiratory: Denies: Cough Gastrointestinal: Denies: Abdominal Pain, Constipation, Nausea, Vomiting Musculoskeletal: Denies: Arm Pain Skin: Denies: Dryness, Jaundice Psychiatric: Denies: Anxiety Hematologic/ Lymphatic: Denies: Adenopathy VTE Information - Inpt Only VTE Present on Admission: No Patient Problems: Active and Suspected Problems (Last Reviewed 12/24/17 @ 18:10 by Karlos Sierra DO) Duodenitis (Acute) - Physical Exam General: Alert, Oriented x3, Cooperative HEENT: Atraumatic, PERRLA, EOMI, Normocephalic Neck: Supple, No JVD, Negative Carotid Bruits Lungs: Clear to auscultation, Normal air movement Cardiovascular: Regular rate, No murmurs Abdomen: Bowel Sounds Present, Soft, Non Tender Extremities: No edema, Capillary Refill Less than 3 Seconds Skin: No rashes, No breakdown Musculoskeletal: No Tenderness to Palpation of Joints or Extremities Neurological: Cranial nerves II-XII grossly intact Psych/Mental Status: Normal Affect, Appropriate Vital Signs Temp Pulse Resp BP Pulse Ox 97.9 F 93 18 153/62 H 100 02/25/18 07:00 02/25/18 07:00 02/25/18 07:00 02/25/18 07:00 02/25/18 07:00 Oxygen Delivery Method Room Air Weight: 210 lb 15.718 oz Body Mass Index (BMI) 30.2 Finger Stick Blood Glucose 177 POC Glucose 02/25/18 07:06 POC Glucose 188 H Assessment/Plan All Active Problems (Last Reviewed 12/24/17 @ 18:10 by Karlos Sierra DO) Obstructive jaundice (Acute) Sigmoid thickening (Acute) Duodenitis (Acute) Rheumatoid arthritis (Acute) Acute kidney injury (Acute) Dehydration (Acute) Common bile duct obstruction (Acute) Diarrhea (Acute) Type 2 diabetes mellitus (Acute) 68-year-old female with duodenitis and sigmoid thickening 1. Patient has severe duodenitis during ERCP. She has been started on medications and I am repeating an EGD to ensure that this is healing 2. Patient had sigmoid thickening on CT scan. During EGD I did not unprepped flexible sigmoidoscopy and this appeared normal. She has never had a screening colonoscopy. I recommend a full colonoscopy for evaluation of the colon. 3. I explained endoscopy in detail to the patient. I explained the risks including but not limited to stroke or heart attack with anesthesia, perforation of the GI tract, bleeding, infection. I explained that any of these could necessitate further emergency surgery. The patient understands and all questions were answered sufficiently. The patient wishes to proceed with procedure. Ulises Tee MD Pager: [facility] [address] [place] [address], [address] [place] [address] Office:
--- NOTE | 2018-02-25 08:00 | GASB_PTH ---
PATIENT: JULIANNA GARVEY LOC: EN U#:[id number] AGE/SX: 68/F ROOM: RE02/25/[address]: Dr. Ulises Tee MD : 1950 BED: DIS: 02/25/2018 SPEC #: [id number] RECD: 02/25/18 09:53 STATUS: JORDAN GIRALDO #: [id number] NIKUNJ: 02/25/18 08:[address]: Ulises Tee DEPT: SURGICAL PATHOLOGY RECD BY: Jitendra Zuniga ENTERED: 02/25/18 11:58 SP TYPE: Gastric Bx OTHR DR: Dr. Lawrence Fisher MD Tissues: Gastric mucous membrane Procedures: Surgery Specimen Level IV HEADER OPERATION: Colonoscopy, EGD ([facility] [place]) PRE-OP DIAGNOSIS: Duodenitis, sigmoid colon thickening TISSUE SUBMITTED: Antrum for H. pylori and path MICROSCOPIC DIAGNOSIS Antrum, biopsy: Mild gastritis. See microscopic description and comment. SJ:quirino 02/26/18 COMMENT The results of immunohistochemistry for Helicobacter pylori will be reported separately ([id number]). MICROSCOPIC DESCRIPTION Slides are reviewed. The specimen shows fragments of gastric mucosa with chronic inflammatory cell infiltrates in the lamina propria consisting of lymphocytes and plasma cells, consistent with mild chronic gastritis. GROSS DESCRIPTION Received in fixative is one container labeled with the patient's name and designated antrum biopsy for H. pylori. The specimen consists of two irregular fragments of light paulino soft tissue that in aggregate measure 0.5 x 0.2 x 0.1 cm. The specimen is totally submitted in one cassette. / SJ:quirino 02/25/18 TC:3 CPT: 18449
--- NOTE | 2018-02-25 08:00 | IMM_PTH ---
PATIENT: JULIANNA GARVEY LOC: EN U#:[id number] AGE/SX: 68/F ROOM: RE02/25/[address]: Dr. Ulises Tee MD : 1950 BED: DIS: 02/25/2018 SPEC #: [id number] RECD: 02/26/18 10:34 STATUS: JORDAN REJose #: [id number] NIKUNJ: 02/25/18 08:[address]: Ulises Tee DEPT: IMMUNOHISTOCHEMISTRY RECD BY: Hyacinth Padilla ENTERED: 02/26/18 10:34 SP TYPE: IMMUNO OTHR DR: Dr. Lawrence Fisher MD Tissues: Stomach, NOS Procedures: H Pylori (initial) PHYSICIAN & INSTITUTION [place] [id number] SPECIMEN INFORMATION: Tissue Source: Antrum biopsy Clinical Info: Duodenitis, sigmoid colon thickening Specimen Number: [id number] CPT code: 66969 METHODOLOGY: Deparaffinized sections of prefer/formalin-fixed tissue or PAP/DQ stained slides are incubated with monoclonal/polyclonal antibodies/oligonucleotide probes. Localization is made via biotin free immunoperoxidase method. Appropriate controls are performed and reacted as expected. Results on target cell population are indicated in the following table: RESULTS: ANTIBODY / CLONE RESULT H Pylori (polyclonal) negative These tests were developed and their performance characteristics determined by [facility]. They may not have been cleared or approved by the [place]. Food and Drug Administration. The FDA has determined that such clearance or approval is not necessary. INTERPRETATION: Antrum, biopsy: Negative for Helicobacter pylori organisms. ANU:quirino 02/26/18
[2018-02-25 08:25] VITALS: BP 115/93; BP 153/62; PULSE 95; RESP 14; TEMP 36.1; O2SAT 100
--- NOTE | 2018-02-25 08:26 | OP.ENDO_ITS ---
Patient Name: Swati Parada Procedure Date: 02/25/2018 7:48 AM Date of : 1950 Age: 68 Procedure: Upper GI endoscopy Indications: Follow-up of duodenitis Providers: Ulises Tee MD Referring MD: Ulises Tee MD Medicines: Monitored Anesthesia Care Patient Profile: This is a 68 year old female. Refer to note in patient chart for documentation of history and physical. Complications: No immediate complications. Estimated blood loss: Minimal. Procedure: Pre-Anesthesia Assessment: - Prior to the procedure, a History and Physical was performed, and patient medications and allergies were reviewed. The patient's tolerance of previous anesthesia was also reviewed. The risks and benefits of the procedure and the sedation options and risks were discussed with the patient. All questions were answered, and informed consent was obtained. Prior Anticoagulants: The patient has taken no previous anticoagulant or antiplatelet agents. After reviewing the risks and benefits, the patient was deemed in satisfactory condition to undergo the procedure. After obtaining informed consent, the endoscope was passed under direct vision. Throughout the procedure, the patient's blood pressure, pulse, and oxygen saturations were monitored continuously. The gastroscope was introduced through the mouth, and advanced to the second part of duodenum. The upper GI endoscopy was accomplished without difficulty. The patient tolerated the procedure well. Scope In: 7:55:11 AM Scope Out: 8:00:27 AM Total Procedure Duration Time 0 hours 5 minutes 16 seconds Findings: One non-bleeding duodenal ulcer with no stigmata of bleeding was found in the duodenal bulb. The rest of the duodenum showed significant improvement and resolution of duodenitis. The esophagus was normal. The stomach was normal. Biopsies were taken with a cold forceps in the gastric antrum for Helicobacter pylori testing. Impression: - One non-bleeding duodenal ulcer with no stigmata of bleeding. - Normal esophagus. - Normal stomach. - Biopsies were taken with a cold forceps for Helicobacter pylori testing. Recommendation: - Physician's office will call you with pathology results. - Patient has a contact number available for emergencies. The signs and symptoms of potential delayed complications were discussed with the patient. Return to normal activities tomorrow. Written discharge instructions were provided to the patient. - Resume previous diet. - Continue present medications. - Await pathology results. - No repeat upper endoscopy. - Use Prilosec (omeprazole) 20 mg PO daily for 2 months. Procedure Code(s): --- Professional --- 18825, Esophagogastroduodenoscopy, flexible, transoral; with biopsy, single or multiple Diagnosis Code(s): --- Professional --- K26.9, Duodenal ulcer, unspecified as acute or chronic, without hemorrhage or perforation K29.80, Duodenitis without bleeding CPT copyright 2017 [employer]. All rights reserved. The codes documented in this report are preliminary and upon gun fitter review may be revised to meet current compliance requirements. Ulises Tee MD 02/25/2018 8:25:54 AM This report has been signed electronically. Number of Addenda: 0 Note Initiated On: 02/25/2018 7:48 AM
[2018-02-25 08:30] VITALS: BP 126/59; BP 153/62; PULSE 91; RESP 16; O2SAT 100
--- NOTE | 2018-02-25 08:31 | OP.ENDO_ITS ---
Patient Name: Swati Parada Procedure Date: 02/25/2018 8:02 AM Date of : 1950 Age: 68 Procedure: Colonoscopy Indications: Abnormal CT of the GI tract, Thickening of sigmoid on CT Providers: Ulises Tee MD Referring MD: Ulises Tee MD Medicines: Monitored Anesthesia Care Patient Profile: This is a 68 year old female. Refer to note in patient chart for documentation of history and physical. Last Colonoscopy: none. The patient's first colonoscopy is today. Complications: No immediate complications. Procedure: Pre-Anesthesia Assessment: - Prior to the procedure, a History and Physical was performed, and patient medications and allergies were reviewed. The patient's tolerance of previous anesthesia was also reviewed. The risks and benefits of the procedure and the sedation options and risks were discussed with the patient. All questions were answered, and informed consent was obtained. Prior Anticoagulants: The patient has taken no previous anticoagulant or antiplatelet agents. After reviewing the risks and benefits, the patient was deemed in satisfactory condition to undergo the procedure. - Prior to the procedure, a History and Physical was performed, and patient medications and allergies were reviewed. The patient's tolerance of previous anesthesia was also reviewed. The risks and benefits of the procedure and the sedation options and risks were discussed with the patient. All questions were answered, and informed consent was obtained. Prior Anticoagulants: The patient has taken no previous anticoagulant or antiplatelet agents. After reviewing the risks and benefits, the patient was deemed in satisfactory condition to undergo the procedure. After I obtained informed consent, the scope was passed under direct vision. Throughout the procedure, the patient's blood pressure, pulse, and oxygen saturations were monitored continuously. The colonoscope was introduced through the anus and advanced to the cecum, identified by the appendiceal orifice, ileocecal valve and palpation. The colonoscopy was performed without difficulty. The patient tolerated the procedure well. The quality of the bowel preparation was good. Scope In: 8:03:07 AM Scope Withdrawal Time 0 hours 6 minutes 55 seconds Scope Out: 8:18:29 AM Total Procedure Duration Time 0 hours 15 minutes 22 seconds Findings: Multiple small-mouthed diverticula were found in the sigmoid colon and descending colon. The exam was otherwise without abnormality on direct and retroflexion views. Impression: - Diverticulosis in the sigmoid colon and in the descending colon. - The examination was otherwise normal on direct and retroflexion views. - No specimens collected. Recommendation: - Discharge patient to home. - Patient has a contact number available for emergencies. The signs and symptoms of potential delayed complications were discussed with the patient. Return to normal activities tomorrow. Written discharge instructions were provided to the patient. - Resume previous diet. - Continue present medications. - No repeat colonoscopy due to current age (66 years or older). Procedure Code(s): --- Professional --- 38748, Colonoscopy, flexible; diagnostic, including collection of specimen(s) by brushing or washing, when performed (separate procedure) Diagnosis Code(s): --- Professional --- K57.30, Diverticulosis of large intestine without perforation or abscess without bleeding R93.3, Abnormal findings on diagnostic imaging of other parts of digestive tract CPT copyright 2017 [employer]. All rights reserved. The codes documented in this report are preliminary and upon blender review may be revised to meet current compliance requirements. Ulises Tee MD 02/25/2018 8:31:17 AM This report has been signed electronically. Number of Addenda: 0 Note Initiated On: 02/25/2018 8:02 AM
[2018-02-25 08:35] VITALS: BP 126/95; BP 153/62; PULSE 89; RESP 16; O2SAT 98
[2018-02-25 08:40] VITALS: BP 130/55; BP 153/62; PULSE 95; RESP 16; TEMP 36.4; O2SAT 98
[2018-02-25 09:12] VITALS: BP 153/62
== END 2018-02-25 09:12 | disposition home or self-care (01) ==
LOC: EN 06:29 → AC 06:30
PROVIDERS: Family Provider Family Medicine; PCP Family Medicine; Referring Provider Surgery; Visit Provider Surgery
PROC: 0DJD8ZZ Inspection of Lower Intestinal Tract, Via Natural or Artificial Opening Endoscopic (ICD-10-PCS; CPT 45378; principal; 2018-02-25 07:55)
DX: K26.9 Duodenal ulcer, unspecified as acute or chronic, without hemorrhage or perforation (principal); K57.30 Diverticulosis of large intestine without perforation or abscess without bleeding; K29.70 Gastritis, unspecified, without bleeding; I10 Essential (primary) hypertension; E78.5 Hyperlipidemia, unspecified; I49.3 Ventricular premature depolarization; M06.9 Rheumatoid arthritis, unspecified; D51.0 Vitamin B12 deficiency anemia due to intrinsic factor deficiency; E11.40 Type 2 diabetes mellitus with diabetic neuropathy, unspecified; E11.319 Type 2 diabetes mellitus with unspecified diabetic retinopathy without macular edema; Z87.891 Personal history of nicotine dependence; Z79.4 Long term (current) use of insulin; Z79.82 Long term (current) use of aspirin; Z79.899 Other long term (current) drug therapy
CPT/HCPCS: 43239; 45378; 82962; 88305; 88342; J7120

== ENCOUNTER → 2018-03-03 13:37 | Outpatient (CLI) | payer MEDICARE, OTHER, SELFPAY ==
[2018-03-03 15:17] LABS: Absolute Lymphocyte Count 1.18 X10^3/ul (0.83-4.51); Absolute Neutrophil Count 4.2 X10^3/uL (2.0-7.7); Basophil# 0.02 X10^3/uL; Basophil% 0.3 % (0-1); Eosinophil# 0.16 X10^3/uL; Eosinophils% 2.6 % (0-5); Hematocrit 37.3 % (37-47); Hemoglobin 11.6 g/dl (12.0-15.0); Lymphocyte # 1.18 X10^3/ul (4.0); Lymphocyte % 19.3 % (19-41); Mean Corp Hgb Conc 31.1 g/gl (32-36); Mean Corpuscular Volume 96.4 fL (81-99); Mean Platelet Vol. 10.9 fl (6.2-12.0); Monocyte# 0.51 X10^3/uL; Monocyte% 8.3 % (0-10); Neutrophil # 4.21 X10^3/uL (2.7-7.7); Platelet Count 258 K/mm3 (150-450); RBC Distribution Width CV 15.3 % (11.6-14.6); RBC Distribution Width SD 52.1 fl (35.1-43.9); Red Blood Count 3.87 M/mm3 (4.2-5.4); White Blood Count 6.1 K/mm3 (4.4-11.0)
[2018-03-03 15:22] LABS: POSITIVE COUNT NO; POSITIVE DIFFERENTIAL NO; POSITIVE MORPHOLOGY NO
[2018-03-03 15:24] LABS: BUN 27 mg/dL (7-18); Creatinine, Serum 1.17 mg/dL (0.55-1.02); EST Glomerular Filtration Rate 49 mL/min (>60); Glucose 231 mg/dL (74-106)
[2018-03-03 15:25] LABS: ALB/GLOB Ratio 0.8 RATIO (0.9-2.4); AST(SGOT) 12 U/L (15-37); Alanine Aminotransfer ALT/SGPT 20 U/L (13-56); Albumin, Serum 3.3 g/dL (3.2-5.0); Alkaline Phosphatase 40 U/L (45-117); Anion Gap 10 (5-15); BUN/Creat Ratio 23.1 RATIO (10-20); Calcium,Total 8.9 mg/dL (8.5-10.1); Chloride 102 mmol/L (98-107); Est Glom Filt Rate - Afr Amer 59 mL/min (>60); Globulin 4.4 g/dL (2.2-4.2); Potassium 4.2 mmol/L (3.5-5.1); Protein, Total 7.7 g/dL (6.4-8.2); Sodium Level 140 mmol/L (136-145)
== END ==
PROVIDERS: Family Provider Family Medicine; PCP Family Medicine; Referring Provider Internal Medicine Rheumatology; Visit Provider Internal Medicine Rheumatology
DX: M06.4 Inflammatory polyarthropathy (principal); M17.0 Bilateral primary osteoarthritis of knee; M21.40 Flat foot [pes planus] (acquired), unspecified foot; M47.892 Other spondylosis, cervical region; M47.897 Other spondylosis, lumbosacral region; Z79.899 Other long term (current) drug therapy
CPT/HCPCS: 36415; 80053; 85025

== ENCOUNTER → 2018-07-28 16:29 | Outpatient (CLI) | payer MEDICARE, OTHER, SELFPAY | PROVIDERS: Family Provider Family Medicine; PCP Family Medicine; Referring Provider Family Medicine; Visit Provider Family Medicine | DX: R19.7 Diarrhea, unspecified (principal) | CPT/HCPCS: 87493; 87506 ==

== ENCOUNTER → 2018-09-08 | Outpatient (CLI) | payer MEDICARE, OTHER, SELFPAY ==
[2018-09-08 07:57] LABS: Hemoglobin A1c 7.5 % (4.2-6.3)
[2018-09-08 08:12] LABS: AST(SGOT) 17 U/L (15-37); Alanine Aminotransfer ALT/SGPT 17 U/L (13-56); Albumin, Serum 3.5 g/dL (3.2-5.0); Alkaline Phosphatase 35 U/L (45-117); Anion Gap 9 (5-15); BUN 46 mg/dL (7-18); BUN/Creat Ratio 31.9 RATIO (10-20); Bilirubin, Direct 0.08 mg/dL (0.00-0.30); Calcium,Total 9.2 mg/dL (8.5-10.1); Chloride 105 mmol/L (98-107); Cholesterol 160 mg/dL (200); Creatinine, Serum 1.44 mg/dL (0.55-1.02); EST Glomerular Filtration Rate 38 mL/min (>60); Est Glom Filt Rate - Afr Amer 47 mL/min (>60); Globulin 4.1 g/dL (2.2-4.2); Glucose 192 mg/dL (74-106); High Density Lipoprotein 45 mg/dL; Potassium 4.4 mmol/L (3.5-5.1); Protein, Total 7.6 g/dL (6.4-8.2); Sodium Level 141 mmol/L (136-145); Triglycerides 410 mg/dL
== END | disposition home or self-care (01) ==
LOC: LAB 06:20
PROVIDERS: Family Provider Family Medicine; PCP Family Medicine; Referring Provider Internal Medicine Cardiovascular Disease; Visit Provider Internal Medicine Cardiovascular Disease
DX: E11.9 Type 2 diabetes mellitus without complications (principal)
CPT/HCPCS: 36415; 80048; 80061; 80076; 82043; 82570; 83036

== ENCOUNTER → 2018-10-29 | Outpatient (CLI) | payer MEDICARE, OTHER, SELFPAY ==
[2018-09-10 16:14] VITALS: BMI 32.3
[2018-11-02 14:03] LABS: t-Transglutaminase IgA <2 U/mL (0-3)
== END | disposition home or self-care (01) ==
LOC: MTLAB 14:01
PROVIDERS: Family Provider Family Medicine; PCP Family Medicine
DX: K52.9 Noninfective gastroenteritis and colitis, unspecified (principal)
CPT/HCPCS: 36415; 83516

== ENCOUNTER 2019-01-23 08:01 | Day surgery (SDC) | payer MEDICARE, OTHER, SELFPAY ==
[2019-01-20 15:09] VITALS: BMI 32.3
[2019-01-23] VITALS (8 sets, daily range): BP systolic 85–134; BP diastolic 32–73; PULSE 76–81; RESP 18; TEMP 36.4–37; O2SAT 94–99; BMI 32.4
--- NOTE | 2019-01-23 08:17 | HP.PCM_ITS ---
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 300 unit/mL (1.5 mL) subcutaneous pen 65 unit SC DAILY 07/15/17 [History Confirmed 01/20/19] metformin 1,000 mg tablet 1,000 mg PO BID 07/15/17 [History Confirmed 01/20/19] duloxetine 60 mg capsule,delayed release 60 mg PO QDAY 09/11/17 [History Confirmed 01/20/19] fluticasone propionate 50 mcg/actuation nasal spray,suspension 2 spray INTRANASAL QDAY PRN 09/11/17 [History Confirmed 01/20/19] Alogliptin Jose Luis/Pioglitazone [Oseni 25-45 mg Tablet] 1 ea PO DAILY 12/24/17 [History Confirmed 01/20/19] Calcium Carbonate [Calcium] 600 mg PO BID 12/24/17 [History Confirmed 01/20/19] benazepril 20 mg tablet 10 mg PO QDAY tab 12/24/17 [History Confirmed 01/20/19] multivitamin tablet 1 tab PO BID tab 12/24/17 [History Confirmed 01/20/19] metoprolol tartrate 50 mg tablet 50 mg PO BID #180 tab 03/20/18 [Rx Confirmed 01/20/19] canagliflozin 100 mg tablet 100 mg PO DAILY 09/10/18 [History Confirmed 01/20/19] cetirizine 10 mg tablet 10 mg PO QDAY PRN tab 09/10/18 [History Confirmed 01/20/19] rosuvastatin 5 mg tablet 5 mg PO DAILY tab 09/10/18 [History Confirmed 01/20/19] [facility] Medical History Pure hypercholesterolemia (Chronic) Essential hypertension (Chronic) Rheumatoid arthritis (Acute) Acute kidney injury (Acute) Common bile duct obstruction (Acute) Diarrhea (Acute) Abnormal electrocardiogram [ECG] [EKG] (Chronic) Encounter for long-term current use of high risk medication (Chronic) Type 2 diabetes mellitus (Acute) Ventricular premature depolarization (Chronic) IBS (irritable bowel syndrome) (Acute) Pernicious anemia (Acute) Diabetic neuropathy (Chronic) Diabetic retinopathy (Chronic) Rheumatoid arthritis (Chronic) Hyperlipidemia (Inactive) Hypertension (Inactive) Surgical History (Updated 01/20/19 @ 15:06 by Nery Soto) History of colonoscopy (Acute ~02/25/18) History of cholecystectomy (Resolved) Family History Father CAD (coronary artery disease) Social History (Updated 01/20/19 @ 15:21 by Ulises Tee MD) Smoking Status: Former smoker alcohol intake: never substance use type: does not use diet: diabetic, low carbohydrate caffeine: Yes Type: coffee Number of servings: 1 what type of physical activity do you participate in: none seatbelt use: always do you feel safe at home: Yes HPI HPI HPI: JULIANNA GARVEY, is a 68 F who presents to the office today for HPI HPI Surgical H&P: Yes HPI: JULIANNA GARVEY, is a 68 F who presents to the office today for diarrhea. Patient reports that she has had diarrhea off and on for 20 years. She says that it has worsened since her cholecystectomy. She has tried cholestyramine with no effect. She says that she is unable to leave the house and she has debilitating diarrhea. She also has lower abdominal pain with diarrhea. She does not note any blood or inadvertent weight loss. She had a colonoscopy in 2018 which was normal. ROS General General: Yes fatigue; no weight change, appetite, colon cancer, breast cancer or weakness HEENT HEENT: No difficulty swallowing, eye injury, eye surgery, swollen glands or hoarseness Endo Endocrine: Yes diabetes mellitus; no thyroid disease, thyroid cancer, Hair loss, heat intolerance or cold intolerance Skin Skin: No rash or changing moles Breast Breast: No left breast lump, right breast lump, nipple discharge, breast pain, abnormal mammogram, abnormal US or breast enlargement Musc Musculoskeletal: Yes back problems, arthritis and rheumatoid arthritis; no gout or joint pain Cardio Cardiovascular: Yes murmur and heart disease; no pacemaker, atrial fibrillation, high blood pressure, heart attack, heart stent, palpitations, shortness of breat with exertion or chest pain Psych Psychiatric: No depression, anxiety or hearing voices Resp Respiratory: No shortness of breath, No sleep apnea, No cough, No COPD, No asthma, No emphysema, No wheezing Gastro Gastrointestinal: Yes abdominal pain, No nausea or vomiting, Yes diarrhea, No constipation, No blood in stool, Yes acid reflux, No hemorrhoids, No ulcers, No gallbladder problem, No black,tarry stools Nirav Hematologic: No blood thinners, No blood disorders, No bleeding, Yes anemia, No blood clots Neuro Neurologic: No system reviewed and no additional complaints, except as docu, No as per HPI, No abnormal walking, No abnormal hearing, No abnormal movements, No abnormal speech, No behavioral changes, No burning sensations, No confusion, No seizure-like activity, No unsteadiness, No dizziness, No localized weakness, No frequent falls, No headache(s), No lack of coordination, No loss of vision, No memory loss, Yes numbness, No other visual disturbances, No radiating pain, No restless legs, No sensory deficit, No fainting, Yes tingling, No tremor(s), No weakness, No other Exam Const General: cooperative Orientation: alert, oriented x3 Chest Breast Palpation: No nipple discharge Resp Effort & Inspection: normal respiratory effort Auscultation: clear to auscultation bilaterally Cardio Rate: regular rate Rhythm: regular rhythm Heart Sounds: murmur GI Inspection: non-distended Palpation: soft, nontender Assessment & Plan Problems 1. Diarrhea, unspecified type R19.7 Plan The patient has diarrhea which is non-remitting. The patient reports that this is frequent with lower abdominal pain. The patient saw veterinary livestock inspector which recommends colonoscopy with random biopsies to check for microscopic colitis. I explained endoscopy in detail to the patient. I explained the risks including but not limited to stroke or heart attack with anesthesia, perforation of the GI tract, bleeding, infection. I explained that any of these could necessitate further emergency surgery. The patient understands and all questions were answered sufficiently. The patient wishes to proceed with procedure. Ulises Tee MD Pager: [facility] [address] [place] [address] [address] [place] [address] Office:
[2019-01-23 08:36] LABS: Bedside Glucose 151 mg/dL (70-110)
[2019-01-23] MEDS: Lactated Ringers 1,000 ML 100 ML IV (08:45)
--- NOTE | 2019-01-23 09:00 | COLBX_PTH ---
PATIENT: JULIANNA GARVEY LOC: EN U#:[id number] AGE/SX: 68/F ROOM: RE01/23/[address]: Dr. Ulises Tee MD : 1950 BED: DIS: 01/23/2019 SPEC #: [id number] RECD: 01/23/19 10:51 STATUS: JORDAN KRISTAL #: [id number] NIKUNJ: 01/23/19 09:[address]: Ulises Tee DEPT: SURGICAL PATHOLOGY RECD BY: Panchito Kerr ENTERED: 01/23/19 13:04 SP TYPE: COLON BX OTHR DR: MD Lawrence Sanchez Tissues: COLON BIOPSY Procedures: Surgery Specimen Level IV HEADER OPERATION: Colonoscopy (MAC) PRE-OP DIAGNOSIS: Diarrhea TISSUE SUBMITTED: Random colon biopsies MICROSCOPIC DIAGNOSIS Colon, random biopsy: No pathologic diagnosis. AM:quirino 01/26/19 MICROSCOPIC DESCRIPTION Slides are reviewed. GROSS DESCRIPTION Received in fixative is one container labeled with the patient's name and designated random colon biopsy. The specimen consists of multiple irregular fragments of light paulino soft tissue that in aggregate measure 2.5 x 1 x 0.1 cm. The specimen is totally submitted in one cassette. / SJ:quirino 01/23/19 TC:5 CPT: 85434
--- NOTE | 2019-01-23 09:59 | OP.ENDO_ITS ---
01/23/2019 Lawrence Fisher MD [address] [id number] Re : Colonoscopy procedure for Swati Parada Dear Dr. Fisher This procedure was performed on Wednesday, January 23, 2019. My impressions and recommendations are as follows: Impressions : - The entire examined colon is normal on direct and retroflexion views. - Biopsies were taken with a cold forceps from the entire colon for evaluation of microscopic colitis. Recommendations : - Discharge patient to home. - Resume previous diet. - Continue present medications. - Await pathology results. - Repeat colonoscopy in 10 years for screening purposes. My findings are described in the full procedure note, which is enclosed. If I can be of further assistance, please feel free to contact me at Doctor phone number(s): , Work: . Sincerely, Ulises Tee MD 01/23/2019 9:59:02 AM This report has been signed electronically.
== END 2019-01-23 10:45 | disposition home or self-care (01) ==
LOC: EN 08:01 → AC 08:02
PROVIDERS: Family Provider Family Medicine; PCP Family Medicine; Referring Provider Family Medicine; Visit Provider Surgery
PROC: 0DJD8ZZ Inspection of Lower Intestinal Tract, Via Natural or Artificial Opening Endoscopic (ICD-10-PCS; CPT 45378; principal; 2019-01-23 08:55)
DX: K58.0 Irritable bowel syndrome with diarrhea (principal); E78.00 Pure hypercholesterolemia, unspecified; I10 Essential (primary) hypertension; M06.9 Rheumatoid arthritis, unspecified; E11.40 Type 2 diabetes mellitus with diabetic neuropathy, unspecified; D51.0 Vitamin B12 deficiency anemia due to intrinsic factor deficiency; E11.319 Type 2 diabetes mellitus with unspecified diabetic retinopathy without macular edema; Z87.891 Personal history of nicotine dependence; Z79.82 Long term (current) use of aspirin; Z79.4 Long term (current) use of insulin; Z79.899 Other long term (current) drug therapy
CPT/HCPCS: 45380; 82962; 88305; J7120; J2405

== ENCOUNTER → 2019-04-06 10:11 | Outpatient (CLI) | payer MEDICARE, OTHER, SELFPAY ==
[2019-01-23 08:21] VITALS: BMI 32.4
--- NOTE | 2019-04-06 10:16 | RAD_ITS ---
STUDY: X-RAY - RIGHT WRIST REASON FOR EXAM: Female, 69 years old. Pain following a fall. TECHNIQUE: 3 view(s) of the wrist were obtained. COMPARISON: None. FINDINGS: Comminuted nondisplaced fracture of the distal radial metaphysis with extension to the articular surface. Avulsion fracture of the ulnar styloid. Calcification of the triangular fibrocartilage. Normal radiocarpal articulation. Normal distal radioulnar articulation. Avulsion fracture of the triquetrum. Normal carpal articulations. There is degenerative arthrosis of the carpometacarpal articulation of the thumb. Normal second through fifth carpometacarpal articulations. Normal visualized metacarpal bones. Soft tissue swelling. RAD/Wrist min 3 Views IMPRESSION: Nondisplaced comminuted fracture of the distal radial metaphysis with extension of the articular surface as well as avulsion fracture of the ulnar styloid. Avulsion fracture of the triquetrum. Soft tissue swelling. Electronically Signed: Ariel Kirkpatrick, at 11:01 EST , Service support ,
== END ==
PROVIDERS: Family Provider Family Medicine; PCP Family Medicine; Referring Provider Family Medicine; Visit Provider Family Medicine
DX: M25.531 Pain in right wrist (principal)
CPT/HCPCS: 73110

== ENCOUNTER → 2019-04-13 10:51 | Outpatient (CLI) | payer MEDICARE, OTHER, SELFPAY ==
[2019-04-06 13:25] VITALS: BMI 32.4
--- NOTE | 2019-04-13 10:51 | RAD_ITS ---
STUDY: X-RAY - RIGHT WRIST REASON FOR EXAM: Fall, follow-up fracture. TECHNIQUE: 3 view(s) of the wrist were obtained. COMPARISON: Radiographs 04/06/2019. FINDINGS: There is no interval change of the mildly impacted fracture of the distal radius and ulnar styloid process avulsion. Normal radiocarpal articulation. Normal distal radioulnar articulation. Normal carpal bones. Normal carpal articulations. There are marginal osteophytes and joint space narrowing of the carpometacarpal articulation of the thumb. Normal second through fifth carpometacarpal articulations. Normal visualized metacarpal bones. There are small calcifications at the dorsal aspect of the wrist. There is chondrocalcinosis. There is soft tissue swelling. RAD/Wrist min 3 Views IMPRESSION: No interval change of distal radial fracture and ulnar styloid process avulsion. Arthrosis of the first carpometacarpal joint. Small calcifications of the dorsal aspect of the wrist. Electronically Signed: Grant Hutchison MD at 14:08 EST Tel , Service support ,
== END ==
PROVIDERS: Family Provider Family Medicine; PCP Family Medicine; Referring Provider Orthopaedic Surgery; Visit Provider Orthopaedic Surgery
DX: S52.351A Displaced comminuted fracture of shaft of radius, right arm, initial encounter for closed fracture (principal)
CPT/HCPCS: 73110

== ENCOUNTER 2019-06-03 11:00 | Outpatient (RCR) | payer MEDICARE, OTHER, SELFPAY ==
[2019-04-13 10:58] VITALS: BMI 32.4
--- NOTE | 2019-05-20 09:46 | HP.OTEVAL_ITS ---
Patient's Visit Information JULIANNA GARVEY is a 69 year old F, referred to Occupational Therapy by CAROL LOPEZ, with a diagnosis of right intraarticular fx of lower end radius. Date of Evaluation: 05/18/19 Occupational Therapist: Sofi Thomason, OTR/Zurdo, CHT - Subjective Subjective: This 69 year old female was seen in OT with dx of right wrist intraarticular fx of lower end radisu. Pt had fall on Apr.05 fall over her dog- pt went to primary and then was refered to dr at [facility] Wed. sx of ORIF-pt is right handed- pt states she continues to struggle with ROM and pain. States she is limited with ADLs and IADLs. Pt would like to gain ROM and strength to return to PLOF. 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 Pt will demo an increase in lateral and tripod pinch by 2# to increase pts independent with opening baggies, containers at PLOF by D/C. Goal:: Pt will demo an increase in wrist ROM equal to unaffected wrist to return pt to PLOF with grooming, dressing and home mtg tasks by D/C. Goal:: Pt will report pain no greater than 1/10 with use of affected hand with BADLs and IADLs by d/c. Goal:: Pt will demo understanding of scar mtg. by end of 2nd session to increase tissue extensibility to limit scar adhesions and allow full tendons function by d/c. - Rehabilitation General Assessment: pt is 3 weeks s/p ORIF of right wrist fx. pt is demo with limted ROM and strength increasing pts need of assist with ADLs and IADLS. Pt would benefit from skilled OT services 1x week for 5 weeks to return pt to PLOF. Today pt was ed. on AROM, AAROM and PROM ex, scar mtg and desensitization. pt demo understanding and was given handout and agree to POC. Rehabilitation Potential: Good - Anticipated Interventions Anticipated Interventions: A/AAROM/PROM, Strengthening, Desensitization, Modalities, Orthoses, Joint Protection/Energy Conservation - Visit Plan Frequency: 1x/Week Duration: 5 weeks TEXT: Thank you for the opportunity to evaluate your patient. For Medicare and Medicare HMO plans, please review the plan of care and approve it. It will need to be FAXED BACK to us at [phone] for Medicare purposes. Please let me know if there are questions or concerns regarding this plan of care. Physician Signature:_ Date:
--- NOTE | 2019-06-05 12:42 | OTREVAL_ITS ---
CAROL LOPEZ, It has been my pleasure to treat JULIANNA GARVEY over the last 2 visits for right intraarticular fx of lower end radius. Please see the progress note below for an update on the occupational therapy plan of care! Subjective: pt arrives to session states she is struggleing with head cold- feels she is getting better. States she is using her arm for ADls and IADLS without a problem. Objective/Function: right supervisor coil springs strength 25# a increase from 10#. right lateral pinch 8#. right forearm ROM WNL. right wrist 50/45. pt has made great gains with her ROM and use of right UE for ADLs and IADLS. Plan Frequency: 1x/Week Duration: 5 weeks Plan: cont with PRE as pt chiqui. Goals - Goals Goal:: PT will demo an increase in supervisor coil springs strength by 20# to increase independent with basic occupations of daily living to return pt to PLOF by D/C. Pt will demo an increase in lateral and tripod pinch by 2# to increase pts independent with opening baggies, containers at PLOF by D/C. Goal:: Pt will demo an increase in wrist ROM equal to unaffected wrist to return pt to PLOF with grooming, dressing and home mtg tasks by D/C. Goal:: Pt will report pain no greater than 1/10 with use of affected hand with BADLs and IADLs by d/c. Goal:: Pt will demo understanding of scar mtg. by end of 2nd session to increase tissue extensibility to limit scar adhesions and allow full tendons function by d/c. Anticipated Interventions Anticipated Interventions: A/AAROM/PROM, Strengthening, Desensitization, Modalities, Orthoses, Joint Protection/Energy Conservation Please do not hesitate to contact me at [phone] by phone or if you have questions or concerns regarding this new plan of care! Sincerely, Sofi Thomason, OTR/L, CHT
--- NOTE | 2019-09-22 15:33 | HP.OT.NRP ---
JULIANNA GARVEY was seen in my office for initial evaluation on 05/18/19. The following Plan of Care was established for this patient: Initial Frequency: 1x/Week Initial Duration: 5 weeks Plan: cont with PRE as pt chiqui. Anticipated Interventions: A/AAROM/PROM, Strengthening, Desensitization, Modalities, Orthoses, Joint Protection/Energy Conservation This patient was last seen in our office 06/03/19. Pertinent comments regarding their Occupational therapy will appear below: PT was seen for OT eval and one following therapy session. Pt was seen with dx of right intraarticular fx of lower end radius. Pt cancelled 2 session and atteded 1. Due to time lapse in skilled therapy services pt d/c at this time. At this point I will be discontinuing this patient from occupational therapy. I would be happy to see this patient again in the future if found appropriate by the physician. Thank you! Sofi Thomason, OTR/L, CHT
== END 2019-06-03 19:00 | disposition home or self-care (01) ==
LOC: OT 11:00
PROVIDERS: Family Provider Family Medicine; PCP Family Medicine
DX: S52.579 Other intraarticular fracture of lower end of unspecified radius (principal)
CPT/HCPCS: 97110; 97140; 97166

== ENCOUNTER → 2020-06-15 11:33 | Outpatient (CLI) | payer MEDICARE, OTHER, SELFPAY ==
[2019-09-16 16:09] VITALS: BMI 33.3
[2020-06-15 15:51] LABS: Anion Gap 8 (5-15); BUN 28 mg/dL (7-18); BUN/Creat Ratio 28.8 RATIO (10-20); Calcium,Total 9.5 mg/dL (8.5-10.1); Chloride 106 mmol/L (98-107); Cholesterol 105 mg/dL (200); Creatinine, Serum 0.97 mg/dL (0.55-1.02); EST Glomerular Filtration Rate 60 mL/min (>60); Est Glom Filt Rate - Afr Amer 73 mL/min (>60); Glucose 64 mg/dL (74-106); High Density Lipoprotein 60 mg/dL; Potassium 3.9 mmol/L (3.5-5.1); Sodium Level 140 mmol/L (136-145); Triglycerides 106 mg/dL; Very Low Density Lipoprotein 21 mg/dL (5-40)
== END ==
PROVIDERS: PCP Family Medicine; Referring Provider Family Medicine; Visit Provider Family Medicine
DX: E11.40 Type 2 diabetes mellitus with diabetic neuropathy, unspecified (principal)
CPT/HCPCS: 36415; 80048; 80061

== ENCOUNTER 2020-07-07 16:03 | Outpatient (RCR) | payer MEDICARE, OTHER, SELFPAY ==
[2019-09-16 16:09] VITALS: BMI 33.3
[2020-07-07] MEDS: COVID-19 VACC, MRNA(PFIZER)/PF 30 MCG/0.3 ML SYRINGE IM (14:52)
[2020-07-28] MEDS: COVID-19 VACC, MRNA(PFIZER)/PF 30 MCG/0.3 ML SYRINGE IM (09:15)
== END 2020-10-11 23:59 ==
LOC: IMMUN 16:03
PROVIDERS: PCP Family Medicine; Visit Provider Family Medicine
DX: Z23 Encounter for immunization (principal)
CPT/HCPCS: 0001A; 0002A; 91300

== ENCOUNTER 2020-07-15 22:36 | Inpatient (IN) | payer MEDICARE, OTHER, SELFPAY ==
[2019-09-16 16:09] VITALS: BMI 33.3
[2020-07-15 22:42] VITALS: BP 161/66; PULSE 101; RESP 18; TEMP 37.3; O2SAT 95; O2SAT 98; BMI 32.5
[2020-07-15 22:56] LABS: Bedside Glucose 278 mg/dL (70-110)
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
[2020-07-16] MEDS: oxyCODONE 5 MG Tablet PO ×4 (00:03→21:31)
[2020-07-16 06:23] VITALS: BP 156/75; PULSE 96; RESP 18; TEMP 36.7; O2SAT 95
[2020-07-16 06:26] LABS: Bedside Glucose 242 mg/dL (70-110)
[2020-07-16] MEDS: Lidocaine 5% Patch 2 PATCH TOPICAL (06:26)
[2020-07-16 06:28] VITALS: BP 156/75; PULSE 96
[2020-07-16] MEDS: Metoprolol Tartrate 50 MG Tablet PO ×2 (06:28→18:02)
[2020-07-16] MEDS: Docusate Sodium 100 MG Capsule PO (06:28)
[2020-07-16] MEDS: DULoxetine Hcl 60 MG Capsule PO (06:28)
[2020-07-16] MEDS: Polyethylene Glycol 3350 17 GM PACKET PO (06:29)
[2020-07-16] MEDS: Methocarbamol 500 MG Tablet 1000 MG PO ×3 (06:29→21:32)
[2020-07-16] MEDS: Enoxaparin 30 MG/0.3 ML Syringe SC (06:29)
[2020-07-16] MEDS: Senna Tablet 2 TABLET PO ×2 (06:30→18:01)
[2020-07-16 07:09] VITALS: PULSE 100; RESP 16
[2020-07-16] MEDS: Ipratropium/Albuterol Sulfate 3 ML AMPUL.NEB INHALATION (07:09)
[2020-07-16 07:15] LABS: Absolute Lymphocyte Count 0.88 X10^3/uL (0.83-4.51); Absolute Neutrophil Count 4.6 X10^3/uL (2.0-7.7); Basophil# 0.05 X10^3/uL; Basophil% 0.8 % (0-1); Eosinophil# 0.32 X10^3/uL; Eosinophils% 4.8 % (0-5); Hematocrit 28.8 % (37-47); Hemoglobin 8.9 g/dL (12.0-15.0); Lymphocyte # 0.88 X10^3/ul (4.0); Lymphocyte % 13.2 % (19-41); Mean Corp Hgb Conc 30.9 g/dL (32-36); Mean Corpuscular Hgb 29.1 pg (27.0-32.0); Mean Corpuscular Volume 94.1 fL (81-99); Mean Platelet Vol. 10.2 fl (6.2-12.0); Monocyte# 0.65 X10^3/uL; Monocyte% 9.8 % (0-10); NRBC Flagged by Analyzer 0 % (0-5); Neutrophil # 4.56 X10^3/uL (2.7-7.7); Neutrophil % 68.4 % (47-70); Platelet Count 201 K/mm3 (150-450); RBC Distribution Width CV 15.4 % (11.6-14.6); RBC Distribution Width SD 53.1 fl (35.1-43.9); Red Blood Count 3.06 M/mm3 (4.2-5.4); White Blood Count 6.7 K/mm3 (4.4-11.0)
[2020-07-16 07:38] LABS: Anion Gap 6 (5-15); BUN 26 mg/dL (7-18); BUN/Creat Ratio 34.5 RATIO (10-20); Calcium,Total 8.9 mg/dL (8.5-10.1); Chloride 102 mmol/L (98-107); Creatinine, Serum 0.75 mg/dL (0.55-1.02); EST Glomerular Filtration Rate 81 mL/min (>60); Est Glom Filt Rate - Afr Amer 98 mL/min (>60); Estimated Creatinine Clearance 54.71 ml/min; Glucose 260 mg/dL (74-106); Potassium 4.3 mmol/L (3.5-5.1); Sodium Level 138 mmol/L (136-145)
[2020-07-16] MEDS: metFORMIN HCl 1,000 MG Tablet 1000 MG PO ×2 (08:25→18:00)
[2020-07-16] MEDS: Aspirin E.C. 81 MG Tablet PO (08:25)
[2020-07-16] MEDS: Gabapentin 100 MG Capsule PO ×3 (08:25→18:00)
[2020-07-16 10:00] VITALS: PULSE 84; O2SAT 97
[2020-07-16] MEDS: Iron Polysaccharide Complex 150 MG CAPSULE PO (10:16)
[2020-07-16] MEDS: Tuberculin,Purif.prot.deriv. 50 TU/ML Vial 5 ML ID (10:17)
[2020-07-16 10:21] LABS: Bedside Glucose 277 mg/dL (70-110)
[2020-07-16] MEDS: Acetaminophen 500 MG Tablet 1000 MG PO ×2 (10:21→21:41)
[2020-07-16] MEDS: Insulin Lispro 100 UNIT/ML INSULN.PEN SC ×2 (12:00→18:00)
[2020-07-16 13:31] VITALS: BP 130/68; PULSE 83; RESP 16; TEMP 36.5; O2SAT 96
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
[2020-07-16 16:30] LABS: Bedside Glucose 256 mg/dL (70-110)
[2020-07-16 18:02] VITALS: PULSE 83
[2020-07-16] MEDS: Bisacodyl 5 MG Tablet 10 MG PO (18:05)
[2020-07-16] MEDS: MELATONIN 3 MG TABLET PO (21:32)
[2020-07-16] MEDS: Atorvastatin Calcium 10 MG Tablet PO (21:32)
[2020-07-16] MEDS: amLODIPine 5 MG Tablet PO (21:32)
--- NOTE | 2020-07-16 21:46 | NURSING ---
Patient requested to refuse 23:00 hr breathing treatment. RT aware.
[2020-07-16 21:50] LABS: Bedside Glucose 218 mg/dL (70-110)
[2020-07-17 06:21] LABS: Bedside Glucose 192 mg/dL (70-110)
[2020-07-17] MEDS: Gabapentin 100 MG Capsule PO ×3 (07:29→17:03)
[2020-07-17] MEDS: Methocarbamol 500 MG Tablet 1000 MG PO ×3 (07:29→21:05)
[2020-07-17] MEDS: Iron Polysaccharide Complex 150 MG CAPSULE PO (07:30)
[2020-07-17] MEDS: metFORMIN HCl 1,000 MG Tablet 1000 MG PO ×2 (07:30→17:03)
[2020-07-17] MEDS: Polyethylene Glycol 3350 17 GM PACKET PO (07:31)
[2020-07-17] MEDS: Enoxaparin 40 MG/0.4 ML Syringe SC (07:33)
[2020-07-17] MEDS: DULoxetine Hcl 60 MG Capsule PO (07:33)
[2020-07-17] MEDS: Aspirin E.C. 81 MG Tablet PO (07:33)
[2020-07-17] MEDS: Lidocaine 5% Patch 2 PATCH TOPICAL (07:34)
[2020-07-17] MEDS: Senna Tablet 2 TABLET PO ×2 (07:34→17:10)
[2020-07-17 07:36] VITALS: PULSE 83
[2020-07-17] MEDS: Metoprolol Tartrate 50 MG Tablet PO ×2 (07:36→17:06)
[2020-07-17] MEDS: Insulin Lispro 100 UNIT/ML INSULN.PEN 10 UNIT SC (07:37)
[2020-07-17] MEDS: Ipratropium/Albuterol Sulfate 3 ML AMPUL.NEB INHALATION (07:40)
[2020-07-17 07:42] VITALS: PULSE 91; RESP 19
[2020-07-17] MEDS: Magnesium Hydroxide 30 ML UDC PO (10:07)
[2020-07-17] MEDS: Acetaminophen 500 MG Tablet 1000 MG PO (10:07)
[2020-07-17 10:56] LABS: Bedside Glucose 197 mg/dL (70-110)
--- NOTE | 2020-07-17 11:27 | RAD_ITS ---
STUDY: X-RAY - ABDOMEN/PELVIS REASON FOR EXAM: Female, 70 years old. Constipation TECHNIQUE: Single AP view of the abdomen / pelvis. COMPARISON: None. FINDINGS: Normal visualized lung bases. There is an unremarkable bowel gas pattern. The visualized liver, spleen and kidneys are grossly normal in size and morphology. Normal soft tissue structures. Normal visualized osseous structures. RAD/Abdomen Single View (Portable) IMPRESSION: Normal x-ray examination of the abdomen and pelvis. Electronically Signed: Jitendra Garza MD at 13:30 EDT Tel , Service support ,
[2020-07-17] MEDS: Ondansetron ODT 4 MG Tablet PO (11:47)
--- NOTE | 2020-07-17 13:06 | NURSING ---
Addendum entered by Renea Laughlin 07/17/20 17:38: Pt still refusing SSE stating she doesn't need it now. Rn updated Original Note: pt refused lunch, humalog held. C/O nausea zofran given, KUB, SSE ordered per pt request for constipation. Milk of mag given this morning, pt wishes to hold off on SSE at this time because she is starting to have bowel movements, two medium noted so far.
[2020-07-17 13:27] VITALS: BP 147/65; PULSE 85; RESP 17; TEMP 36.8; O2SAT 92
[2020-07-17 16:16] LABS: Bedside Glucose 185 mg/dL (70-110)
[2020-07-17 17:06] VITALS: PULSE 85
[2020-07-17] MEDS: oxyCODONE 5 MG Tablet PO ×2 (17:10→21:05)
[2020-07-17 17:15] VITALS: BP 144/68; PULSE 94; RESP 16; TEMP 36.6; O2SAT 92
[2020-07-17 20:40] VITALS: PULSE 80; RESP 16
[2020-07-17] MEDS: Atorvastatin Calcium 10 MG Tablet PO (21:05)
[2020-07-17] MEDS: amLODIPine 5 MG Tablet PO (21:05)
[2020-07-17] MEDS: MELATONIN 3 MG TABLET PO (21:05)
[2020-07-17 21:41] LABS: Bedside Glucose 228 mg/dL (70-110)
[2020-07-18] VITALS (8 sets, daily range): BP systolic 133–145; BP diastolic 48–67; PULSE 75–87; RESP 16–18; TEMP 36.4; O2SAT 94–95
[2020-07-18] MEDS: oxyCODONE 5 MG Tablet PO ×3 (02:57→17:53)
[2020-07-18] MEDS: Aspirin E.C. 81 MG Tablet PO (06:19)
[2020-07-18] MEDS: Methocarbamol 500 MG Tablet 1000 MG PO ×3 (06:19→22:29)
[2020-07-18] MEDS: DULoxetine Hcl 60 MG Capsule PO (06:19)
[2020-07-18] MEDS: Enoxaparin 40 MG/0.4 ML Syringe SC (06:20)
[2020-07-18] MEDS: Metoprolol Tartrate 50 MG Tablet PO ×2 (06:20→17:49)
[2020-07-18 06:21] LABS: Bedside Glucose 168 mg/dL (70-110)
[2020-07-18] MEDS: Acetaminophen 500 MG Tablet 1000 MG PO ×3 (06:24→22:30)
[2020-07-18] MEDS: Insulin Lispro 100 UNIT/ML INSULN.PEN 10 UNIT SC ×3 (08:21→17:39)
[2020-07-18] MEDS: metFORMIN HCl 1,000 MG Tablet 1000 MG PO ×2 (08:21→17:48)
[2020-07-18] MEDS: Iron Polysaccharide Complex 150 MG CAPSULE PO (08:21)
[2020-07-18] MEDS: Gabapentin 100 MG Capsule PO ×3 (08:22→17:48)
[2020-07-18] MEDS: Cyanocobalamin (B12) 1,000 MCG/ML Vial 1000 MCG IM (09:08)
[2020-07-18] MEDS: Lidocaine 5% Patch 2 PATCH TOPICAL (10:04)
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
[2020-07-18 11:30] LABS: Bedside Glucose 120 mg/dL (70-110)
[2020-07-18 16:26] LABS: Bedside Glucose 111 mg/dL (70-110)
--- NOTE | 2020-07-18 16:32 | NURSING ---
called and updated on pt.
--- NOTE | 2020-07-18 16:47 | CASEMGMT ---
Social Work Met with patient for initial assessment. Discussed code status with pt. Pt wishes to be DNR-CCA, no intubation. Nursing notified. MOLST form reviewed, communication to , placed in chart. Pt does not have advanced directives but agreed to complete prior to DC. Explained Medicare benefit and encouraged to contact secondary to ensure copay coverage. The goal is for pt to return home with and PLOF with no AD. Will continue to follow. Lakshmi Lugo MSW MARKETING COORDINATOR
[2020-07-18] MEDS: Senna Tablet 2 TABLET PO (17:50)
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
[2020-07-18 21:26] LABS: Bedside Glucose 132 mg/dL (70-110)
[2020-07-18] MEDS: Atorvastatin Calcium 10 MG Tablet PO (22:29)
[2020-07-18] MEDS: MELATONIN 3 MG TABLET PO (22:31)
[2020-07-18] MEDS: amLODIPine 5 MG Tablet PO (22:31)
[2020-07-19 05:00] VITALS: BP 158/70; PULSE 81; RESP 14; TEMP 36.4; O2SAT 93
[2020-07-19] MEDS: Acetaminophen 500 MG Tablet 1000 MG PO ×3 (06:09→22:37)
[2020-07-19] MEDS: DULoxetine Hcl 60 MG Capsule PO (06:09)
[2020-07-19] MEDS: Methocarbamol 500 MG Tablet 1000 MG PO ×3 (06:10→22:36)
[2020-07-19] MEDS: Aspirin E.C. 81 MG Tablet PO (06:10)
[2020-07-19 06:11] VITALS: PULSE 84
[2020-07-19] MEDS: Metoprolol Tartrate 50 MG Tablet PO ×2 (06:11→17:46)
[2020-07-19] MEDS: Enoxaparin 40 MG/0.4 ML Syringe SC (06:11)
[2020-07-19] MEDS: Polyethylene Glycol 3350 17 GM PACKET PO (06:12)
[2020-07-19] MEDS: Senna Tablet 2 TABLET PO (06:13)
[2020-07-19 06:21] LABS: Bedside Glucose 127 mg/dL (70-110)
[2020-07-19 07:15] VITALS: O2SAT 95
[2020-07-19] MEDS: Insulin Lispro 100 UNIT/ML INSULN.PEN 10 UNIT SC ×3 (08:03→17:43)
[2020-07-19] MEDS: metFORMIN HCl 1,000 MG Tablet 1000 MG PO ×2 (08:05→17:45)
[2020-07-19] MEDS: Iron Polysaccharide Complex 150 MG CAPSULE PO (08:05)
[2020-07-19] MEDS: Gabapentin 100 MG Capsule PO ×3 (08:05→17:45)
[2020-07-19] MEDS: oxyCODONE 5 MG Tablet PO ×4 (08:10→22:34)
[2020-07-19] MEDS: Lidocaine 5% Patch 2 PATCH TOPICAL (09:06)
[2020-07-19 11:15] LABS: Bedside Glucose 132 mg/dL (70-110)
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
[2020-07-19 13:46] VITALS: BP 137/77; PULSE 79; RESP 16; TEMP 36.3; O2SAT 93
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
--- NOTE | 2020-07-19 14:30 | CASEMGMT ---
Social Work Completed HCPOA and LW paperwork. Pt named , Richie as primary and on, Misha, as secondary POA. Copies placed on chart. Lakshmi Lugo, [employer] [address] [employer]INE [employer]
--- NOTE | 2020-07-19 14:46 | NURSING ---
Dr Preciado saw here and no intervention at this time. pt to f/u after DC if still continues to have hearing/tinnitus issues.
[2020-07-19 16:31] LABS: Bedside Glucose 118 mg/dL (70-110)
[2020-07-19 17:46] VITALS: BP 137/77; PULSE 79
[2020-07-19 21:50] LABS: Bedside Glucose 87 mg/dL (70-110)
[2020-07-19] MEDS: amLODIPine 5 MG Tablet PO (22:36)
[2020-07-19] MEDS: MELATONIN 3 MG TABLET PO (22:36)
[2020-07-19] MEDS: Atorvastatin Calcium 10 MG Tablet PO (22:36)
[2020-07-19 22:51] VITALS: PULSE 80; RESP 18; O2SAT 90
[2020-07-20 05:00] VITALS: BP 159/82; PULSE 78; RESP 16; TEMP 37.1; O2SAT 90
[2020-07-20] MEDS: Enoxaparin 40 MG/0.4 ML Syringe SC (06:12)
[2020-07-20] MEDS: Acetaminophen 500 MG Tablet 1000 MG PO ×3 (06:12→22:24)
[2020-07-20] MEDS: Methocarbamol 500 MG Tablet 1000 MG PO ×3 (06:12→22:24)
[2020-07-20 06:13] VITALS: BP 159/82; PULSE 78
[2020-07-20] MEDS: Metoprolol Tartrate 50 MG Tablet PO ×2 (06:13→17:30)
[2020-07-20] MEDS: DULoxetine Hcl 60 MG Capsule PO (06:13)
[2020-07-20] MEDS: Aspirin E.C. 81 MG Tablet PO (06:13)
[2020-07-20 06:25] LABS: Bedside Glucose 132 mg/dL (70-110)
[2020-07-20] MEDS: Insulin Lispro 100 UNIT/ML INSULN.PEN 10 UNIT SC ×2 (08:15→11:28)
[2020-07-20] MEDS: Iron Polysaccharide Complex 150 MG CAPSULE PO (08:16)
[2020-07-20] MEDS: Gabapentin 100 MG Capsule PO ×3 (08:16→17:28)
[2020-07-20] MEDS: metFORMIN HCl 1,000 MG Tablet 1000 MG PO ×2 (08:17→17:28)
[2020-07-20] MEDS: oxyCODONE 5 MG Tablet PO ×3 (08:19→22:43)
--- NOTE | 2020-07-20 09:35 | PCA ---
Provided pt care and incontinence care with other aide Rossi, when we were doing rolling pt became very nauseated and began vomiting. vomit= dark brown pure liquid
[2020-07-20 10:00] VITALS: PULSE 78; RESP 18; O2SAT 94
[2020-07-20 11:06] LABS: Bedside Glucose 102 mg/dL (70-110)
--- NOTE | 2020-07-20 13:16 | CASEMGMT ---
Social Work IDT met with patient and for care plan meeting. Discussed patient's progress in therapy and nursing. Explained Medicare benefit and encouraged to contact secondary insurance to ensure copay coverage. IDT explained anticipating pt having a longer recovery and will be utilizing majority of Medicare days. Pt and expressed understanding. The goal is for pt to return home with close to PLOF. Will continue to follow. SARA NajeraW
[2020-07-20 14:26] VITALS: BP 140/61; PULSE 85; RESP 16; TEMP 36.3; O2SAT 93
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
[2020-07-20 16:30] LABS: Bedside Glucose 76 mg/dL (70-110)
[2020-07-20 17:30] VITALS: PULSE 85
[2020-07-20 21:30] LABS: Bedside Glucose 160 mg/dL (70-110)
[2020-07-20] MEDS: amLODIPine 5 MG Tablet PO (22:24)
[2020-07-20] MEDS: MELATONIN 3 MG TABLET PO (22:25)
[2020-07-20] MEDS: Atorvastatin Calcium 10 MG Tablet PO (22:26)
[2020-07-21 05:00] VITALS: BP 147/55; PULSE 79; RESP 16; TEMP 36.6; O2SAT 92
[2020-07-21 06:20] LABS: Bedside Glucose 156 mg/dL (70-110)
[2020-07-21] MEDS: DULoxetine Hcl 60 MG Capsule PO (06:41)
[2020-07-21] MEDS: Acetaminophen 500 MG Tablet 1000 MG PO ×3 (06:41→20:54)
[2020-07-21] MEDS: Methocarbamol 500 MG Tablet 1000 MG PO ×3 (06:41→20:54)
[2020-07-21 06:42] VITALS: BP 147/55; PULSE 79
[2020-07-21] MEDS: Metoprolol Tartrate 50 MG Tablet PO ×2 (06:42→17:17)
[2020-07-21] MEDS: Enoxaparin 40 MG/0.4 ML Syringe SC (06:42)
[2020-07-21] MEDS: Aspirin E.C. 81 MG Tablet PO (06:42)
[2020-07-21] MEDS: Menthol/Lanolin/Calamine/Znox 113 GM Tube 1 APPLIC TOPICAL ×2 (06:48→17:19)
[2020-07-21 07:38] VITALS: O2SAT 92
[2020-07-21] MEDS: Insulin Lispro 100 UNIT/ML INSULN.PEN 10 UNIT SC ×2 (08:05→11:46)
[2020-07-21] MEDS: Gabapentin 100 MG Capsule PO ×3 (08:05→17:16)
[2020-07-21] MEDS: Iron Polysaccharide Complex 150 MG CAPSULE PO (08:06)
[2020-07-21] MEDS: metFORMIN HCl 1,000 MG Tablet 1000 MG PO ×2 (08:06→17:16)
[2020-07-21] MEDS: oxyCODONE 5 MG Tablet PO ×2 (08:12→20:54)
[2020-07-21] MEDS: Lidocaine 5% Patch 2 PATCH TOPICAL (09:18)
[2020-07-21 11:35] LABS: Bedside Glucose 150 mg/dL (70-110)
--- NOTE | 2020-07-21 11:38 | NURSING ---
updated in room and pt also stated i call my and update him.
[2020-07-21 13:49] VITALS: BP 123/59; PULSE 80; RESP 17; TEMP 36.9; O2SAT 95
--- NOTE | 2020-07-21 13:56 | MDS.RN ---
resident resting, door to room closed, will completed staff pain assessment for ABHIJIT 07/22/20
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
[2020-07-21 16:31] LABS: Bedside Glucose 75 mg/dL (70-110)
[2020-07-21 17:17] VITALS: BP 123/59; PULSE 80
[2020-07-21] MEDS: Atorvastatin Calcium 10 MG Tablet PO (20:54)
[2020-07-21] MEDS: MELATONIN 3 MG TABLET PO (20:54)
[2020-07-21] MEDS: amLODIPine 5 MG Tablet PO (20:54)
[2020-07-21 21:16] VITALS: PULSE 84; RESP 16; O2SAT 94
[2020-07-21 21:41] LABS: Bedside Glucose 137 mg/dL (70-110)
--- NOTE | 2020-07-21 23:15 | RAD_ITS ---
STUDY: X-RAY - ABDOMEN/PELVIS REASON FOR EXAM: Female, 70 years old. diarrhea -- portable if possible, pt painful, pt vip TECHNIQUE: 3 AP supine views of the abdomen and pelvis. COMPARISON: 07/17/2020 FINDINGS: Possible nondisplaced fracture of the 10th posterior lateral right rib. There is an unremarkable bowel gas pattern. There is no demonstrated free abdominal air on supine image. Normal soft tissue structures. There are diffuse degenerative changes of the visualized spine. Stable fracture deformity of the right inferior and superior ramus pubis. Catheter over the lower pelvis and symphysis pubis. RAD/Abdomen Single View (Portable) IMPRESSION: There is no obstruction or perforation on supine image. Osseous injury as above. Electronically Signed: Giana Stewart MD at 3:28 EDT , Service support ,
[2020-07-22 05:00] VITALS: BP 136/53; PULSE 82; RESP 16; TEMP 36.8; O2SAT 94
[2020-07-22 06:25] VITALS: PULSE 82
[2020-07-22] MEDS: DULoxetine Hcl 60 MG Capsule PO (06:25)
[2020-07-22] MEDS: Acetaminophen 500 MG Tablet 1000 MG PO ×3 (06:25→22:04)
[2020-07-22] MEDS: Metoprolol Tartrate 50 MG Tablet PO ×2 (06:25→17:12)
[2020-07-22 06:26] LABS: Bedside Glucose 90 mg/dL (70-110)
[2020-07-22] MEDS: Methocarbamol 500 MG Tablet 1000 MG PO ×3 (06:26→22:04)
[2020-07-22] MEDS: Enoxaparin 40 MG/0.4 ML Syringe SC (06:27)
[2020-07-22] MEDS: Menthol/Lanolin/Calamine/Znox 113 GM Tube 1 APPLIC TOPICAL ×2 (06:27→17:11)
[2020-07-22] MEDS: Lidocaine 5% Patch 2 PATCH TOPICAL (06:32)
[2020-07-22] MEDS: Gabapentin 100 MG Capsule PO ×3 (08:15→17:03)
[2020-07-22] MEDS: Iron Polysaccharide Complex 150 MG CAPSULE PO (08:15)
[2020-07-22] MEDS: Aspirin E.C. 81 MG Tablet PO (08:15)
[2020-07-22] MEDS: metFORMIN HCl 1,000 MG Tablet 1000 MG PO ×2 (08:15→17:04)
[2020-07-22] MEDS: Insulin Lispro 100 UNIT/ML INSULN.PEN 10 UNIT SC ×2 (08:16→13:40)
[2020-07-22] MEDS: oxyCODONE 5 MG Tablet PO ×3 (09:12→23:48)
[2020-07-22 10:00] VITALS: PULSE 75; O2SAT 95
[2020-07-22] MEDS: Loperamide 2 MG Capsule PO ×2 (10:17→17:15)
[2020-07-22 10:45] LABS: Bedside Glucose 117 mg/dL (70-110)
--- NOTE | 2020-07-22 11:36 | NURSING ---
Per [facility], Pt is able to wait until she is stronger and can go to appointment in wheelchair to f/u. Xrays will need to be taken and sent with patient when she does attend appointment.
[2020-07-22 14:14] VITALS: BP 123/62; PULSE 88; RESP 16; TEMP 36.6; O2SAT 95
[2020-07-22 14:43] VITALS: O2SAT 99
--- NOTE | 2020-07-22 15:03 | NURSING ---
Pt requesting toe nail trim, pt diabetic, podiatry has been consulted, message was left for Dr. Catherine's office with request for consult
[2020-07-22] MEDS: Loratadine 10 MG Tablet PO (15:29)
[2020-07-22 16:11] LABS: Bedside Glucose 87 mg/dL (70-110)
[2020-07-22 17:12] VITALS: PULSE 88
[2020-07-22 21:31] LABS: Bedside Glucose 122 mg/dL (70-110)
[2020-07-22] MEDS: Atorvastatin Calcium 10 MG Tablet PO (22:04)
[2020-07-22] MEDS: amLODIPine 5 MG Tablet PO (22:04)
[2020-07-22] MEDS: MELATONIN 3 MG TABLET PO (22:05)
[2020-07-23 05:00] VITALS: BP 110/49; PULSE 78; RESP 18; TEMP 35.9; O2SAT 95
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
[2020-07-23 06:30] LABS: Bedside Glucose 90 mg/dL (70-110)
[2020-07-23] MEDS: Enoxaparin 40 MG/0.4 ML Syringe SC (06:30)
[2020-07-23 06:31] VITALS: BP 110/49; PULSE 78
[2020-07-23] MEDS: Metoprolol Tartrate 50 MG Tablet PO ×2 (06:31→17:35)
[2020-07-23] MEDS: Methocarbamol 500 MG Tablet 1000 MG PO ×3 (06:31→21:56)
[2020-07-23] MEDS: Lidocaine 5% Patch 2 PATCH TOPICAL (06:35)
[2020-07-23] MEDS: DULoxetine Hcl 60 MG Capsule PO (06:36)
[2020-07-23] MEDS: Acetaminophen 500 MG Tablet 1000 MG PO ×3 (06:37→21:55)
[2020-07-23] MEDS: Menthol/Lanolin/Calamine/Znox 113 GM Tube 1 APPLIC TOPICAL ×2 (06:41→17:37)
[2020-07-23] MEDS: oxyCODONE 5 MG Tablet PO ×3 (06:42→21:53)
[2020-07-23] MEDS: Insulin Lispro 100 UNIT/ML INSULN.PEN 10 UNIT SC ×2 (06:46→17:37)
[2020-07-23 07:35] LABS: Absolute Lymphocyte Count 1.22 X10^3/uL (0.83-4.51); Absolute Neutrophil Count 5.5 X10^3/uL (2.0-7.7); Basophil# 0.04 X10^3/uL; Basophil% 0.5 % (0-1); Eosinophil# 0.36 X10^3/uL; Eosinophils% 4.6 % (0-5); Hematocrit 31.2 % (37-47); Hemoglobin 9.4 g/dL (12.0-15.0); Lymphocyte # 1.22 X10^3/ul (4.0); Lymphocyte % 15.6 % (19-41); Mean Corp Hgb Conc 30.1 g/dL (32-36); Mean Corpuscular Hgb 28.4 pg (27.0-32.0); Mean Corpuscular Volume 94.3 fL (81-99); Mean Platelet Vol. 9.8 fl (6.2-12.0); Monocyte% 7.7 % (0-10); NRBC Flagged by Analyzer 0 % (0-5); Neutrophil % 70.4 % (47-70); Platelet Count 360 K/mm3 (150-450); RBC Distribution Width CV 15.9 % (11.6-14.6); RBC Distribution Width SD 54.4 fl (35.1-43.9); Red Blood Count 3.31 M/mm3 (4.2-5.4); White Blood Count 7.8 K/mm3 (4.4-11.0)
[2020-07-23 07:57] LABS: Anion Gap 4 (5-15); BUN 18 mg/dL (7-18); BUN/Creat Ratio 25.6 RATIO (10-20); Chloride 103 mmol/L (98-107); EST Glomerular Filtration Rate 87 mL/min (>60); Est Glom Filt Rate - Afr Amer 106 mL/min (>60); Estimated Creatinine Clearance 54.71 ml/min; Glucose 87 mg/dL (74-106); Potassium 3.9 mmol/L (3.5-5.1); Sodium Level 138 mmol/L (136-145)
[2020-07-23] MEDS: Aspirin E.C. 81 MG Tablet PO (08:46)
[2020-07-23] MEDS: metFORMIN HCl 1,000 MG Tablet 1000 MG PO ×2 (08:47→17:35)
[2020-07-23] MEDS: Gabapentin 100 MG Capsule PO ×3 (08:47→17:35)
[2020-07-23] MEDS: Iron Polysaccharide Complex 150 MG CAPSULE PO (08:47)
[2020-07-23] MEDS: Loperamide 2 MG Capsule PO (10:41)
[2020-07-23] MEDS: Tuberculin,Purif.prot.deriv. 50 TU/ML Vial 5 ML ID (10:41)
[2020-07-23 10:46] LABS: Bedside Glucose 89 mg/dL (70-110)
[2020-07-23 13:59] VITALS: BP 119/58; PULSE 78; RESP 16; TEMP 36.4; O2SAT 94
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
[2020-07-23 16:45] LABS: Bedside Glucose 117 mg/dL (70-110)
[2020-07-23 17:35] VITALS: PULSE 78
[2020-07-23 21:40] VITALS: PULSE 83; RESP 18; O2SAT 98
[2020-07-23] MEDS: MELATONIN 3 MG TABLET PO (21:54)
[2020-07-23] MEDS: Atorvastatin Calcium 10 MG Tablet PO (21:54)
[2020-07-23] MEDS: amLODIPine 5 MG Tablet PO (21:55)
[2020-07-23 21:56] LABS: Bedside Glucose 105 mg/dL (70-110)
[2020-07-24 05:00] VITALS: BP 141/62; PULSE 76; RESP 16; TEMP 36.9; O2SAT 92
[2020-07-24 06:15] VITALS: BP 141/62; PULSE 76
[2020-07-24] MEDS: Metoprolol Tartrate 50 MG Tablet PO ×2 (06:15→18:47)
[2020-07-24] MEDS: Methocarbamol 500 MG Tablet 1000 MG PO ×3 (06:15→22:34)
[2020-07-24] MEDS: DULoxetine Hcl 60 MG Capsule PO (06:15)
[2020-07-24] MEDS: Acetaminophen 500 MG Tablet 1000 MG PO ×3 (06:15→22:33)
[2020-07-24] MEDS: Enoxaparin 40 MG/0.4 ML Syringe SC (06:16)
[2020-07-24] MEDS: Menthol/Lanolin/Calamine/Znox 113 GM Tube 1 APPLIC TOPICAL ×2 (06:19→18:48)
[2020-07-24 06:21] LABS: Bedside Glucose 96 mg/dL (70-110)
[2020-07-24] MEDS: Insulin Lispro 100 UNIT/ML INSULN.PEN 10 UNIT SC (08:50)
[2020-07-24] MEDS: Aspirin E.C. 81 MG Tablet PO (08:52)
[2020-07-24] MEDS: Iron Polysaccharide Complex 150 MG CAPSULE PO (08:52)
[2020-07-24] MEDS: Gabapentin 100 MG Capsule PO ×3 (08:52→18:46)
[2020-07-24] MEDS: metFORMIN HCl 1,000 MG Tablet 1000 MG PO (08:52)
[2020-07-24] MEDS: oxyCODONE 5 MG Tablet PO ×2 (08:56→22:32)
[2020-07-24] MEDS: Lidocaine 5% Patch 2 PATCH TOPICAL (10:06)
[2020-07-24 10:51] LABS: Bedside Glucose 69 mg/dL (70-110)
[2020-07-24] MEDS: Loperamide 2 MG Capsule PO ×2 (12:09→18:47)
[2020-07-24 12:15] LABS: Bedside Glucose 49 mg/dL (70-110)
--- NOTE | 2020-07-24 12:26 | NURSING ---
Notified Dr. Baptiste of patient's BS of 49. Received order to give Glucagon 1mg IM, Stop Humalog and decrease Lantus to 40 units at HS. Order repeated back will add orders.
[2020-07-24] MEDS: Glucagon 1 MG/ML Syringe IM (13:09)
[2020-07-24 15:20] VITALS: BP 129/56; PULSE 78; RESP 18; TEMP 36.2; O2SAT 96
[2020-07-24 16:31] LABS: Bedside Glucose 167 mg/dL (70-110)
[2020-07-24 18:47] VITALS: BP 129/56; PULSE 78
[2020-07-24 21:36] LABS: Bedside Glucose 167 mg/dL (70-110)
[2020-07-24] MEDS: MELATONIN 3 MG TABLET PO (22:34)
[2020-07-24] MEDS: Atorvastatin Calcium 10 MG Tablet PO (22:34)
[2020-07-24] MEDS: amLODIPine 5 MG Tablet PO (22:35)
[2020-07-25 05:00] VITALS: BP 125/58; PULSE 70; RESP 16; TEMP 36.6; O2SAT 96
[2020-07-25 06:35] LABS: Bedside Glucose 128 mg/dL (70-110)
[2020-07-25] MEDS: Enoxaparin 40 MG/0.4 ML Syringe SC (06:54)
[2020-07-25] MEDS: Lidocaine 5% Patch 2 PATCH TOPICAL (06:54)
[2020-07-25] MEDS: oxyCODONE 5 MG Tablet PO ×3 (06:54→21:40)
[2020-07-25 06:55] VITALS: BP 125/58; PULSE 70
[2020-07-25] MEDS: Methocarbamol 500 MG Tablet 1000 MG PO ×3 (06:55→21:50)
[2020-07-25] MEDS: Acetaminophen 500 MG Tablet 1000 MG PO ×3 (06:55→21:50)
[2020-07-25] MEDS: Metoprolol Tartrate 50 MG Tablet PO ×2 (06:55→17:46)
[2020-07-25] MEDS: DULoxetine Hcl 60 MG Capsule PO (06:56)
[2020-07-25] MEDS: Menthol/Lanolin/Calamine/Znox 113 GM Tube 1 APPLIC TOPICAL ×2 (06:56→17:48)
[2020-07-25] MEDS: Gabapentin 100 MG Capsule PO ×3 (08:17→17:46)
[2020-07-25] MEDS: Iron Polysaccharide Complex 150 MG CAPSULE PO (08:18)
[2020-07-25] MEDS: metFORMIN HCl 1,000 MG Tablet 1000 MG PO ×2 (08:18→17:46)
[2020-07-25] MEDS: Aspirin E.C. 81 MG Tablet PO (08:18)
[2020-07-25 11:00] LABS: Bedside Glucose 161 mg/dL (70-110)
[2020-07-25 14:25] VITALS: BP 124/57; PULSE 78; RESP 16; TEMP 37.3; O2SAT 98
--- NOTE | 2020-07-25 14:33 | NURSING ---
This nurse talked to Michael in Xray about sending wrist xray results to Dr. Pedro, Michael stated she would send them over to his office.
[2020-07-25 16:36] LABS: Bedside Glucose 132 mg/dL (70-110)
[2020-07-25 17:46] VITALS: PULSE 78
[2020-07-25 21:16] LABS: Bedside Glucose 154 mg/dL (70-110)
[2020-07-25] MEDS: amLODIPine 5 MG Tablet PO (21:51)
[2020-07-25] MEDS: MELATONIN 3 MG TABLET PO (21:51)
[2020-07-25] MEDS: Atorvastatin Calcium 10 MG Tablet PO (21:51)
[2020-07-25 22:00] VITALS: RESP 16; O2SAT 97
[2020-07-26 05:00] VITALS: BP 135/62; PULSE 71; RESP 16; TEMP 36.8; O2SAT 96
[2020-07-26 06:16] LABS: Bedside Glucose 100 mg/dL (70-110)
[2020-07-26 06:18] VITALS: BP 135/62; PULSE 71
[2020-07-26] MEDS: DULoxetine Hcl 60 MG Capsule PO (06:18)
[2020-07-26] MEDS: Methocarbamol 500 MG Tablet 1000 MG PO (06:18)
[2020-07-26] MEDS: Metoprolol Tartrate 50 MG Tablet PO ×2 (06:18→17:48)
[2020-07-26] MEDS: Enoxaparin 40 MG/0.4 ML Syringe SC (06:19)
[2020-07-26] MEDS: Acetaminophen 500 MG Tablet 1000 MG PO ×3 (06:19→21:44)
[2020-07-26] MEDS: Menthol/Lanolin/Calamine/Znox 113 GM Tube 1 APPLIC TOPICAL ×2 (06:24→17:50)
[2020-07-26] MEDS: metFORMIN HCl 1,000 MG Tablet 1000 MG PO ×2 (08:21→17:48)
[2020-07-26] MEDS: Aspirin E.C. 81 MG Tablet PO (08:21)
[2020-07-26] MEDS: Gabapentin 100 MG Capsule PO ×3 (08:21→17:48)
[2020-07-26] MEDS: Iron Polysaccharide Complex 150 MG CAPSULE PO (08:21)
[2020-07-26] MEDS: Lidocaine 5% Patch 2 PATCH TOPICAL (09:16)
[2020-07-26] MEDS: oxyCODONE 5 MG Tablet PO ×2 (09:31→13:33)
[2020-07-26 09:35] VITALS: PULSE 66; RESP 18; O2SAT 98
--- NOTE | 2020-07-26 10:19 | MDS.RN ---
Information for the mds was obtained from review of the clinical record, interview of resident, staff, and direct observation of resident's care.
[2020-07-26 10:56] LABS: Bedside Glucose 177 mg/dL (70-110)
--- NOTE | 2020-07-26 11:36 | NURSING ---
UPDATED AND PT STATED SHE UPDATES HIM.
[2020-07-26 14:11] VITALS: BP 107/64; PULSE 80; RESP 18; TEMP 36.4; O2SAT 18
[2020-07-26 16:21] LABS: Bedside Glucose 110 mg/dL (70-110)
[2020-07-26 17:48] VITALS: BP 107/64; PULSE 80
--- NOTE | 2020-07-26 18:19 | NURSING ---
ASKED PT IF SHE HAD THE PNEUMONIA VACCINE. PT STATED YES BUT DIDNT REMEMBER WHICH ONE. PT STATED HER DR WAS DR. EMILY MARSHALL. HE WILL NEED CALLED IN MORNING. RN AWARE. PT IS ALSO SUPPOSE TO RECEIVE HER 2ND COVID ON 07/28/20.
[2020-07-26 21:15] LABS: Bedside Glucose 183 mg/dL (70-110)
[2020-07-26] MEDS: Atorvastatin Calcium 10 MG Tablet PO (21:42)
[2020-07-26] MEDS: MELATONIN 3 MG TABLET PO (21:44)
[2020-07-26] MEDS: amLODIPine 5 MG Tablet PO (21:45)
[2020-07-27] MEDS: oxyCODONE 5 MG Tablet PO ×2 (00:15→09:12)
[2020-07-27 05:00] VITALS: BP 147/60; PULSE 73; RESP 18; TEMP 36.6; O2SAT 92
[2020-07-27] MEDS: Acetaminophen 500 MG Tablet 1000 MG PO ×3 (05:50→21:33)
[2020-07-27] MEDS: Enoxaparin 40 MG/0.4 ML Syringe SC (05:50)
[2020-07-27 05:51] VITALS: BP 147/60; PULSE 73
[2020-07-27] MEDS: DULoxetine Hcl 60 MG Capsule PO (05:51)
[2020-07-27] MEDS: Metoprolol Tartrate 50 MG Tablet PO ×2 (05:51→17:23)
[2020-07-27] MEDS: Menthol/Lanolin/Calamine/Znox 113 GM Tube 1 APPLIC TOPICAL ×2 (05:51→17:27)
[2020-07-27 06:20] LABS: Bedside Glucose 163 mg/dL (70-110)
[2020-07-27] MEDS: Aspirin E.C. 81 MG Tablet PO (07:49)
[2020-07-27] MEDS: metFORMIN HCl 1,000 MG Tablet 1000 MG PO ×2 (07:50→17:22)
[2020-07-27] MEDS: Iron Polysaccharide Complex 150 MG CAPSULE PO (07:50)
[2020-07-27] MEDS: Gabapentin 100 MG Capsule PO ×3 (09:12→17:23)
[2020-07-27] MEDS: Lidocaine 5% Patch 2 PATCH TOPICAL (09:36)
[2020-07-27 11:01] LABS: Bedside Glucose 174 mg/dL (70-110)
[2020-07-27 13:55] VITALS: BP 131/71; PULSE 81; RESP 18; TEMP 36.2; O2SAT 95
[2020-07-27 16:21] LABS: Bedside Glucose 170 mg/dL (70-110)
[2020-07-27 17:23] VITALS: PULSE 81
[2020-07-27] MEDS: Loperamide 2 MG Capsule PO (17:26)
[2020-07-27 20:01] VITALS: PULSE 54; RESP 16; O2SAT 96
[2020-07-27 21:21] LABS: Bedside Glucose 214 mg/dL (70-110)
[2020-07-27] MEDS: MELATONIN 3 MG TABLET PO (21:33)
[2020-07-27] MEDS: Atorvastatin Calcium 10 MG Tablet PO (21:33)
[2020-07-27] MEDS: amLODIPine 5 MG Tablet PO (21:33)
[2020-07-28 05:00] VITALS: BP 141/63; PULSE 79; RESP 16; TEMP 36.7; O2SAT 93
[2020-07-28 06:00] VITALS: PULSE 79
[2020-07-28] MEDS: Metoprolol Tartrate 50 MG Tablet PO ×2 (06:00→17:37)
[2020-07-28] MEDS: Acetaminophen 500 MG Tablet 1000 MG PO ×3 (06:00→21:19)
[2020-07-28] MEDS: DULoxetine Hcl 60 MG Capsule PO (06:00)
[2020-07-28] MEDS: Loperamide 2 MG Capsule PO ×2 (06:00→12:01)
[2020-07-28] MEDS: Enoxaparin 40 MG/0.4 ML Syringe SC (06:00)
[2020-07-28] MEDS: Menthol/Lanolin/Calamine/Znox 113 GM Tube 1 APPLIC TOPICAL ×2 (06:05→17:35)
[2020-07-28 06:35] LABS: Bedside Glucose 173 mg/dL (70-110)
[2020-07-28] MEDS: oxyCODONE 5 MG Tablet PO ×2 (08:06→12:58)
[2020-07-28] MEDS: Aspirin E.C. 81 MG Tablet PO (08:06)
[2020-07-28] MEDS: Gabapentin 100 MG Capsule PO ×3 (08:06→17:36)
[2020-07-28] MEDS: Iron Polysaccharide Complex 150 MG CAPSULE PO (08:06)
[2020-07-28] MEDS: metFORMIN HCl 1,000 MG Tablet 1000 MG PO ×2 (08:07→17:36)
[2020-07-28] MEDS: Lidocaine 5% Patch 2 PATCH TOPICAL (09:48)
--- NOTE | 2020-07-28 09:56 | NURSING ---
PT RECEIVED 2ND COVID SHOT TODAY IN LEFT DELT.
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
[2020-07-28 10:45] VITALS: PULSE 76; RESP 18; O2SAT 96
[2020-07-28 11:16] LABS: Bedside Glucose 184 mg/dL (70-110)
[2020-07-28 13:45] VITALS: BP 122/60; PULSE 77; RESP 16; TEMP 36.2; O2SAT 95
--- NOTE | 2020-07-28 15:16 | NURSING ---
UPDATED IN ROOM AND PT UPDATED .
[2020-07-28 16:30] LABS: Bedside Glucose 142 mg/dL (70-110)
[2020-07-28 17:37] VITALS: BP 122/60; PULSE 77
--- NOTE | 2020-07-28 18:51 | NUR.TO.PHY ---
IN TO SEE PT TODAY. SEE REPORT.
[2020-07-28] MEDS: MELATONIN 3 MG TABLET PO (21:18)
[2020-07-28] MEDS: Atorvastatin Calcium 10 MG Tablet PO (21:18)
[2020-07-28] MEDS: amLODIPine 5 MG Tablet PO (21:19)
[2020-07-28 21:40] LABS: Bedside Glucose 186 mg/dL (70-110)
[2020-07-29] MEDS: oxyCODONE 5 MG Tablet PO ×3 (03:58→17:12)
[2020-07-29 05:00] VITALS: BP 147/62; PULSE 73; RESP 18; TEMP 36.9; O2SAT 91
[2020-07-29] MEDS: Enoxaparin 40 MG/0.4 ML Syringe SC (05:03)
[2020-07-29] MEDS: Menthol/Lanolin/Calamine/Znox 113 GM Tube 1 APPLIC TOPICAL ×2 (05:04→17:13)
[2020-07-29] MEDS: Acetaminophen 500 MG Tablet 1000 MG PO ×3 (05:04→22:05)
[2020-07-29] MEDS: DULoxetine Hcl 60 MG Capsule PO (05:04)
[2020-07-29 05:07] VITALS: BP 147/62; PULSE 73
[2020-07-29] MEDS: Metoprolol Tartrate 50 MG Tablet PO ×2 (05:07→17:09)
[2020-07-29] MEDS: Loperamide 2 MG Capsule PO ×3 (05:10→23:17)
[2020-07-29 06:20] LABS: Bedside Glucose 183 mg/dL (70-110)
[2020-07-29] MEDS: Aspirin E.C. 81 MG Tablet PO (08:37)
[2020-07-29] MEDS: Iron Polysaccharide Complex 150 MG CAPSULE PO (08:37)
[2020-07-29] MEDS: metFORMIN HCl 1,000 MG Tablet 1000 MG PO ×2 (08:37→17:08)
[2020-07-29] MEDS: Gabapentin 100 MG Capsule PO ×3 (08:37→17:08)
[2020-07-29] MEDS: Ondansetron ODT 4 MG Tablet PO (10:00)
[2020-07-29 11:06] LABS: Bedside Glucose 176 mg/dL (70-110)
--- NOTE | 2020-07-29 14:00 | NURSING ---
Removable splint made and applied today, sutures removed, area well approximated and free from s/s of infection
[2020-07-29 14:08] VITALS: BP 123/68; PULSE 79; RESP 16; TEMP 37.1; O2SAT 95
[2020-07-29 16:21] LABS: Bedside Glucose 143 mg/dL (70-110)
[2020-07-29 17:09] VITALS: PULSE 79
[2020-07-29 21:21] LABS: Bedside Glucose 183 mg/dL (70-110)
[2020-07-29] MEDS: MELATONIN 3 MG TABLET PO (22:06)
[2020-07-29] MEDS: Atorvastatin Calcium 10 MG Tablet PO (22:07)
[2020-07-29] MEDS: amLODIPine 5 MG Tablet PO (22:07)
[2020-07-29 22:10] VITALS: PULSE 78; RESP 16; O2SAT 97
[2020-07-30 05:00] VITALS: BP 151/75; PULSE 76; RESP 16; TEMP 36.6; O2SAT 92
[2020-07-30 06:16] LABS: Bedside Glucose 135 mg/dL (70-110)
[2020-07-30 06:18] VITALS: BP 151/75; PULSE 76
[2020-07-30] MEDS: DULoxetine Hcl 60 MG Capsule PO (06:18)
[2020-07-30] MEDS: Metoprolol Tartrate 50 MG Tablet PO ×2 (06:18→16:59)
[2020-07-30] MEDS: Acetaminophen 500 MG Tablet 1000 MG PO ×3 (06:18→21:32)
[2020-07-30] MEDS: Menthol/Lanolin/Calamine/Znox 113 GM Tube 1 APPLIC TOPICAL ×2 (06:20→16:59)
[2020-07-30] MEDS: Enoxaparin 40 MG/0.4 ML Syringe SC (06:21)
[2020-07-30 07:09] LABS: Absolute Lymphocyte Count 1.07 X10^3/uL (0.83-4.51); Absolute Neutrophil Count 4.4 X10^3/uL (2.0-7.7); Basophil# 0.04 X10^3/uL; Basophil% 0.6 % (0-1); Eosinophil# 0.28 X10^3/uL; Eosinophils% 4.4 % (0-5); Hematocrit 33.2 % (37-47); Lymphocyte # 1.07 X10^3/ul (4.0); Lymphocyte % 16.8 % (19-41); Mean Corp Hgb Conc 30.1 g/dL (32-36); Mean Corpuscular Hgb 29.1 pg (27.0-32.0); Mean Corpuscular Volume 96.5 fL (81-99); Mean Platelet Vol. 9.9 fl (6.2-12.0); Monocyte# 0.56 X10^3/uL; Monocyte% 8.8 % (0-10); NRBC Flagged by Analyzer 0 % (0-5); Neutrophil # 4.38 X10^3/uL (2.7-7.7); Neutrophil % 68.8 % (47-70); Platelet Count 347 K/mm3 (150-450); RBC Distribution Width CV 15.4 % (11.6-14.6); RBC Distribution Width SD 53.9 fl (35.1-43.9); Red Blood Count 3.44 M/mm3 (4.2-5.4); White Blood Count 6.4 K/mm3 (4.4-11.0)
[2020-07-30 07:23] LABS: Anion Gap 5 (5-15); BUN 26 mg/dL (7-18); BUN/Creat Ratio 31.4 RATIO (10-20); Calcium,Total 8.9 mg/dL (8.5-10.1); Chloride 106 mmol/L (98-107); Creatinine, Serum 0.83 mg/dL (0.55-1.02); EST Glomerular Filtration Rate 72 mL/min (>60); Est Glom Filt Rate - Afr Amer 87 mL/min (>60); Estimated Creatinine Clearance 65.91 ml/min; Glucose 137 mg/dL (74-106); Sodium Level 137 mmol/L (136-145)
[2020-07-30] MEDS: Iron Polysaccharide Complex 150 MG CAPSULE PO (08:00)
[2020-07-30] MEDS: Aspirin E.C. 81 MG Tablet PO (08:00)
[2020-07-30] MEDS: Gabapentin 100 MG Capsule PO ×3 (08:00→16:58)
[2020-07-30] MEDS: metFORMIN HCl 1,000 MG Tablet 1000 MG PO ×2 (08:00→16:58)
[2020-07-30] MEDS: Lidocaine 5% Patch 2 PATCH TOPICAL (08:42)
[2020-07-30] MEDS: oxyCODONE 5 MG Tablet PO ×2 (09:12→16:33)
[2020-07-30] MEDS: Loperamide 2 MG Capsule PO ×3 (09:13→22:38)
[2020-07-30] MEDS: Ondansetron ODT 4 MG Tablet PO (09:14)
[2020-07-30 09:15] VITALS: PULSE 69; RESP 18; O2SAT 93
[2020-07-30 11:06] LABS: Bedside Glucose 156 mg/dL (70-110)
[2020-07-30 13:35] VITALS: BP 129/58; PULSE 78; RESP 16; TEMP 36; O2SAT 91
--- NOTE | 2020-07-30 15:50 | NURSING ---
pt updated in room.
[2020-07-30 16:30] LABS: Bedside Glucose 121 mg/dL (70-110)
[2020-07-30 16:59] VITALS: BP 129/58; PULSE 78
[2020-07-30 21:26] LABS: Bedside Glucose 168 mg/dL (70-110)
[2020-07-30] MEDS: MELATONIN 3 MG TABLET PO (21:32)
[2020-07-30] MEDS: Atorvastatin Calcium 10 MG Tablet PO (21:32)
[2020-07-30] MEDS: amLODIPine 5 MG Tablet PO (21:32)
[2020-07-31 05:00] VITALS: BP 116/57; PULSE 76; RESP 16; TEMP 36.3; O2SAT 96
[2020-07-31 06:16] LABS: Bedside Glucose 145 mg/dL (70-110)
[2020-07-31] MEDS: DULoxetine Hcl 60 MG Capsule PO (06:21)
[2020-07-31] MEDS: Loperamide 2 MG Capsule PO ×3 (06:21→23:30)
[2020-07-31] MEDS: Acetaminophen 500 MG Tablet 1000 MG PO ×2 (06:21→21:48)
[2020-07-31 06:22] VITALS: BP 116/57; PULSE 76
[2020-07-31] MEDS: Metoprolol Tartrate 50 MG Tablet PO ×2 (06:22→17:23)
[2020-07-31] MEDS: oxyCODONE 5 MG Tablet PO ×2 (06:22→10:07)
[2020-07-31] MEDS: Enoxaparin 40 MG/0.4 ML Syringe SC (06:23)
[2020-07-31] MEDS: Menthol/Lanolin/Calamine/Znox 113 GM Tube 1 APPLIC TOPICAL ×2 (06:27→17:26)
[2020-07-31] MEDS: Iron Polysaccharide Complex 150 MG CAPSULE PO (08:15)
[2020-07-31] MEDS: metFORMIN HCl 1,000 MG Tablet 1000 MG PO ×2 (08:15→17:20)
[2020-07-31] MEDS: Gabapentin 100 MG Capsule PO ×3 (08:15→17:20)
[2020-07-31] MEDS: Aspirin E.C. 81 MG Tablet PO (08:15)
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
[2020-07-31 11:20] LABS: Bedside Glucose 186 mg/dL (70-110)
--- NOTE | 2020-07-31 11:41 | NURSING ---
PT STATED SHE UPDATES FAMILY
--- NOTE | 2020-07-31 13:13 | NURSING ---
IN TO SEE PT.
--- NOTE | 2020-07-31 14:21 | NURSING ---
PT COMPLAINED OF LEFT ARM ITCHING UNDER REMOVABLE SPLINT. THIS NURSE WASHED,DRIED AND APPLIED LOTION AND NEW CLOTH SLEEVE. PT STATED THAT IT FELT BETTER.
[2020-07-31 14:30] VITALS: BP 132/65; PULSE 80; RESP 16; TEMP 36.7; O2SAT 96
[2020-07-31 16:26] LABS: Bedside Glucose 118 mg/dL (70-110)
[2020-07-31 17:23] VITALS: BP 132/65; PULSE 80
[2020-07-31 21:35] LABS: Bedside Glucose 166 mg/dL (70-110)
[2020-07-31] MEDS: MELATONIN 3 MG TABLET PO (21:48)
[2020-07-31] MEDS: Atorvastatin Calcium 10 MG Tablet PO (21:48)
[2020-07-31] MEDS: amLODIPine 5 MG Tablet PO (21:48)
[2020-08-01 05:00] VITALS: BP 132/56; PULSE 74; RESP 18; TEMP 36.6; O2SAT 92
[2020-08-01] MEDS: Loperamide 2 MG Capsule PO ×2 (05:58→12:50)
[2020-08-01] MEDS: Acetaminophen 500 MG Tablet 1000 MG PO ×3 (05:58→22:08)
[2020-08-01] MEDS: Enoxaparin 40 MG/0.4 ML Syringe SC (05:58)
[2020-08-01 05:59] VITALS: BP 132/56; PULSE 74
[2020-08-01] MEDS: Menthol/Lanolin/Calamine/Znox 113 GM Tube 1 APPLIC TOPICAL ×2 (05:59→17:26)
[2020-08-01] MEDS: Metoprolol Tartrate 50 MG Tablet PO ×2 (05:59→17:24)
[2020-08-01] MEDS: DULoxetine Hcl 60 MG Capsule PO (05:59)
[2020-08-01 06:26] LABS: Bedside Glucose 128 mg/dL (70-110)
[2020-08-01] MEDS: Aspirin E.C. 81 MG Tablet PO (07:57)
[2020-08-01] MEDS: Iron Polysaccharide Complex 150 MG CAPSULE PO (07:57)
[2020-08-01] MEDS: Gabapentin 100 MG Capsule PO ×3 (07:57→17:23)
[2020-08-01] MEDS: metFORMIN HCl 1,000 MG Tablet 1000 MG PO ×2 (07:58→17:24)
[2020-08-01] MEDS: Ondansetron ODT 4 MG Tablet PO (08:01)
[2020-08-01] MEDS: Lidocaine 5% Patch 2 PATCH TOPICAL (08:47)
[2020-08-01] MEDS: oxyCODONE 5 MG Tablet PO (08:58)
[2020-08-01 11:15] LABS: Bedside Glucose 139 mg/dL (70-110)
[2020-08-01 13:56] VITALS: BP 142/58; PULSE 78; RESP 18; TEMP 35.8; O2SAT 94
[2020-08-01 16:20] LABS: Bedside Glucose 120 mg/dL (70-110)
[2020-08-01 17:24] VITALS: PULSE 78
[2020-08-01] MEDS: Nystatin Powder 15gm Bottle 1 APPLIC TOPICAL (17:27)
[2020-08-01 21:36] LABS: Bedside Glucose 111 mg/dL (70-110)
[2020-08-01] MEDS: MELATONIN 3 MG TABLET PO (22:07)
[2020-08-01] MEDS: Atorvastatin Calcium 10 MG Tablet PO (22:07)
[2020-08-01] MEDS: amLODIPine 5 MG Tablet PO (22:08)
[2020-08-02 05:00] VITALS: BP 135/70; PULSE 84; RESP 18; TEMP 36.6; O2SAT 94
[2020-08-02 05:12] VITALS: BP 135/70; PULSE 84
[2020-08-02] MEDS: Enoxaparin 40 MG/0.4 ML Syringe SC (05:12)
[2020-08-02] MEDS: Metoprolol Tartrate 50 MG Tablet PO ×2 (05:12→18:28)
[2020-08-02] MEDS: Menthol/Lanolin/Calamine/Znox 113 GM Tube 1 APPLIC TOPICAL ×2 (05:12→18:30)
[2020-08-02] MEDS: Acetaminophen 500 MG Tablet 1000 MG PO ×3 (05:12→21:45)
[2020-08-02] MEDS: DULoxetine Hcl 60 MG Capsule PO (05:12)
[2020-08-02] MEDS: Loperamide 2 MG Capsule PO (05:12)
[2020-08-02] MEDS: Nystatin Powder 15gm Bottle 1 APPLIC TOPICAL ×2 (05:13→18:31)
[2020-08-02 06:16] LABS: Bedside Glucose 117 mg/dL (70-110)
[2020-08-02] MEDS: Lidocaine 5% Patch 2 PATCH TOPICAL (08:47)
[2020-08-02] MEDS: Iron Polysaccharide Complex 150 MG CAPSULE PO (08:53)
[2020-08-02] MEDS: Gabapentin 100 MG Capsule PO ×3 (08:53→18:27)
[2020-08-02] MEDS: Aspirin E.C. 81 MG Tablet PO (08:53)
[2020-08-02] MEDS: metFORMIN HCl 1,000 MG Tablet 1000 MG PO ×2 (08:53→18:26)
[2020-08-02] MEDS: Ondansetron ODT 4 MG Tablet PO (08:57)
[2020-08-02] MEDS: oxyCODONE 5 MG Tablet PO ×2 (08:57→18:36)
[2020-08-02 10:55] LABS: Bedside Glucose 172 mg/dL (70-110)
--- NOTE | 2020-08-02 11:43 | NURSING ---
PT STATED SHE UPDATES FAMILY
[2020-08-02 14:18] VITALS: BP 132/68; PULSE 75; RESP 17; TEMP 36.4; O2SAT 91
[2020-08-02 16:30] LABS: Bedside Glucose 102 mg/dL (70-110)
[2020-08-02 18:28] VITALS: BP 132/68; PULSE 75
[2020-08-02 21:21] LABS: Bedside Glucose 180 mg/dL (70-110)
[2020-08-02] MEDS: MELATONIN 3 MG TABLET PO (21:46)
[2020-08-02] MEDS: Atorvastatin Calcium 10 MG Tablet PO (21:46)
[2020-08-02] MEDS: amLODIPine 5 MG Tablet PO (21:48)
[2020-08-02 21:50] VITALS: PULSE 72; RESP 16; O2SAT 95
[2020-08-03 05:00] VITALS: BP 147/66; PULSE 80; RESP 16; TEMP 36.6; O2SAT 92
[2020-08-03 06:15] VITALS: BP 147/66; PULSE 80
[2020-08-03] MEDS: Acetaminophen 500 MG Tablet 1000 MG PO ×3 (06:15→21:33)
[2020-08-03] MEDS: Metoprolol Tartrate 50 MG Tablet PO ×2 (06:15→17:23)
[2020-08-03] MEDS: DULoxetine Hcl 60 MG Capsule PO (06:15)
[2020-08-03] MEDS: Enoxaparin 40 MG/0.4 ML Syringe SC (06:17)
[2020-08-03] MEDS: Menthol/Lanolin/Calamine/Znox 113 GM Tube 1 APPLIC TOPICAL ×2 (06:19→17:23)
[2020-08-03] MEDS: Nystatin Powder 15gm Bottle 1 APPLIC TOPICAL ×2 (06:19→17:23)
[2020-08-03 06:26] LABS: Bedside Glucose 120 mg/dL (70-110)
[2020-08-03] MEDS: Aspirin E.C. 81 MG Tablet PO (08:22)
[2020-08-03] MEDS: Iron Polysaccharide Complex 150 MG CAPSULE PO (08:23)
[2020-08-03] MEDS: Gabapentin 100 MG Capsule PO ×3 (08:23→17:22)
[2020-08-03] MEDS: metFORMIN HCl 1,000 MG Tablet 1000 MG PO ×2 (08:23→17:21)
[2020-08-03] MEDS: Lidocaine 5% Patch 2 PATCH TOPICAL (09:19)
[2020-08-03] MEDS: oxyCODONE 5 MG Tablet PO (09:19)
[2020-08-03 11:35] LABS: Bedside Glucose 149 mg/dL (70-110)
[2020-08-03 14:32] VITALS: BP 141/70; PULSE 80; RESP 16; TEMP 36.7; O2SAT 95
[2020-08-03 16:45] LABS: Bedside Glucose 124 mg/dL (70-110)
[2020-08-03 17:23] VITALS: PULSE 80
[2020-08-03] MEDS: amLODIPine 5 MG Tablet PO (21:33)
[2020-08-03] MEDS: Atorvastatin Calcium 10 MG Tablet PO (21:33)
[2020-08-03] MEDS: MELATONIN 3 MG TABLET PO (21:33)
[2020-08-03] MEDS: Loperamide 2 MG Capsule PO (21:38)
[2020-08-03 21:40] VITALS: PULSE 75; RESP 16; O2SAT 95
[2020-08-03 21:51] LABS: Bedside Glucose 175 mg/dL (70-110)
[2020-08-04 05:00] VITALS: BP 135/45; PULSE 82; RESP 16; TEMP 36.6; O2SAT 94
[2020-08-04 06:16] LABS: Bedside Glucose 133 mg/dL (70-110)
[2020-08-04 06:42] VITALS: BP 135/45; PULSE 82
[2020-08-04] MEDS: Metoprolol Tartrate 50 MG Tablet PO ×2 (06:42→17:48)
[2020-08-04] MEDS: Loperamide 2 MG Capsule PO ×2 (06:42→17:56)
[2020-08-04] MEDS: Acetaminophen 500 MG Tablet 1000 MG PO ×3 (06:43→22:03)
[2020-08-04] MEDS: DULoxetine Hcl 60 MG Capsule PO (06:43)
[2020-08-04] MEDS: Enoxaparin 40 MG/0.4 ML Syringe SC (06:43)
[2020-08-04] MEDS: Menthol/Lanolin/Calamine/Znox 113 GM Tube 1 APPLIC TOPICAL ×2 (06:47→17:49)
[2020-08-04] MEDS: Nystatin Powder 15gm Bottle 1 APPLIC TOPICAL ×2 (06:48→17:49)
[2020-08-04] MEDS: Aspirin E.C. 81 MG Tablet PO (08:45)
[2020-08-04] MEDS: Gabapentin 100 MG Capsule PO ×3 (08:45→17:48)
[2020-08-04] MEDS: metFORMIN HCl 1,000 MG Tablet 1000 MG PO ×2 (08:46→17:48)
[2020-08-04] MEDS: Iron Polysaccharide Complex 150 MG CAPSULE PO (08:46)
[2020-08-04] MEDS: oxyCODONE 5 MG Tablet PO (08:48)
[2020-08-04] MEDS: Lidocaine 5% Patch 2 PATCH TOPICAL (10:12)
[2020-08-04 10:50] LABS: Bedside Glucose 145 mg/dL (70-110)
[2020-08-04 14:17] VITALS: BP 143/71; PULSE 75; RESP 16; TEMP 36.4; O2SAT 97
[2020-08-04 16:40] LABS: Bedside Glucose 112 mg/dL (70-110)
[2020-08-04 17:48] VITALS: BP 143/71; PULSE 75
[2020-08-04 21:20] LABS: Bedside Glucose 124 mg/dL (70-110)
[2020-08-04] MEDS: Atorvastatin Calcium 10 MG Tablet PO (22:02)
[2020-08-04] MEDS: amLODIPine 5 MG Tablet PO (22:04)
[2020-08-04] MEDS: MELATONIN 3 MG TABLET PO (22:04)
[2020-08-04 22:05] VITALS: PULSE 76; RESP 18; O2SAT 97
[2020-08-05] MEDS: Ondansetron ODT 4 MG Tablet PO (04:26)
[2020-08-05] MEDS: Acetaminophen 500 MG Tablet 1000 MG PO ×3 (04:28→22:17)
[2020-08-05 05:00] VITALS: BP 140/67; PULSE 75; RESP 16; TEMP 36.8; O2SAT 95
[2020-08-05 06:26] VITALS: BP 140/67; PULSE 75
[2020-08-05 06:26] LABS: Bedside Glucose 123 mg/dL (70-110)
[2020-08-05] MEDS: Metoprolol Tartrate 50 MG Tablet PO ×2 (06:26→16:40)
[2020-08-05] MEDS: DULoxetine Hcl 60 MG Capsule PO (06:26)
[2020-08-05] MEDS: Enoxaparin 40 MG/0.4 ML Syringe SC (06:28)
[2020-08-05] MEDS: Menthol/Lanolin/Calamine/Znox 113 GM Tube 1 APPLIC TOPICAL ×2 (06:31→16:40)
[2020-08-05] MEDS: Nystatin Powder 15gm Bottle 1 APPLIC TOPICAL ×2 (06:34→16:40)
[2020-08-05] MEDS: Iron Polysaccharide Complex 150 MG CAPSULE PO (08:50)
[2020-08-05] MEDS: Gabapentin 100 MG Capsule PO ×3 (08:50→16:38)
[2020-08-05] MEDS: Aspirin E.C. 81 MG Tablet PO (08:50)
[2020-08-05] MEDS: metFORMIN HCl 1,000 MG Tablet 1000 MG PO ×2 (08:51→16:38)
[2020-08-05] MEDS: oxyCODONE 5 MG Tablet PO ×2 (08:51→16:36)
[2020-08-05] MEDS: Lidocaine 5% Patch 2 PATCH TOPICAL (08:51)
[2020-08-05] MEDS: Loperamide 2 MG Capsule PO ×2 (08:54→22:15)
[2020-08-05 11:01] LABS: Bedside Glucose 130 mg/dL (70-110)
[2020-08-05 13:43] VITALS: BP 121/50; PULSE 65; RESP 18; TEMP 36.1; O2SAT 96
[2020-08-05 16:30] LABS: Bedside Glucose 119 mg/dL (70-110)
[2020-08-05 16:40] VITALS: BP 121/50; PULSE 65
[2020-08-05 22:05] LABS: Bedside Glucose 144 mg/dL (70-110)
[2020-08-05] MEDS: amLODIPine 5 MG Tablet PO (22:17)
[2020-08-05] MEDS: MELATONIN 3 MG TABLET PO (22:17)
[2020-08-05] MEDS: Atorvastatin Calcium 10 MG Tablet PO (22:17)
[2020-08-06 06:30] VITALS: BP 126/68; PULSE 71; RESP 16; TEMP 36.6; O2SAT 94
[2020-08-06] MEDS: Acetaminophen 500 MG Tablet 1000 MG PO ×3 (06:31→21:42)
[2020-08-06] MEDS: Loperamide 2 MG Capsule PO ×2 (06:31→17:17)
[2020-08-06 06:32] VITALS: BP 126/68; PULSE 71
[2020-08-06] MEDS: DULoxetine Hcl 60 MG Capsule PO (06:32)
[2020-08-06] MEDS: Metoprolol Tartrate 50 MG Tablet PO ×2 (06:32→17:11)
[2020-08-06] MEDS: Enoxaparin 40 MG/0.4 ML Syringe SC (06:32)
[2020-08-06] MEDS: Gabapentin 100 MG Capsule PO ×3 (06:32→17:12)
[2020-08-06] MEDS: Menthol/Lanolin/Calamine/Znox 113 GM Tube 1 APPLIC TOPICAL ×2 (06:34→17:15)
[2020-08-06] MEDS: Nystatin Powder 15gm Bottle 1 APPLIC TOPICAL ×2 (06:35→17:14)
[2020-08-06 06:36] LABS: Bedside Glucose 96 mg/dL (70-110)
[2020-08-06 07:25] LABS: Absolute Lymphocyte Count 1.26 X10^3/uL (0.83-4.51); Absolute Neutrophil Count 3.7 X10^3/uL (2.0-7.7); Basophil# 0.03 X10^3/uL; Basophil% 0.5 % (0-1); Eosinophil# 0.34 X10^3/uL; Eosinophils% 5.9 % (0-5); Hematocrit 36.1 % (37-47); Hemoglobin 10.6 g/dL (12.0-15.0); Lymphocyte # 1.26 X10^3/ul (4.0); Mean Corp Hgb Conc 29.4 g/dL (32-36); Mean Corpuscular Hgb 28.1 pg (27.0-32.0); Mean Corpuscular Volume 95.8 fL (81-99); Mean Platelet Vol. 10.3 fl (6.2-12.0); Monocyte# 0.42 X10^3/uL; Monocyte% 7.3 % (0-10); NRBC Flagged by Analyzer 0 % (0-5); Neutrophil # 3.65 X10^3/uL (2.7-7.7); Neutrophil % 63.8 % (47-70); Platelet Count 256 K/mm3 (150-450); RBC Distribution Width CV 15.4 % (11.6-14.6); RBC Distribution Width SD 54.5 fl (35.1-43.9); Red Blood Count 3.77 M/mm3 (4.2-5.4); White Blood Count 5.7 K/mm3 (4.4-11.0)
[2020-08-06 07:58] LABS: Anion Gap 7 (5-15); BUN 23 mg/dL (7-18); BUN/Creat Ratio 28.5 RATIO (10-20); Chloride 107 mmol/L (98-107); Creatinine, Serum 0.81 mg/dL (0.55-1.02); EST Glomerular Filtration Rate 75 mL/min (>60); Est Glom Filt Rate - Afr Amer 90 mL/min (>60); Estimated Creatinine Clearance 67.54 ml/min; Glucose 88 mg/dL (74-106); Potassium 3.6 mmol/L (3.5-5.1); Sodium Level 140 mmol/L (136-145)
[2020-08-06] MEDS: Aspirin E.C. 81 MG Tablet PO (08:24)
[2020-08-06] MEDS: metFORMIN HCl 1,000 MG Tablet 1000 MG PO ×2 (08:24→17:12)
[2020-08-06] MEDS: Iron Polysaccharide Complex 150 MG CAPSULE PO (08:24)
[2020-08-06] MEDS: oxyCODONE 5 MG Tablet PO (09:14)
[2020-08-06 11:15] LABS: Bedside Glucose 101 mg/dL (70-110)
[2020-08-06 13:51] VITALS: BP 115/60; PULSE 67; RESP 16; TEMP 36.8; O2SAT 92
[2020-08-06 16:55] LABS: Bedside Glucose 107 mg/dL (70-110)
[2020-08-06 17:11] VITALS: BP 115/60; PULSE 67
--- NOTE | 2020-08-06 18:17 | NURSING ---
Pt's stockinette under split was changed per pt request and left arm washed.
[2020-08-06] MEDS: amLODIPine 5 MG Tablet PO (21:42)
[2020-08-06] MEDS: Atorvastatin Calcium 10 MG Tablet PO (21:42)
[2020-08-06] MEDS: MELATONIN 3 MG TABLET PO (21:42)
[2020-08-06 22:25] LABS: Bedside Glucose 147 mg/dL (70-110)
[2020-08-07 05:00] VITALS: BP 140/61; PULSE 81; RESP 18; TEMP 36.9; O2SAT 96
[2020-08-07 06:26] LABS: Bedside Glucose 116 mg/dL (70-110)
[2020-08-07] MEDS: Nystatin Powder 15gm Bottle 1 APPLIC TOPICAL ×2 (06:44→17:02)
[2020-08-07] MEDS: Menthol/Lanolin/Calamine/Znox 113 GM Tube 1 APPLIC TOPICAL ×2 (06:44→17:02)
[2020-08-07] MEDS: Enoxaparin 40 MG/0.4 ML Syringe SC (06:44)
[2020-08-07] MEDS: Gabapentin 100 MG Capsule PO ×3 (06:44→17:00)
[2020-08-07 06:45] VITALS: PULSE 81
[2020-08-07] MEDS: DULoxetine Hcl 60 MG Capsule PO (06:45)
[2020-08-07] MEDS: Acetaminophen 500 MG Tablet 1000 MG PO ×3 (06:45→21:36)
[2020-08-07] MEDS: Metoprolol Tartrate 50 MG Tablet PO ×2 (06:45→17:01)
[2020-08-07] MEDS: Iron Polysaccharide Complex 150 MG CAPSULE PO (07:51)
[2020-08-07] MEDS: Aspirin E.C. 81 MG Tablet PO (07:51)
[2020-08-07] MEDS: metFORMIN HCl 1,000 MG Tablet 1000 MG PO ×2 (07:52→17:00)
[2020-08-07 11:01] LABS: Bedside Glucose 157 mg/dL (70-110)
[2020-08-07] MEDS: Loperamide 2 MG Capsule PO ×2 (11:27→21:39)
[2020-08-07 14:47] VITALS: BP 115/61; PULSE 83; RESP 16; TEMP 36.8; O2SAT 95
[2020-08-07 16:31] LABS: Bedside Glucose 120 mg/dL (70-110)
[2020-08-07 17:01] VITALS: PULSE 83
[2020-08-07 21:16] LABS: Bedside Glucose 160 mg/dL (70-110)
[2020-08-07] MEDS: Atorvastatin Calcium 10 MG Tablet PO (21:35)
[2020-08-07] MEDS: amLODIPine 5 MG Tablet PO (21:35)
[2020-08-07] MEDS: MELATONIN 3 MG TABLET PO (21:36)
[2020-08-07 21:40] VITALS: PULSE 74; RESP 16; O2SAT 96
[2020-08-08 05:00] VITALS: BP 128/60; PULSE 80; RESP 16; TEMP 36.7; O2SAT 92
[2020-08-08] MEDS: Loperamide 2 MG Capsule PO ×2 (06:11→22:28)
[2020-08-08] MEDS: DULoxetine Hcl 60 MG Capsule PO (06:11)
[2020-08-08] MEDS: Acetaminophen 500 MG Tablet 1000 MG PO ×3 (06:11→22:32)
[2020-08-08 06:12] VITALS: BP 128/60; PULSE 80
[2020-08-08] MEDS: Enoxaparin 40 MG/0.4 ML Syringe SC (06:12)
[2020-08-08] MEDS: Metoprolol Tartrate 50 MG Tablet PO ×2 (06:12→17:09)
[2020-08-08] MEDS: Nystatin Powder 15gm Bottle 1 APPLIC TOPICAL ×2 (06:18→17:10)
[2020-08-08] MEDS: Menthol/Lanolin/Calamine/Znox 113 GM Tube 1 APPLIC TOPICAL ×2 (06:18→17:10)
[2020-08-08 06:31] LABS: Bedside Glucose 115 mg/dL (70-110)
[2020-08-08] MEDS: Gabapentin 100 MG Capsule PO ×3 (08:21→17:08)
[2020-08-08] MEDS: metFORMIN HCl 1,000 MG Tablet 1000 MG PO ×2 (08:21→17:07)
[2020-08-08] MEDS: Aspirin E.C. 81 MG Tablet PO (08:21)
[2020-08-08] MEDS: Iron Polysaccharide Complex 150 MG CAPSULE PO (08:21)
[2020-08-08] MEDS: Lidocaine 5% Patch 2 PATCH TOPICAL (09:19)
[2020-08-08] MEDS: oxyCODONE 5 MG Tablet PO (09:19)
[2020-08-08 10:00] VITALS: PULSE 75; RESP 18
[2020-08-08 11:15] LABS: Bedside Glucose 132 mg/dL (70-110)
--- NOTE | 2020-08-08 13:20 | NURSING ---
PT LEFT LOWER ARM WASHED,DRY, LOTION AND NEW CLOTH SLEEVE APPLIED.
[2020-08-08 14:17] VITALS: BP 127/75; PULSE 75; RESP 18; TEMP 36.2; O2SAT 96
--- NOTE | 2020-08-08 14:20 | NURSING ---
editorial assistant reported loose stools multiple times a day, aides reporting increase mucus and foul smelling, using imodium more. dr tovar updated, new order to check stool & results: cdiff negative.
--- NOTE | 2020-08-08 14:49 | NURSING ---
updated at visit
[2020-08-08 16:50] LABS: Bedside Glucose 104 mg/dL (70-110)
[2020-08-08 17:09] VITALS: BP 127/75; PULSE 75
[2020-08-08 21:16] LABS: Bedside Glucose 152 mg/dL (70-110)
[2020-08-08] MEDS: MELATONIN 3 MG TABLET PO (22:31)
[2020-08-08] MEDS: Atorvastatin Calcium 10 MG Tablet PO (22:31)
[2020-08-08] MEDS: amLODIPine 5 MG Tablet PO (22:32)
[2020-08-09 05:00] VITALS: BP 122/58; PULSE 82; RESP 18; TEMP 36.6; O2SAT 93
[2020-08-09 06:45] VITALS: BP 122/58; PULSE 82
[2020-08-09] MEDS: Enoxaparin 40 MG/0.4 ML Syringe SC (06:45)
[2020-08-09] MEDS: DULoxetine Hcl 60 MG Capsule PO (06:45)
[2020-08-09] MEDS: Metoprolol Tartrate 50 MG Tablet PO ×2 (06:45→18:08)
[2020-08-09] MEDS: Acetaminophen 500 MG Tablet 1000 MG PO ×3 (06:45→23:06)
[2020-08-09] MEDS: Menthol/Lanolin/Calamine/Znox 113 GM Tube 1 APPLIC TOPICAL ×2 (06:45→18:07)
[2020-08-09] MEDS: Nystatin Powder 15gm Bottle 1 APPLIC TOPICAL ×2 (06:46→18:06)
[2020-08-09] MEDS: Lidocaine 5% Patch 2 PATCH TOPICAL (06:49)
[2020-08-09 06:50] LABS: Bedside Glucose 134 mg/dL (70-110)
[2020-08-09] MEDS: Iron Polysaccharide Complex 150 MG CAPSULE PO (08:27)
[2020-08-09] MEDS: Aspirin E.C. 81 MG Tablet PO (08:27)
[2020-08-09] MEDS: Gabapentin 100 MG Capsule PO ×3 (08:27→18:05)
[2020-08-09] MEDS: metFORMIN HCl 1,000 MG Tablet 1000 MG PO ×2 (08:28→18:06)
[2020-08-09] MEDS: oxyCODONE 5 MG Tablet PO ×2 (08:30→23:12)
[2020-08-09 10:41] LABS: Bedside Glucose 116 mg/dL (70-110)
[2020-08-09 14:02] VITALS: BP 163/80; PULSE 82; RESP 18; TEMP 35.8; O2SAT 93
[2020-08-09 16:41] LABS: Bedside Glucose 73 mg/dL (70-110)
[2020-08-09 18:08] VITALS: BP 163/80; PULSE 82
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
[2020-08-09 21:26] LABS: Bedside Glucose 122 mg/dL (70-110)
[2020-08-09] MEDS: Dicyclomine 10 MG Capsule 20 MG PO (23:06)
[2020-08-09] MEDS: Atorvastatin Calcium 10 MG Tablet PO (23:07)
[2020-08-09] MEDS: amLODIPine 5 MG Tablet PO (23:08)
[2020-08-09] MEDS: MELATONIN 3 MG TABLET PO (23:09)
[2020-08-10 05:00] VITALS: BP 167/71; PULSE 76; RESP 18; TEMP 36.6; O2SAT 92
[2020-08-10 06:25] VITALS: BP 167/71; PULSE 76
[2020-08-10] MEDS: Acetaminophen 500 MG Tablet 1000 MG PO ×3 (06:25→22:46)
[2020-08-10] MEDS: Enoxaparin 40 MG/0.4 ML Syringe SC (06:25)
[2020-08-10] MEDS: DULoxetine Hcl 60 MG Capsule PO (06:25)
[2020-08-10] MEDS: Dicyclomine 10 MG Capsule 20 MG PO ×4 (06:25→22:48)
[2020-08-10] MEDS: Metoprolol Tartrate 50 MG Tablet PO ×2 (06:25→17:09)
[2020-08-10] MEDS: Menthol/Lanolin/Calamine/Znox 113 GM Tube 1 APPLIC TOPICAL ×2 (06:26→17:10)
[2020-08-10] MEDS: Nystatin Powder 15gm Bottle 1 APPLIC TOPICAL ×2 (06:26→17:10)
[2020-08-10 06:30] LABS: Bedside Glucose 98 mg/dL (70-110)
[2020-08-10] MEDS: Gabapentin 100 MG Capsule PO ×3 (07:55→17:08)
[2020-08-10] MEDS: Aspirin E.C. 81 MG Tablet PO (07:55)
[2020-08-10] MEDS: Iron Polysaccharide Complex 150 MG CAPSULE PO (07:55)
[2020-08-10] MEDS: metFORMIN HCl 1,000 MG Tablet 1000 MG PO ×2 (07:55→17:08)
[2020-08-10] MEDS: oxyCODONE 5 MG Tablet PO (08:59)
[2020-08-10] MEDS: Lidocaine 5% Patch 2 PATCH TOPICAL (09:00)
[2020-08-10 10:00] VITALS: PULSE 72; O2SAT 96
[2020-08-10 10:56] LABS: Bedside Glucose 122 mg/dL (70-110)
[2020-08-10 13:38] VITALS: BP 117/59; PULSE 73; RESP 16; TEMP 35.9; O2SAT 95
[2020-08-10 16:25] LABS: Bedside Glucose 109 mg/dL (70-110)
[2020-08-10 17:09] VITALS: PULSE 73
[2020-08-10 21:11] LABS: Bedside Glucose 147 mg/dL (70-110)
[2020-08-10] MEDS: Atorvastatin Calcium 10 MG Tablet PO (22:45)
[2020-08-10] MEDS: amLODIPine 5 MG Tablet PO (22:47)
[2020-08-10] MEDS: MELATONIN 3 MG TABLET PO (22:47)
[2020-08-11] MEDS: Ondansetron ODT 4 MG Tablet PO (04:37)
--- NOTE | 2020-08-11 04:41 | NURSING ---
Patient c/o feeling nauseated given zofran per patient request. States, nausea my be connected to stomach problem.
[2020-08-11 05:00] VITALS: BP 147/76; PULSE 65; RESP 16; TEMP 36.9; O2SAT 98
[2020-08-11 06:26] LABS: Bedside Glucose 144 mg/dL (70-110)
[2020-08-11 06:32] VITALS: BP 147/76; PULSE 65
[2020-08-11] MEDS: Metoprolol Tartrate 50 MG Tablet PO ×2 (06:32→17:32)
[2020-08-11] MEDS: DULoxetine Hcl 60 MG Capsule PO (06:32)
[2020-08-11] MEDS: Acetaminophen 500 MG Tablet 1000 MG PO ×3 (06:33→22:10)
[2020-08-11] MEDS: Dicyclomine 10 MG Capsule 20 MG PO ×4 (06:33→22:09)
[2020-08-11] MEDS: Menthol/Lanolin/Calamine/Znox 113 GM Tube 1 APPLIC TOPICAL ×2 (06:35→17:33)
[2020-08-11] MEDS: Nystatin Powder 15gm Bottle 1 APPLIC TOPICAL ×2 (06:35→17:33)
[2020-08-11] MEDS: Enoxaparin 40 MG/0.4 ML Syringe SC (06:36)
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
[2020-08-11] MEDS: Iron Polysaccharide Complex 150 MG CAPSULE PO (08:23)
[2020-08-11] MEDS: Gabapentin 100 MG Capsule PO ×3 (08:23→17:32)
[2020-08-11] MEDS: Aspirin E.C. 81 MG Tablet PO (08:23)
[2020-08-11] MEDS: metFORMIN HCl 1,000 MG Tablet 1000 MG PO ×2 (08:24→17:31)
[2020-08-11] MEDS: oxyCODONE 5 MG Tablet PO (08:27)
[2020-08-11] MEDS: Lidocaine 5% Patch 2 PATCH TOPICAL (08:39)
[2020-08-11 10:55] LABS: Bedside Glucose 165 mg/dL (70-110)
[2020-08-11 13:38] VITALS: BP 131/52; PULSE 65; RESP 16; TEMP 35.7; O2SAT 96
[2020-08-11 16:36] LABS: Bedside Glucose 112 mg/dL (70-110)
[2020-08-11 17:32] VITALS: BP 131/52; PULSE 65
[2020-08-11] MEDS: Atorvastatin Calcium 10 MG Tablet PO (22:09)
[2020-08-11 22:10] LABS: Bedside Glucose 161 mg/dL (70-110)
[2020-08-11] MEDS: amLODIPine 5 MG Tablet PO (22:11)
[2020-08-11] MEDS: MELATONIN 3 MG TABLET PO (22:11)
[2020-08-11 22:30] VITALS: PULSE 65; RESP 16; O2SAT 97
[2020-08-12 05:00] VITALS: BP 147/70; PULSE 75; RESP 16; TEMP 37.2; O2SAT 94
[2020-08-12 06:12] VITALS: BP 147/70; PULSE 75
[2020-08-12] MEDS: Metoprolol Tartrate 50 MG Tablet PO ×2 (06:12→17:15)
[2020-08-12] MEDS: DULoxetine Hcl 60 MG Capsule PO (06:12)
[2020-08-12] MEDS: Enoxaparin 40 MG/0.4 ML Syringe SC (06:12)
[2020-08-12] MEDS: Acetaminophen 500 MG Tablet 1000 MG PO ×3 (06:13→21:22)
[2020-08-12] MEDS: Dicyclomine 10 MG Capsule 20 MG PO ×4 (06:13→21:21)
[2020-08-12] MEDS: Nystatin Powder 15gm Bottle 1 APPLIC TOPICAL ×2 (06:14→17:15)
[2020-08-12] MEDS: Menthol/Lanolin/Calamine/Znox 113 GM Tube 1 APPLIC TOPICAL ×2 (06:15→17:15)
[2020-08-12] MEDS: Ondansetron ODT 4 MG Tablet PO (06:19)
--- NOTE | 2020-08-12 06:21 | NURSING ---
Given zofran this am for nausea had a one time episode 100 ml clear liquid.
[2020-08-12 06:46] LABS: Bedside Glucose 137 mg/dL (70-110)
[2020-08-12] MEDS: Gabapentin 100 MG Capsule PO ×3 (08:54→17:14)
[2020-08-12] MEDS: Aspirin E.C. 81 MG Tablet PO (08:55)
[2020-08-12] MEDS: metFORMIN HCl 1,000 MG Tablet 1000 MG PO ×2 (08:55→17:15)
[2020-08-12] MEDS: Iron Polysaccharide Complex 150 MG CAPSULE PO (08:55)
[2020-08-12] MEDS: Lidocaine 5% Patch 2 PATCH TOPICAL (08:56)
[2020-08-12] MEDS: oxyCODONE 5 MG Tablet PO ×2 (08:59→15:54)
[2020-08-12 10:00] VITALS: PULSE 69; O2SAT 93
[2020-08-12 10:55] LABS: Bedside Glucose 150 mg/dL (70-110)
[2020-08-12 14:00] VITALS: BP 123/68; PULSE 79; RESP 18; TEMP 36.9; O2SAT 95
[2020-08-12 16:45] LABS: Bedside Glucose 113 mg/dL (70-110)
[2020-08-12 17:15] VITALS: PULSE 79
[2020-08-12] MEDS: Atorvastatin Calcium 10 MG Tablet PO (21:21)
[2020-08-12] MEDS: MELATONIN 3 MG TABLET PO (21:21)
[2020-08-12] MEDS: amLODIPine 5 MG Tablet PO (21:22)
[2020-08-12 21:46] LABS: Bedside Glucose 158 mg/dL (70-110)
[2020-08-13 05:00] VITALS: BP 130/51; PULSE 71; RESP 16; TEMP 37.4; O2SAT 92
[2020-08-13] MEDS: Dicyclomine 10 MG Capsule 20 MG PO ×4 (06:13→22:13)
[2020-08-13] MEDS: DULoxetine Hcl 60 MG Capsule PO (06:13)
[2020-08-13] MEDS: Acetaminophen 500 MG Tablet 1000 MG PO ×3 (06:13→22:13)
[2020-08-13 06:14] VITALS: BP 130/51; PULSE 71
[2020-08-13] MEDS: Enoxaparin 40 MG/0.4 ML Syringe SC (06:14)
[2020-08-13] MEDS: Metoprolol Tartrate 50 MG Tablet PO ×2 (06:14→17:19)
[2020-08-13] MEDS: Menthol/Lanolin/Calamine/Znox 113 GM Tube 1 APPLIC TOPICAL ×2 (06:18→17:20)
[2020-08-13] MEDS: Nystatin Powder 15gm Bottle 1 APPLIC TOPICAL ×2 (06:18→17:20)
[2020-08-13 06:45] LABS: Bedside Glucose 138 mg/dL (70-110)
[2020-08-13 07:54] LABS: Absolute Lymphocyte Count 1.25 X10^3/uL (0.83-4.51); Absolute Neutrophil Count 3.6 X10^3/uL (2.0-7.7); Basophil# 0.03 X10^3/uL; Basophil% 0.5 % (0-1); Eosinophil# 0.31 X10^3/uL; Eosinophils% 5.4 % (0-5); Hematocrit 35.8 % (37-47); Hemoglobin 10.4 g/dL (12.0-15.0); Lymphocyte # 1.25 X10^3/ul (4.0); Lymphocyte % 21.9 % (19-41); Mean Corp Hgb Conc 29.1 g/dL (32-36); Mean Corpuscular Hgb 28.1 pg (27.0-32.0); Mean Corpuscular Volume 96.8 fL (81-99); Mean Platelet Vol. 10.8 fl (6.2-12.0); Monocyte# 0.48 X10^3/uL; Monocyte% 8.4 % (0-10); NRBC Flagged by Analyzer 0 % (0-5); Neutrophil # 3.63 X10^3/uL (2.7-7.7); Neutrophil % 63.5 % (47-70); Platelet Count 248 K/mm3 (150-450); RBC Distribution Width CV 15.3 % (11.6-14.6); White Blood Count 5.7 K/mm3 (4.4-11.0)
[2020-08-13 08:06] LABS: Anion Gap 7 (5-15); BUN 22 mg/dL (7-18); BUN/Creat Ratio 25.6 RATIO (10-20); Calcium,Total 9.1 mg/dL (8.5-10.1); Chloride 107 mmol/L (98-107); Creatinine, Serum 0.86 mg/dL (0.55-1.02); EST Glomerular Filtration Rate 69 mL/min (>60); Est Glom Filt Rate - Afr Amer 84 mL/min (>60); Estimated Creatinine Clearance 63.61 ml/min; Glucose 133 mg/dL (74-106); Potassium 4.3 mmol/L (3.5-5.1); Sodium Level 139 mmol/L (136-145)
[2020-08-13] MEDS: Aspirin E.C. 81 MG Tablet PO (08:49)
[2020-08-13] MEDS: Iron Polysaccharide Complex 150 MG CAPSULE PO (08:49)
[2020-08-13] MEDS: Gabapentin 100 MG Capsule PO ×3 (08:49→17:19)
[2020-08-13] MEDS: metFORMIN HCl 1,000 MG Tablet 1000 MG PO ×2 (08:49→17:19)
[2020-08-13] MEDS: oxyCODONE 5 MG Tablet PO (08:52)
[2020-08-13 11:31] LABS: Bedside Glucose 149 mg/dL (70-110)
[2020-08-13 13:52] VITALS: BP 114/60; PULSE 72; RESP 17; TEMP 36.3; O2SAT 93
[2020-08-13 16:26] LABS: Bedside Glucose 105 mg/dL (70-110)
[2020-08-13 17:19] VITALS: PULSE 72
[2020-08-13 21:30] LABS: Bedside Glucose 153 mg/dL (70-110)
[2020-08-13] MEDS: amLODIPine 5 MG Tablet PO (22:13)
[2020-08-13] MEDS: Atorvastatin Calcium 10 MG Tablet PO (22:14)
[2020-08-13] MEDS: MELATONIN 3 MG TABLET PO (22:14)
[2020-08-13 22:15] VITALS: PULSE 70; RESP 16; O2SAT 94
[2020-08-14 05:00] VITALS: BP 161/68; PULSE 70; RESP 16; TEMP 36.7; O2SAT 92
[2020-08-14 06:26] LABS: Bedside Glucose 126 mg/dL (70-110)
[2020-08-14 06:44] VITALS: BP 161/68; PULSE 70
[2020-08-14] MEDS: Dicyclomine 10 MG Capsule 20 MG PO ×4 (06:44→22:16)
[2020-08-14] MEDS: Acetaminophen 500 MG Tablet 1000 MG PO (06:44)
[2020-08-14] MEDS: Metoprolol Tartrate 50 MG Tablet PO ×2 (06:44→17:58)
[2020-08-14] MEDS: DULoxetine Hcl 60 MG Capsule PO (06:44)
[2020-08-14] MEDS: Enoxaparin 40 MG/0.4 ML Syringe SC (06:48)
[2020-08-14] MEDS: Ondansetron ODT 4 MG Tablet PO (06:52)
[2020-08-14] MEDS: Menthol/Lanolin/Calamine/Znox 113 GM Tube 1 APPLIC TOPICAL ×2 (06:54→17:59)
[2020-08-14] MEDS: Nystatin Powder 15gm Bottle 1 APPLIC TOPICAL ×2 (06:55→17:59)
--- NOTE | 2020-08-14 06:56 | NURSING ---
Given zofran this AM for nausea had 50 cc clear liquid with a 10 mg Bentyl capsule in it.
[2020-08-14] MEDS: Aspirin E.C. 81 MG Tablet PO (08:50)
[2020-08-14] MEDS: metFORMIN HCl 1,000 MG Tablet 1000 MG PO ×2 (08:50→17:56)
[2020-08-14] MEDS: Iron Polysaccharide Complex 150 MG CAPSULE PO (09:50)
[2020-08-14] MEDS: Gabapentin 100 MG Capsule PO ×3 (10:15→17:55)
[2020-08-14 10:56] LABS: Bedside Glucose 161 mg/dL (70-110)
[2020-08-14 11:00] VITALS: PULSE 78; RESP 16; O2SAT 95
--- NOTE | 2020-08-14 12:16 | NURSING ---
Notified Dr. Baptiste that pt requesting Lantus to be decreased to 25 units @ HS from the current 45 units. Also requested to have ott changed. Received order for Lantus 25 units @ HS and change ott tomorrow.
[2020-08-14 14:43] VITALS: BP 124/60; PULSE 69; RESP 15; TEMP 36.7; O2SAT 93
[2020-08-14 16:16] LABS: Bedside Glucose 158 mg/dL (70-110)
[2020-08-14 17:58] VITALS: BP 124/60; PULSE 69
[2020-08-14 21:31] LABS: Bedside Glucose 163 mg/dL (70-110)
[2020-08-14] MEDS: Atorvastatin Calcium 10 MG Tablet PO (22:16)
[2020-08-14] MEDS: amLODIPine 5 MG Tablet PO (22:16)
[2020-08-14] MEDS: MELATONIN 3 MG TABLET PO (22:32)
[2020-08-15 05:00] VITALS: BP 122/63; PULSE 68; RESP 16; TEMP 36.8; O2SAT 95
[2020-08-15] MEDS: Acetaminophen 500 MG Tablet 1000 MG PO ×3 (05:57→21:38)
[2020-08-15 05:58] VITALS: BP 122/63; PULSE 68
[2020-08-15] MEDS: Metoprolol Tartrate 50 MG Tablet PO ×2 (05:58→17:29)
[2020-08-15] MEDS: Dicyclomine 10 MG Capsule 20 MG PO ×4 (05:58→21:38)
[2020-08-15] MEDS: DULoxetine Hcl 60 MG Capsule PO (05:59)
[2020-08-15] MEDS: Enoxaparin 40 MG/0.4 ML Syringe SC (06:00)
[2020-08-15] MEDS: Menthol/Lanolin/Calamine/Znox 113 GM Tube 1 APPLIC TOPICAL ×2 (06:03→17:30)
[2020-08-15] MEDS: Nystatin Powder 15gm Bottle 1 APPLIC TOPICAL ×2 (06:03→17:30)
[2020-08-15 06:21] LABS: Bedside Glucose 138 mg/dL (70-110)
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
[2020-08-15] MEDS: Aspirin E.C. 81 MG Tablet PO (08:25)
[2020-08-15] MEDS: Iron Polysaccharide Complex 150 MG CAPSULE PO (08:26)
[2020-08-15] MEDS: Gabapentin 100 MG Capsule PO ×3 (08:26→17:28)
[2020-08-15] MEDS: metFORMIN HCl 1,000 MG Tablet 1000 MG PO ×2 (08:26→17:29)
[2020-08-15] MEDS: oxyCODONE 5 MG Tablet PO (08:28)
[2020-08-15] MEDS: Lidocaine 5% Patch 2 PATCH TOPICAL (09:21)
[2020-08-15 11:10] LABS: Bedside Glucose 172 mg/dL (70-110)
[2020-08-15 14:17] VITALS: BP 113/76; PULSE 72; RESP 16; TEMP 36.5; O2SAT 96
[2020-08-15 17:00] LABS: Bedside Glucose 126 mg/dL (70-110)
[2020-08-15 17:29] VITALS: PULSE 72
--- NOTE | 2020-08-15 18:57 | NURSING ---
N.O. Catheter d/c'd, start voiding trials, pt tolerated catheter discontinuation well, catheter tip intact
[2020-08-15 21:26] LABS: Bedside Glucose 166 mg/dL (70-110)
[2020-08-15] MEDS: amLODIPine 5 MG Tablet PO (21:37)
[2020-08-15] MEDS: Atorvastatin Calcium 10 MG Tablet PO (21:38)
[2020-08-15] MEDS: MELATONIN 3 MG TABLET PO (21:38)
[2020-08-16 04:26] VITALS: BP 145/72; PULSE 77; RESP 16; TEMP 36.5; O2SAT 93
[2020-08-16] MEDS: Enoxaparin 40 MG/0.4 ML Syringe SC (04:31)
[2020-08-16] MEDS: Dicyclomine 10 MG Capsule 20 MG PO ×4 (04:31→21:26)
[2020-08-16 04:32] VITALS: BP 145/72; PULSE 77
[2020-08-16] MEDS: Acetaminophen 500 MG Tablet 1000 MG PO (04:32)
[2020-08-16] MEDS: Metoprolol Tartrate 50 MG Tablet PO ×2 (04:32→17:56)
[2020-08-16] MEDS: DULoxetine Hcl 60 MG Capsule PO (04:32)
[2020-08-16] MEDS: Menthol/Lanolin/Calamine/Znox 113 GM Tube 1 APPLIC TOPICAL ×2 (04:33→17:57)
[2020-08-16] MEDS: Nystatin Powder 15gm Bottle 1 APPLIC TOPICAL ×2 (04:38→17:57)
[2020-08-16 06:41] LABS: Bedside Glucose 149 mg/dL (70-110)
[2020-08-16] MEDS: Iron Polysaccharide Complex 150 MG CAPSULE PO (09:10)
[2020-08-16] MEDS: Gabapentin 100 MG Capsule PO ×3 (09:10→17:56)
[2020-08-16] MEDS: metFORMIN HCl 1,000 MG Tablet 1000 MG PO ×2 (09:11→16:37)
[2020-08-16] MEDS: Aspirin E.C. 81 MG Tablet PO (09:11)
[2020-08-16] MEDS: oxyCODONE 5 MG Tablet PO (09:14)
[2020-08-16] MEDS: Lidocaine 5% Patch 2 PATCH TOPICAL (10:48)
[2020-08-16 11:01] LABS: Bedside Glucose 172 mg/dL (70-110)
[2020-08-16 14:00] VITALS: PULSE 72; RESP 18; O2SAT 91
[2020-08-16 14:54] VITALS: BP 128/66; PULSE 73; RESP 14; TEMP 36.7; O2SAT 99
[2020-08-16 16:26] LABS: Bedside Glucose 108 mg/dL (70-110)
[2020-08-16 17:56] VITALS: BP 128/66; PULSE 73
--- NOTE | 2020-08-16 18:24 | NURSING ---
pt and therapy asking about getting immobilizer off of pt right leg due to it hindering pt in walking. EDUIN ALLEN NEEDS TO BE CALLED TO SEE IF MORE X RAYS NEED DONE AND WHEN IMMOBILIZER CAN COME OFF. RN AWARE.
[2020-08-16] MEDS: MELATONIN 3 MG TABLET PO (21:26)
[2020-08-16] MEDS: Atorvastatin Calcium 10 MG Tablet PO (21:26)
[2020-08-16] MEDS: amLODIPine 5 MG Tablet PO (21:26)
[2020-08-16 21:55] LABS: Bedside Glucose 143 mg/dL (70-110)
[2020-08-17 04:53] VITALS: BP 127/56; PULSE 83; RESP 16; TEMP 36.7; O2SAT 92
[2020-08-17 04:56] VITALS: BP 127/56; PULSE 83
[2020-08-17] MEDS: Acetaminophen 500 MG Tablet 1000 MG PO ×2 (04:56→13:28)
[2020-08-17] MEDS: Dicyclomine 10 MG Capsule 20 MG PO ×4 (04:56→21:38)
[2020-08-17] MEDS: Metoprolol Tartrate 50 MG Tablet PO ×2 (04:56→17:41)
[2020-08-17] MEDS: DULoxetine Hcl 60 MG Capsule PO (04:56)
[2020-08-17] MEDS: Enoxaparin 40 MG/0.4 ML Syringe SC (04:57)
[2020-08-17] MEDS: Menthol/Lanolin/Calamine/Znox 113 GM Tube 1 APPLIC TOPICAL ×2 (05:00→17:44)
[2020-08-17] MEDS: Nystatin Powder 15gm Bottle 1 APPLIC TOPICAL ×2 (05:00→17:45)
[2020-08-17 06:21] LABS: Bedside Glucose 171 mg/dL (70-110)
[2020-08-17] MEDS: Aspirin E.C. 81 MG Tablet PO (09:04)
[2020-08-17] MEDS: Iron Polysaccharide Complex 150 MG CAPSULE PO (09:04)
[2020-08-17] MEDS: metFORMIN HCl 1,000 MG Tablet 1000 MG PO ×2 (09:04→16:09)
[2020-08-17] MEDS: Gabapentin 100 MG Capsule PO ×3 (09:04→17:41)
[2020-08-17] MEDS: Lidocaine 5% Patch 2 PATCH TOPICAL (09:04)
[2020-08-17] MEDS: oxyCODONE 5 MG Tablet PO (09:04)
[2020-08-17] MEDS: Ondansetron ODT 4 MG Tablet PO (09:11)
--- NOTE | 2020-08-17 09:13 | PT ---
Spoke with nurse of Dr. Coates regarding pt's knee immobilizer. Per physician, will call back with further instruction regarding knee immobilizer.
[2020-08-17 11:00] LABS: Bedside Glucose 158 mg/dL (70-110)
--- NOTE | 2020-08-17 12:49 | PT ---
Spoke with Dr. Coates's office. Per physician, they are no longer following pt, as pt wanted to seek ortho care closer to home. Will set-up appt for ortho consult.
[2020-08-17 13:50] VITALS: BP 139/74; PULSE 81; RESP 24; TEMP 36.2; O2SAT 97
--- NOTE | 2020-08-17 14:01 | NURSING ---
Addendum entered by Nicole Machado 08/17/20 14:52: Dr Reyes's assistants here to assess pt. Addendum entered by Renea Laughlin 08/17/20 14:39: Dr. Reyes's office called back and is going to be in later today to visit patient, N.O. xray to right patellar, lateral, A/P and sunrise view Original Note: Dr. Coates's office was called today to discuss immobilizer order, Dr. Coates's office told staff that he would not do any orders, he is dropping her as a pt because she said she wanted to consult someone closer to home. Dr. Paniagua updated and n.o. to consult Amy per pt request. Dr. Reyes's office called and updated on clinical situation and request for consult. Therapy is requesting immobilizer be d/c'd if possible and allowance of knee exercises if indicated. Mary's office said they would call us back and let us know if Dr. Reyes is willing to consult.
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
[2020-08-17 16:35] LABS: Bedside Glucose 126 mg/dL (70-110)
[2020-08-17 17:41] VITALS: PULSE 81
[2020-08-17] MEDS: MELATONIN 3 MG TABLET PO (21:38)
[2020-08-17] MEDS: Atorvastatin Calcium 10 MG Tablet PO (21:38)
[2020-08-17] MEDS: amLODIPine 5 MG Tablet PO (21:38)
[2020-08-17 21:43] VITALS: PULSE 60; RESP 16; O2SAT 92
[2020-08-17 21:46] LABS: Bedside Glucose 158 mg/dL (70-110)
[2020-08-18 05:00] VITALS: BP 120/58; PULSE 65; RESP 16; TEMP 36.3; O2SAT 92
[2020-08-18 05:42] VITALS: BP 120/58; PULSE 65
[2020-08-18] MEDS: Dicyclomine 10 MG Capsule 20 MG PO ×4 (05:42→20:56)
[2020-08-18] MEDS: Metoprolol Tartrate 50 MG Tablet PO ×2 (05:42→17:44)
[2020-08-18] MEDS: DULoxetine Hcl 60 MG Capsule PO (05:42)
[2020-08-18] MEDS: Enoxaparin 40 MG/0.4 ML Syringe SC (05:43)
[2020-08-18] MEDS: Menthol/Lanolin/Calamine/Znox 113 GM Tube 1 APPLIC TOPICAL ×2 (05:45→17:45)
[2020-08-18] MEDS: Nystatin Powder 15gm Bottle 1 APPLIC TOPICAL ×2 (05:45→17:45)
[2020-08-18 06:36] LABS: Bedside Glucose 149 mg/dL (70-110)
[2020-08-18] MEDS: metFORMIN HCl 1,000 MG Tablet 1000 MG PO ×2 (08:15→16:34)
[2020-08-18] MEDS: Aspirin E.C. 81 MG Tablet PO (08:15)
[2020-08-18] MEDS: Gabapentin 100 MG Capsule PO ×3 (08:15→17:44)
[2020-08-18] MEDS: Iron Polysaccharide Complex 150 MG CAPSULE PO (08:15)
[2020-08-18] MEDS: Lidocaine 5% Patch 2 PATCH TOPICAL (09:26)
[2020-08-18] MEDS: oxyCODONE 5 MG Tablet PO (09:27)
[2020-08-18 10:00] VITALS: PULSE 74; RESP 18; O2SAT 96
--- NOTE | 2020-08-18 10:29 | NURSING ---
PT WILL BE GETTING A T ROM BRACE FOR RIGHT LEG/KNEE. ONCE PT HAS BRACE PT CAN SHOWER. RN AWARE
[2020-08-18 11:16] LABS: Bedside Glucose 155 mg/dL (70-110)
--- NOTE | 2020-08-18 13:13 | NURSING ---
PT NOW HAS THE T ROM BRACE FOR HER RIGHT LEG. BRACE CAN BE OFF AT NIGHT AND SHOWER. BUT WHILE UP AND AWAKE IT IS TO BE ON. THIS NURSE CALLED OFFICE AND LEFT MESSAGE THAT THERAPY AND PT WOULD LIKE TO KNOW WHEN PT CAN START WEARING HER OWN SHOES. RN AWARE.
[2020-08-18] MEDS: Acetaminophen 500 MG Tablet 1000 MG PO ×2 (13:19→20:58)
[2020-08-18 14:29] VITALS: BP 116/64; PULSE 76; RESP 16; TEMP 36.4; O2SAT 94
--- NOTE | 2020-08-18 15:32 | NURSING ---
CALLED BACK AND STATED THAT PT CAN USE A STURDY TENNIS SHOE ON THE RIGHT FOOT BUT STILL BE WEIGHT BEARING ON HEEL ON THE LEFT FOOT AND KEEP THE SURGICAL SHOE ON. STATED SHE MIGHT GET XRAYS NEXT WEEK ON FEET. RN AWARE
[2020-08-18 16:30] LABS: Bedside Glucose 145 mg/dL (70-110)
--- NOTE | 2020-08-18 16:41 | NURSING ---
UPDATED AT VISIT
[2020-08-18 17:44] VITALS: BP 116/64; PULSE 76
[2020-08-18] MEDS: Atorvastatin Calcium 10 MG Tablet PO (20:57)
[2020-08-18] MEDS: amLODIPine 5 MG Tablet PO (20:58)
[2020-08-18] MEDS: Loperamide 2 MG Capsule PO (21:02)
[2020-08-18] MEDS: MELATONIN 3 MG TABLET PO (21:02)
[2020-08-18 21:45] LABS: Bedside Glucose 179 mg/dL (70-110)
[2020-08-19 05:00] VITALS: BP 142/65; PULSE 70; RESP 18; TEMP 36.6; O2SAT 97
[2020-08-19] MEDS: Enoxaparin 40 MG/0.4 ML Syringe SC (06:42)
[2020-08-19] MEDS: Acetaminophen 500 MG Tablet 1000 MG PO ×3 (06:42→22:46)
[2020-08-19 06:43] VITALS: BP 142/65; PULSE 70
[2020-08-19] MEDS: Menthol/Lanolin/Calamine/Znox 113 GM Tube 1 APPLIC TOPICAL ×2 (06:43→17:30)
[2020-08-19] MEDS: DULoxetine Hcl 60 MG Capsule PO (06:43)
[2020-08-19] MEDS: Nystatin Powder 15gm Bottle 1 APPLIC TOPICAL ×2 (06:43→17:30)
[2020-08-19] MEDS: Dicyclomine 10 MG Capsule 20 MG PO ×4 (06:43→22:46)
[2020-08-19] MEDS: Metoprolol Tartrate 50 MG Tablet PO ×2 (06:43→17:29)
[2020-08-19 07:00] LABS: Bedside Glucose 204 mg/dL (70-110)
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
[2020-08-19] MEDS: Gabapentin 100 MG Capsule PO ×3 (08:24→17:29)
[2020-08-19] MEDS: Iron Polysaccharide Complex 150 MG CAPSULE PO (08:24)
[2020-08-19] MEDS: metFORMIN HCl 1,000 MG Tablet 1000 MG PO ×2 (08:24→17:29)
[2020-08-19] MEDS: Aspirin E.C. 81 MG Tablet PO (08:24)
[2020-08-19] MEDS: oxyCODONE 5 MG Tablet PO ×2 (08:28→22:49)
[2020-08-19] MEDS: Lidocaine 5% Patch 2 PATCH TOPICAL (10:36)
[2020-08-19 11:01] LABS: Bedside Glucose 198 mg/dL (70-110)
[2020-08-19 14:19] VITALS: BP 135/58; PULSE 78; RESP 16; TEMP 36; O2SAT 95
[2020-08-19 16:55] LABS: Bedside Glucose 153 mg/dL (70-110)
[2020-08-19 17:29] VITALS: PULSE 78
[2020-08-19 21:41] LABS: Bedside Glucose 193 mg/dL (70-110)
[2020-08-19] MEDS: amLODIPine 5 MG Tablet PO (22:46)
[2020-08-19] MEDS: Atorvastatin Calcium 10 MG Tablet PO (22:46)
[2020-08-19] MEDS: MELATONIN 3 MG TABLET PO (22:46)
[2020-08-20] MEDS: DULoxetine Hcl 60 MG Capsule PO (04:55)
[2020-08-20 04:56] VITALS: BP 112/47; PULSE 73
[2020-08-20] MEDS: Metoprolol Tartrate 50 MG Tablet PO ×2 (04:56→17:18)
[2020-08-20] MEDS: Acetaminophen 500 MG Tablet 1000 MG PO (04:56)
[2020-08-20] MEDS: Enoxaparin 40 MG/0.4 ML Syringe SC (04:57)
[2020-08-20 05:00] VITALS: BP 112/47; PULSE 73; RESP 16; TEMP 36.3; O2SAT 96
[2020-08-20] MEDS: Menthol/Lanolin/Calamine/Znox 113 GM Tube 1 APPLIC TOPICAL ×2 (05:01→17:18)
[2020-08-20 06:40] LABS: Bedside Glucose 189 mg/dL (70-110)
[2020-08-20 06:48] LABS: Absolute Lymphocyte Count 1.42 X10^3/uL (0.83-4.51); Absolute Neutrophil Count 4.4 X10^3/uL (2.0-7.7); Basophil# 0.03 X10^3/uL; Basophil% 0.4 % (0-1); Eosinophil# 0.37 X10^3/uL; Eosinophils% 5.4 % (0-5); Hematocrit 35.9 % (37-47); Hemoglobin 10.6 g/dL (12.0-15.0); Lymphocyte # 1.42 X10^3/ul (0.83-4.51); Lymphocyte % 20.9 % (19-41); Mean Corp Hgb Conc 29.5 g/dL (32-36); Mean Corpuscular Volume 94.7 fL (81-99); Monocyte# 0.57 X10^3/uL; Monocyte% 8.4 % (0-10); NRBC Flagged by Analyzer 0 % (0-5); Neutrophil % 64.6 % (47-70); Platelet Count 223 K/mm3 (150-450); RBC Distribution Width CV 15.5 % (11.6-14.6); RBC Distribution Width SD 54.2 fl (35.1-43.9); Red Blood Count 3.79 M/mm3 (4.2-5.4); White Blood Count 6.8 K/mm3 (4.4-11.0)
[2020-08-20 07:13] LABS: Anion Gap 5 (5-15); BUN 23 mg/dL (7-18); BUN/Creat Ratio 27.2 RATIO (10-20); Calcium,Total 9.2 mg/dL (8.5-10.1); Chloride 107 mmol/L (98-107); Creatinine, Serum 0.85 mg/dL (0.55-1.02); EST Glomerular Filtration Rate 71 mL/min (>60); Est Glom Filt Rate - Afr Amer 85 mL/min (>60); Estimated Creatinine Clearance 64.36 ml/min; Glucose 193 mg/dL (74-106); Potassium 4.2 mmol/L (3.5-5.1); Sodium Level 139 mmol/L (136-145)
[2020-08-20] MEDS: Dicyclomine 10 MG Capsule 20 MG PO ×4 (08:11→21:47)
[2020-08-20] MEDS: Gabapentin 100 MG Capsule PO ×3 (08:11→17:18)
[2020-08-20] MEDS: Aspirin E.C. 81 MG Tablet PO (08:12)
[2020-08-20] MEDS: Iron Polysaccharide Complex 150 MG CAPSULE PO (08:12)
[2020-08-20] MEDS: metFORMIN HCl 1,000 MG Tablet 1000 MG PO ×2 (08:13→16:12)
[2020-08-20] MEDS: oxyCODONE 5 MG Tablet PO ×2 (09:06→21:52)
[2020-08-20] MEDS: Nystatin Powder 15gm Bottle 1 APPLIC TOPICAL ×2 (09:46→17:19)
[2020-08-20] MEDS: Lidocaine 5% Patch 2 PATCH TOPICAL (09:47)
[2020-08-20 10:00] VITALS: PULSE 70; RESP 18; O2SAT 94
[2020-08-20 11:16] LABS: Bedside Glucose 195 mg/dL (70-110)
--- NOTE | 2020-08-20 14:13 | NURSING ---
FAMILY UPDATED BY PT.
[2020-08-20 15:50] VITALS: BP 134/92; PULSE 77; RESP 16; TEMP 36.6; O2SAT 91
[2020-08-20 17:00] LABS: Bedside Glucose 135 mg/dL (70-110)
[2020-08-20 17:18] VITALS: BP 134/92; PULSE 77
[2020-08-20] MEDS: MELATONIN 3 MG TABLET PO (21:49)
[2020-08-20] MEDS: amLODIPine 5 MG Tablet PO (21:49)
[2020-08-20] MEDS: Atorvastatin Calcium 10 MG Tablet PO (21:49)
[2020-08-20] MEDS: Loperamide 2 MG Capsule PO (21:51)
[2020-08-20 22:40] LABS: Bedside Glucose 178 mg/dL (70-110)
[2020-08-21 05:00] VITALS: BP 143/69; PULSE 77; RESP 18; TEMP 36.6; O2SAT 88
[2020-08-21 06:12] VITALS: BP 143/69; PULSE 77
[2020-08-21] MEDS: DULoxetine Hcl 60 MG Capsule PO (06:12)
[2020-08-21] MEDS: Enoxaparin 40 MG/0.4 ML Syringe SC (06:12)
[2020-08-21] MEDS: Metoprolol Tartrate 50 MG Tablet PO ×2 (06:12→17:20)
[2020-08-21] MEDS: Acetaminophen 500 MG Tablet 1000 MG PO (06:12)
[2020-08-21] MEDS: Menthol/Lanolin/Calamine/Znox 113 GM Tube 1 APPLIC TOPICAL ×2 (06:13→17:21)
[2020-08-21] MEDS: Dicyclomine 10 MG Capsule 20 MG PO ×4 (06:13→20:25)
[2020-08-21] MEDS: Nystatin Powder 15gm Bottle 1 APPLIC TOPICAL ×2 (06:13→20:25)
[2020-08-21] MEDS: Loperamide 2 MG Capsule PO ×2 (06:14→20:25)
[2020-08-21 06:46] LABS: Bedside Glucose 166 mg/dL (70-110)
[2020-08-21] MEDS: Iron Polysaccharide Complex 150 MG CAPSULE PO (07:40)
[2020-08-21] MEDS: Aspirin E.C. 81 MG Tablet PO (07:40)
[2020-08-21] MEDS: Gabapentin 100 MG Capsule PO ×3 (07:40→17:19)
[2020-08-21] MEDS: metFORMIN HCl 1,000 MG Tablet 1000 MG PO ×2 (07:41→16:14)
[2020-08-21] MEDS: oxyCODONE 5 MG Tablet PO (11:14)
[2020-08-21 11:16] LABS: Bedside Glucose 178 mg/dL (70-110)
--- NOTE | 2020-08-21 13:08 | NURSING ---
pt updated in room.
--- NOTE | 2020-08-21 13:48 | NURSING ---
pt asking to have lantus upped to 45 units at hs. pt stated she felt foggy and felt her blood sugar was to high. blood sugar at lunch was 178. reported to jordy mendoza
[2020-08-21 15:36] VITALS: BP 120/58; PULSE 72; RESP 14; TEMP 36; O2SAT 94
[2020-08-21 16:40] LABS: Bedside Glucose 171 mg/dL (70-110)
[2020-08-21 17:20] VITALS: BP 120/58; PULSE 72
[2020-08-21] MEDS: Atorvastatin Calcium 10 MG Tablet PO (20:24)
[2020-08-21] MEDS: MELATONIN 3 MG TABLET PO (20:24)
[2020-08-21] MEDS: amLODIPine 5 MG Tablet PO (20:24)
[2020-08-21 21:20] LABS: Bedside Glucose 197 mg/dL (70-110)
[2020-08-22 05:00] VITALS: BP 149/67; PULSE 76; RESP 18; TEMP 36.6; O2SAT 91
[2020-08-22 06:21] VITALS: BP 149/67; PULSE 76
[2020-08-22 06:21] LABS: Bedside Glucose 191 mg/dL (70-110)
[2020-08-22] MEDS: Loperamide 2 MG Capsule PO (06:21)
[2020-08-22] MEDS: Enoxaparin 40 MG/0.4 ML Syringe SC (06:21)
[2020-08-22] MEDS: Dicyclomine 10 MG Capsule 20 MG PO ×4 (06:21→21:06)
[2020-08-22] MEDS: DULoxetine Hcl 60 MG Capsule PO (06:21)
[2020-08-22] MEDS: Metoprolol Tartrate 50 MG Tablet PO ×2 (06:21→17:03)
[2020-08-22] MEDS: Acetaminophen 500 MG Tablet 1000 MG PO ×2 (06:21→14:29)
[2020-08-22] MEDS: Menthol/Lanolin/Calamine/Znox 113 GM Tube 1 APPLIC TOPICAL ×2 (06:22→16:47)
[2020-08-22] MEDS: Nystatin Powder 15gm Bottle 1 APPLIC TOPICAL ×2 (06:22→16:47)
[2020-08-22] MEDS: Iron Polysaccharide Complex 150 MG CAPSULE PO (08:04)
[2020-08-22] MEDS: Gabapentin 100 MG Capsule PO ×3 (08:04→16:45)
[2020-08-22] MEDS: metFORMIN HCl 1,000 MG Tablet 1000 MG PO ×2 (08:05→16:45)
[2020-08-22] MEDS: Aspirin E.C. 81 MG Tablet PO (08:07)
[2020-08-22] MEDS: Lidocaine 5% Patch 2 PATCH TOPICAL (09:34)
[2020-08-22 10:50] LABS: Bedside Glucose 189 mg/dL (70-110)
[2020-08-22] MEDS: oxyCODONE 5 MG Tablet PO (12:09)
[2020-08-22] MEDS: Ondansetron ODT 4 MG Tablet PO (12:49)
[2020-08-22 13:57] VITALS: BP 139/76; PULSE 81; RESP 18; TEMP 36.4; O2SAT 96
[2020-08-22] MEDS: Cyanocobalamin (B12) 1,000 MCG/ML Vial 1000 MCG IM (15:07)
[2020-08-22 17:03] VITALS: PULSE 81
[2020-08-22 18:01] LABS: Bedside Glucose 162 mg/dL (70-110)
[2020-08-22 20:59] VITALS: PULSE 71; RESP 16; O2SAT 94
[2020-08-22] MEDS: Atorvastatin Calcium 10 MG Tablet PO (21:09)
[2020-08-22] MEDS: amLODIPine 5 MG Tablet PO (21:09)
[2020-08-22] MEDS: MELATONIN 3 MG TABLET PO (21:09)
[2020-08-22 21:45] LABS: Bedside Glucose 170 mg/dL (70-110)
[2020-08-23 05:00] VITALS: BP 141/58; PULSE 80; RESP 16; TEMP 36.8; O2SAT 93
[2020-08-23 06:16] VITALS: BP 141/58; PULSE 80
[2020-08-23] MEDS: DULoxetine Hcl 60 MG Capsule PO (06:16)
[2020-08-23] MEDS: Dicyclomine 10 MG Capsule 20 MG PO ×4 (06:16→21:31)
[2020-08-23] MEDS: Acetaminophen 500 MG Tablet 1000 MG PO ×3 (06:16→21:31)
[2020-08-23] MEDS: Metoprolol Tartrate 50 MG Tablet PO ×2 (06:16→17:32)
[2020-08-23] MEDS: Enoxaparin 40 MG/0.4 ML Syringe SC (06:17)
[2020-08-23] MEDS: Ondansetron ODT 4 MG Tablet PO (06:20)
[2020-08-23] MEDS: Menthol/Lanolin/Calamine/Znox 113 GM Tube 1 APPLIC TOPICAL ×2 (06:23→17:31)
[2020-08-23] MEDS: Nystatin Powder 15gm Bottle 1 APPLIC TOPICAL ×2 (06:23→17:31)
[2020-08-23 06:50] LABS: Bedside Glucose 187 mg/dL (70-110)
[2020-08-23] MEDS: Iron Polysaccharide Complex 150 MG CAPSULE PO (09:02)
[2020-08-23] MEDS: Gabapentin 100 MG Capsule PO ×3 (09:02→16:45)
[2020-08-23] MEDS: Aspirin E.C. 81 MG Tablet PO (09:02)
[2020-08-23] MEDS: metFORMIN HCl 1,000 MG Tablet 1000 MG PO ×2 (09:03→16:43)
[2020-08-23] MEDS: oxyCODONE 5 MG Tablet PO (09:11)
--- NOTE | 2020-08-23 09:14 | NURSING ---
PT STILL A LITTLE NAUSEATED BUT NOW HAS A HEADACHE DUE TO A LOT OF LOUD BANGING BELOW ROOM. ASKED MAINTENANCE AND THEY STATED THERE WAS SOME WORK BEING DONE. GAVE PT PRN PAIN MED AND OFFERED EAR PLUGS AND EYE MASK. PT THANKFUL. REPORTED TO RN
[2020-08-23] MEDS: Lidocaine 5% Patch 2 PATCH TOPICAL (11:10)
[2020-08-23 11:11] LABS: Bedside Glucose 216 mg/dL (70-110)
--- NOTE | 2020-08-23 11:51 | NURSING ---
PT NAUSEATED THIS MORNING.PRN ZOFRAN WAS GIVEN EARLIER. PT REFUSED BREAKFAST BUT BLOOD SUGAR FOR LUNCH WAS 216. BLOOD SUGARS HAVE BEEN GOING UP SLOWLY. RN AWARE AND NOTE LEFT FOR DR. HENDERSON. WILL CONTINUE TO MONITOR.
--- NOTE | 2020-08-23 13:46 | NURSING ---
family updated at visit
[2020-08-23 14:26] VITALS: BP 137/73; PULSE 79; RESP 16; TEMP 36.9; O2SAT 89
[2020-08-23 16:16] LABS: Bedside Glucose 179 mg/dL (70-110)
[2020-08-23 17:32] VITALS: BP 137/73; PULSE 79
[2020-08-23] MEDS: Atorvastatin Calcium 10 MG Tablet PO (21:31)
[2020-08-23] MEDS: amLODIPine 5 MG Tablet PO (21:32)
[2020-08-23] MEDS: MELATONIN 3 MG TABLET PO (21:32)
[2020-08-23 21:41] VITALS: RESP 18
[2020-08-23 21:41] LABS: Bedside Glucose 196 mg/dL (70-110)
[2020-08-24 05:00] VITALS: BP 114/47; PULSE 78; RESP 16; TEMP 36.4; O2SAT 90
[2020-08-24] MEDS: Menthol/Lanolin/Calamine/Znox 113 GM Tube 1 APPLIC TOPICAL ×2 (06:10→17:25)
[2020-08-24] MEDS: DULoxetine Hcl 60 MG Capsule PO (06:10)
[2020-08-24 06:13] VITALS: BP 114/47; PULSE 78
[2020-08-24] MEDS: Metoprolol Tartrate 50 MG Tablet PO ×2 (06:13→17:24)
[2020-08-24] MEDS: Enoxaparin 40 MG/0.4 ML Syringe SC (06:13)
[2020-08-24] MEDS: Acetaminophen 500 MG Tablet 1000 MG PO ×2 (06:14→13:31)
[2020-08-24] MEDS: Dicyclomine 10 MG Capsule 20 MG PO ×4 (06:14→21:19)
[2020-08-24] MEDS: Nystatin Powder 15gm Bottle 1 APPLIC TOPICAL ×2 (06:15→17:25)
[2020-08-24 06:31] LABS: Bedside Glucose 169 mg/dL (70-110)
[2020-08-24] MEDS: Iron Polysaccharide Complex 150 MG CAPSULE PO (07:53)
[2020-08-24] MEDS: Aspirin E.C. 81 MG Tablet PO (07:54)
[2020-08-24] MEDS: Gabapentin 100 MG Capsule PO ×3 (07:54→17:24)
[2020-08-24] MEDS: metFORMIN HCl 1,000 MG Tablet 1000 MG PO ×2 (07:54→17:24)
[2020-08-24] MEDS: Lidocaine 5% Patch 2 PATCH TOPICAL (09:29)
[2020-08-24] MEDS: oxyCODONE 5 MG Tablet PO (09:34)
[2020-08-24 10:56] LABS: Bedside Glucose 165 mg/dL (70-110)
[2020-08-24 14:54] VITALS: BP 121/62; PULSE 80; RESP 16; TEMP 36.3; O2SAT 94
[2020-08-24 16:36] LABS: Bedside Glucose 167 mg/dL (70-110)
[2020-08-24 17:24] VITALS: PULSE 80
[2020-08-24] MEDS: Atorvastatin Calcium 10 MG Tablet PO (21:19)
[2020-08-24] MEDS: amLODIPine 5 MG Tablet PO (21:20)
[2020-08-24] MEDS: MELATONIN 3 MG TABLET PO (21:20)
[2020-08-24] MEDS: Loperamide 2 MG Capsule PO (21:21)
[2020-08-24 21:30] LABS: Bedside Glucose 177 mg/dL (70-110)
[2020-08-25 05:00] VITALS: BP 135/59; PULSE 80; RESP 18; TEMP 36.6; O2SAT 91
[2020-08-25] MEDS: Enoxaparin 40 MG/0.4 ML Syringe SC (06:22)
[2020-08-25 06:23] VITALS: BP 135/59; PULSE 80
[2020-08-25] MEDS: Metoprolol Tartrate 50 MG Tablet PO ×2 (06:23→17:45)
[2020-08-25] MEDS: DULoxetine Hcl 60 MG Capsule PO (06:23)
[2020-08-25] MEDS: Dicyclomine 10 MG Capsule 20 MG PO ×4 (06:23→21:32)
[2020-08-25] MEDS: Loperamide 2 MG Capsule PO (06:23)
[2020-08-25] MEDS: Nystatin Powder 15gm Bottle 1 APPLIC TOPICAL ×2 (06:24→17:47)
[2020-08-25] MEDS: Acetaminophen 500 MG Tablet 1000 MG PO ×3 (06:24→21:32)
[2020-08-25 06:25] LABS: Bedside Glucose 198 mg/dL (70-110)
[2020-08-25] MEDS: metFORMIN HCl 1,000 MG Tablet 1000 MG PO ×2 (07:57→17:44)
[2020-08-25] MEDS: Aspirin E.C. 81 MG Tablet PO (07:57)
[2020-08-25] MEDS: Gabapentin 100 MG Capsule PO ×3 (07:57→17:45)
[2020-08-25] MEDS: Iron Polysaccharide Complex 150 MG CAPSULE PO (07:57)
[2020-08-25] MEDS: Lidocaine 5% Patch 2 PATCH TOPICAL (07:58)
[2020-08-25] MEDS: oxyCODONE 5 MG Tablet PO (08:00)
[2020-08-25] MEDS: Menthol/Lanolin/Calamine/Znox 113 GM Tube 1 APPLIC TOPICAL ×2 (08:06→17:47)
[2020-08-25 11:16] LABS: Bedside Glucose 228 mg/dL (70-110)
[2020-08-25 13:50] VITALS: BP 125/72; PULSE 76; RESP 17; TEMP 36.1; O2SAT 94
[2020-08-25 16:10] LABS: Bedside Glucose 174 mg/dL (70-110)
[2020-08-25 17:45] VITALS: BP 170/65; PULSE 85
[2020-08-25] MEDS: amLODIPine 5 MG Tablet PO (21:32)
[2020-08-25] MEDS: Atorvastatin Calcium 10 MG Tablet PO (21:33)
[2020-08-25] MEDS: MELATONIN 3 MG TABLET PO (21:33)
[2020-08-25 22:06] LABS: Bedside Glucose 183 mg/dL (70-110)
--- NOTE | 2020-08-26 00:32 | NURSING ---
Addendum entered by Vandana Davis 08/26/20 01:18: Pt had Lantus increased on 08/25 will continue to monitor blood sugar levels. Original Note: Pt concerned about her Blood sugar levels and would like to have her Lantus increased from 40 units to [address] Baptiste.
[2020-08-26 05:00] VITALS: BP 121/57; PULSE 76; RESP 18; TEMP 36.4; O2SAT 94
--- NOTE | 2020-08-26 06:10 | RAD_ITS ---
STUDY: X-RAY - LEFT FOOT CLINICAL: Female, 70 years old. fractures TECHNIQUE: 3 view(s) of the foot. COMPARISON: 07/23/2020 FINDINGS: Normal talus, calcaneus, and tarsal bones. Small plantar posterior calcaneal enthesophytes. Normal visualized subtalar, talonavicular, calcaneocuboid, tarsal and tarsometatarsal articulations. No change in the subtle nondisplaced fractures of the neck of the third and fourth metatarsal bones. Normal metatarsophalangeal joint of the great toe. Normal tibial and fibular sesamoid bones. Normal interphalangeal joint of the great toe. Normal phalanges of the great toe. Normal second through fifth metatarsophalangeal joints. Normal interphalangeal joints and phalanges of the lesser toes. The soft tissue structures are unremarkable. RAD/Foot min 3 Views IMPRESSION: No change in the subtle nondisplaced fractures of the neck of the third and fourth metatarsal bones. Electronically Signed: Jitendra Garza MD at 6:28 EDT Tel , Service support ,
[2020-08-26 06:21] LABS: Bedside Glucose 164 mg/dL (70-110)
[2020-08-26 06:41] VITALS: BP 121/57; PULSE 76
[2020-08-26] MEDS: Dicyclomine 10 MG Capsule 20 MG PO ×4 (06:41→21:00)
[2020-08-26] MEDS: DULoxetine Hcl 60 MG Capsule PO (06:41)
[2020-08-26] MEDS: Metoprolol Tartrate 50 MG Tablet PO ×2 (06:41→17:02)
[2020-08-26] MEDS: Acetaminophen 500 MG Tablet 1000 MG PO ×2 (06:41→13:47)
[2020-08-26] MEDS: Enoxaparin 40 MG/0.4 ML Syringe SC (06:42)
[2020-08-26] MEDS: Nystatin Powder 15gm Bottle 1 APPLIC TOPICAL ×2 (06:42→17:03)
[2020-08-26] MEDS: Menthol/Lanolin/Calamine/Znox 113 GM Tube 1 APPLIC TOPICAL ×2 (06:43→17:06)
--- NOTE | 2020-08-26 07:00 | RAD_ITS ---
STUDY: X-RAY - RIGHT FOOT CLINICAL: Female, 70 years old. FRACTURES TECHNIQUE: 3 view(s) of the foot. COMPARISON: 07/23/2020 FINDINGS: Normal talus, calcaneus, and tarsal bones. Small plantar posterior calcaneal enthesophytes. Normal visualized subtalar, talonavicular, calcaneocuboid, tarsal and tarsometatarsal articulations. Normal metatarsi. Normal metatarsophalangeal joint of the great toe. Normal tibial and fibular sesamoid bones. Normal interphalangeal joint of the great toe. Normal phalanges of the great toe. Normal second through fifth metatarsophalangeal joints. Normal interphalangeal joints and phalanges of the lesser toes. The soft tissue structures are unremarkable. RAD/Foot min 3 Views IMPRESSION: Normal x-ray examination of the foot. Electronically Signed: Jitendra Garza MD at 6:25 EDT Tel , Service support ,
[2020-08-26] MEDS: Gabapentin 100 MG Capsule PO ×3 (08:14→17:01)
[2020-08-26] MEDS: metFORMIN HCl 1,000 MG Tablet 1000 MG PO ×2 (08:15→17:00)
[2020-08-26] MEDS: Aspirin E.C. 81 MG Tablet PO (08:15)
[2020-08-26] MEDS: Iron Polysaccharide Complex 150 MG CAPSULE PO (08:15)
[2020-08-26] MEDS: oxyCODONE 5 MG Tablet PO ×2 (08:18→21:24)
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
[2020-08-26 11:30] LABS: Bedside Glucose 191 mg/dL (70-110)
[2020-08-26 14:30] VITALS: BP 129/62; PULSE 82; RESP 17; TEMP 35.7; O2SAT 91
[2020-08-26 16:21] LABS: Bedside Glucose 167 mg/dL (70-110)
[2020-08-26 17:02] VITALS: BP 129/62; PULSE 82
--- NOTE | 2020-08-26 17:14 | NURSING ---
updated at visit
[2020-08-26] MEDS: amLODIPine 5 MG Tablet PO (21:21)
[2020-08-26] MEDS: Atorvastatin Calcium 10 MG Tablet PO (21:21)
[2020-08-26] MEDS: MELATONIN 3 MG TABLET PO (21:21)
[2020-08-26] MEDS: Loperamide 2 MG Capsule PO (21:24)
[2020-08-26 21:35] LABS: Bedside Glucose 201 mg/dL (70-110)
[2020-08-27 05:00] VITALS: BP 113/55; PULSE 91; RESP 18; TEMP 36.6; O2SAT 77
[2020-08-27 05:25] VITALS: BP 113/55; PULSE 91
[2020-08-27] MEDS: Metoprolol Tartrate 50 MG Tablet PO ×2 (05:25→17:44)
[2020-08-27] MEDS: DULoxetine Hcl 60 MG Capsule PO (05:25)
[2020-08-27] MEDS: Enoxaparin 40 MG/0.4 ML Syringe SC (05:25)
[2020-08-27] MEDS: Acetaminophen 500 MG Tablet 1000 MG PO ×3 (05:25→21:46)
[2020-08-27] MEDS: Loperamide 2 MG Capsule PO (05:25)
[2020-08-27] MEDS: Dicyclomine 10 MG Capsule 20 MG PO ×4 (05:26→21:46)
[2020-08-27] MEDS: Menthol/Lanolin/Calamine/Znox 113 GM Tube 1 APPLIC TOPICAL ×2 (05:26→17:45)
[2020-08-27] MEDS: Nystatin Powder 15gm Bottle 1 APPLIC TOPICAL ×2 (05:26→17:45)
[2020-08-27 06:16] LABS: Bedside Glucose 202 mg/dL (70-110)
[2020-08-27] MEDS: oxyCODONE 5 MG Tablet PO (08:55)
[2020-08-27] MEDS: Gabapentin 100 MG Capsule PO ×3 (08:56→17:43)
[2020-08-27] MEDS: Aspirin E.C. 81 MG Tablet PO (08:57)
[2020-08-27] MEDS: Iron Polysaccharide Complex 150 MG CAPSULE PO (08:57)
[2020-08-27] MEDS: metFORMIN HCl 1,000 MG Tablet 1000 MG PO ×2 (08:57→17:43)
[2020-08-27 10:51] LABS: Bedside Glucose 233 mg/dL (70-110)
[2020-08-27 14:03] VITALS: BP 136/60; PULSE 83; RESP 16; TEMP 36.4; O2SAT 94
[2020-08-27 16:46] LABS: Bedside Glucose 161 mg/dL (70-110)
[2020-08-27] MEDS: Insulin Lispro 100 UNIT/ML INSULN.PEN 8 UNIT SC (17:41)
[2020-08-27 17:44] VITALS: PULSE 83
[2020-08-27] MEDS: amLODIPine 5 MG Tablet PO (21:46)
[2020-08-27] MEDS: MELATONIN 3 MG TABLET PO (21:46)
[2020-08-27] MEDS: Atorvastatin Calcium 10 MG Tablet PO (21:46)
[2020-08-27 22:36] LABS: Bedside Glucose 153 mg/dL (70-110)
[2020-08-28 05:00] VITALS: BP 142/55; PULSE 77; RESP 16; TEMP 36.6; O2SAT 94
[2020-08-28 05:14] VITALS: BP 142/55; PULSE 77
[2020-08-28] MEDS: Dicyclomine 10 MG Capsule 20 MG PO ×4 (05:14→21:38)
[2020-08-28] MEDS: DULoxetine Hcl 60 MG Capsule PO (05:14)
[2020-08-28] MEDS: Metoprolol Tartrate 50 MG Tablet PO ×2 (05:14→16:59)
[2020-08-28] MEDS: Enoxaparin 40 MG/0.4 ML Syringe SC (05:14)
[2020-08-28] MEDS: Menthol/Lanolin/Calamine/Znox 113 GM Tube 1 APPLIC TOPICAL ×2 (05:20→16:59)
[2020-08-28] MEDS: Nystatin Powder 15gm Bottle 1 APPLIC TOPICAL ×2 (05:20→17:00)
[2020-08-28 06:21] LABS: Bedside Glucose 124 mg/dL (70-110)
[2020-08-28] MEDS: Insulin Lispro 100 UNIT/ML INSULN.PEN 8 UNIT SC ×2 (08:05→16:56)
[2020-08-28] MEDS: Gabapentin 100 MG Capsule PO ×3 (08:07→16:55)
[2020-08-28] MEDS: Iron Polysaccharide Complex 150 MG CAPSULE PO (08:08)
[2020-08-28] MEDS: Aspirin E.C. 81 MG Tablet PO (08:08)
[2020-08-28] MEDS: metFORMIN HCl 1,000 MG Tablet 1000 MG PO ×2 (08:08→16:55)
[2020-08-28] MEDS: oxyCODONE 5 MG Tablet PO (10:39)
[2020-08-28] MEDS: Loperamide 2 MG Capsule PO (10:39)
[2020-08-28 10:46] LABS: Bedside Glucose 89 mg/dL (70-110)
[2020-08-28] MEDS: Acetaminophen 500 MG Tablet 1000 MG PO (13:15)
[2020-08-28 14:26] VITALS: BP 103/55; PULSE 78; RESP 14; TEMP 36.2; O2SAT 94
[2020-08-28 16:51] LABS: Bedside Glucose 132 mg/dL (70-110)
[2020-08-28 16:59] VITALS: PULSE 78
[2020-08-28 21:31] LABS: Bedside Glucose 143 mg/dL (70-110)
[2020-08-28] MEDS: amLODIPine 5 MG Tablet PO (21:38)
[2020-08-28] MEDS: Atorvastatin Calcium 10 MG Tablet PO (21:38)
[2020-08-28] MEDS: MELATONIN 3 MG TABLET PO (21:38)
[2020-08-28 21:39] VITALS: PULSE 76; RESP 16; O2SAT 93
--- NOTE | 2020-08-28 23:07 | NURSING ---
No labs orders, discussed with Dr. Baptiste, per him do not enter any further lab orders at this time.
[2020-08-29] MEDS: Ondansetron ODT 4 MG Tablet PO (05:44)
--- NOTE | 2020-08-29 05:45 | NURSING ---
Addendum entered by Neida Mustafa 08/29/20 06:33: Patient still nauseated at this time. Request meds to be given after breakfast. RN aware Original Note: Patient throwing up at this time. Zofran given per request, per order. Per patient request, holding AM meds for now.
[2020-08-29 06:36] LABS: Bedside Glucose 232 mg/dL (70-110)
[2020-08-29 06:46] VITALS: PULSE 76; RESP 16; TEMP 36.9; O2SAT 93
[2020-08-29] MEDS: Insulin Lispro 100 UNIT/ML INSULN.PEN 8 UNIT SC ×3 (08:21→18:00)
[2020-08-29] MEDS: Enoxaparin 40 MG/0.4 ML Syringe SC (10:45)
[2020-08-29 10:52] VITALS: BP 142/71; PULSE 89
[2020-08-29] MEDS: Metoprolol Tartrate 50 MG Tablet PO ×2 (10:52→20:23)
[2020-08-29] MEDS: Dicyclomine 10 MG Capsule 20 MG PO ×3 (10:53→20:18)
--- NOTE | 2020-08-29 10:56 | NURSING ---
PT REFUSED MOST OF MORNING MEDS DUE TO NAUSEA.
[2020-08-29 10:57] VITALS: BP 142/71; PULSE 89
[2020-08-29 11:16] LABS: Bedside Glucose 157 mg/dL (70-110)
[2020-08-29] MEDS: Gabapentin 100 MG Capsule PO ×2 (11:28→18:02)
[2020-08-29] MEDS: Acetaminophen 500 MG Tablet 1000 MG PO (13:57)
[2020-08-29 15:00] VITALS: PULSE 74; RESP 18; O2SAT 93
[2020-08-29 15:04] VITALS: BP 147/65; PULSE 75; RESP 18; TEMP 36.2; O2SAT 95
[2020-08-29] MEDS: metFORMIN HCl 1,000 MG Tablet 1000 MG PO (16:10)
[2020-08-29 16:21] LABS: Bedside Glucose 148 mg/dL (70-110)
[2020-08-29] MEDS: oxyCODONE 5 MG Tablet PO (20:15)
[2020-08-29] MEDS: Loperamide 2 MG Capsule PO (20:17)
[2020-08-29] MEDS: amLODIPine 5 MG Tablet PO (20:19)
[2020-08-29] MEDS: Atorvastatin Calcium 10 MG Tablet PO (20:20)
[2020-08-29 20:23] VITALS: BP 130/48; PULSE 94
[2020-08-29 21:21] LABS: Bedside Glucose 169 mg/dL (70-110)
[2020-08-29] MEDS: MELATONIN 3 MG TABLET PO (21:26)
[2020-08-30 05:00] VITALS: BP 125/47; PULSE 76; RESP 18; TEMP 36.6; O2SAT 90
[2020-08-30 06:00] VITALS: BP 125/47; PULSE 76
[2020-08-30] MEDS: DULoxetine Hcl 60 MG Capsule PO (06:00)
[2020-08-30] MEDS: Menthol/Lanolin/Calamine/Znox 113 GM Tube 1 APPLIC TOPICAL ×2 (06:00→17:38)
[2020-08-30] MEDS: Nystatin Powder 15gm Bottle 1 APPLIC TOPICAL ×2 (06:00→17:38)
[2020-08-30] MEDS: Acetaminophen 500 MG Tablet 1000 MG PO ×2 (06:00→22:00)
[2020-08-30] MEDS: Metoprolol Tartrate 50 MG Tablet PO ×2 (06:00→17:34)
[2020-08-30] MEDS: Enoxaparin 40 MG/0.4 ML Syringe SC (06:00)
[2020-08-30] MEDS: Loperamide 2 MG Capsule PO (06:20)
[2020-08-30 06:41] LABS: Bedside Glucose 179 mg/dL (70-110)
[2020-08-30] MEDS: Insulin Lispro 100 UNIT/ML INSULN.PEN 8 UNIT SC ×3 (06:45→17:30)
[2020-08-30] MEDS: Dicyclomine 10 MG Capsule 20 MG PO ×4 (07:00→22:00)
[2020-08-30] MEDS: Aspirin E.C. 81 MG Tablet PO (08:00)
[2020-08-30] MEDS: metFORMIN HCl 1,000 MG Tablet 1000 MG PO ×2 (08:00→16:20)
[2020-08-30] MEDS: Iron Polysaccharide Complex 150 MG CAPSULE PO (08:00)
[2020-08-30] MEDS: Gabapentin 100 MG Capsule PO ×3 (08:00→17:34)
[2020-08-30] MEDS: Lidocaine 5% Patch 2 PATCH TOPICAL (10:31)
[2020-08-30 10:50] LABS: Bedside Glucose 169 mg/dL (70-110)
[2020-08-30] MEDS: oxyCODONE 5 MG Tablet PO ×2 (11:48→22:03)
--- NOTE | 2020-08-30 13:14 | CASEMGMT ---
Social Work Spoke with pt and about DC plans. Pt and IDT agreeable for DC 09/09. Pt requesting outpatient [email or web address]. Referral made. Pt requesting FWW and 3-in-1 commode. [place] [facility] [place] [facility] prior to [place]. to transport. Plan: DC home with 09/09, [facility] PT/[facility], FWW, [facility] Lakshmi Lugo, [employer]
[2020-08-30 14:10] VITALS: BP 120/67; PULSE 79; RESP 18; TEMP 36.3; O2SAT 97
--- NOTE | 2020-08-30 15:08 | NURSING ---
UPDATED IN ROOM.
[2020-08-30 16:51] LABS: Bedside Glucose 107 mg/dL (70-110)
[2020-08-30 17:34] VITALS: BP 120/67; PULSE 79
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
[2020-08-30 21:41] LABS: Bedside Glucose 146 mg/dL (70-110)
[2020-08-30 21:50] VITALS: BP 116/59; PULSE 74
[2020-08-30] MEDS: MELATONIN 3 MG TABLET PO (21:59)
[2020-08-30] MEDS: Atorvastatin Calcium 10 MG Tablet PO (21:59)
[2020-08-30] MEDS: amLODIPine 5 MG Tablet PO (22:00)
[2020-08-31 06:15] LABS: Bedside Glucose 152 mg/dL (70-110)
[2020-08-31 06:19] VITALS: BP 109/48; PULSE 78; RESP 16; TEMP 36.3; O2SAT 96
[2020-08-31] MEDS: Dicyclomine 10 MG Capsule 20 MG PO ×4 (06:24→22:31)
[2020-08-31] MEDS: Gabapentin 100 MG Capsule PO ×3 (06:24→17:28)
[2020-08-31 06:25] VITALS: BP 109/48; PULSE 78
[2020-08-31] MEDS: DULoxetine Hcl 60 MG Capsule PO (06:25)
[2020-08-31] MEDS: Metoprolol Tartrate 50 MG Tablet PO ×2 (06:25→17:28)
[2020-08-31] MEDS: Nystatin Powder 15gm Bottle 1 APPLIC TOPICAL ×2 (06:26→17:29)
[2020-08-31] MEDS: Menthol/Lanolin/Calamine/Znox 113 GM Tube 1 APPLIC TOPICAL ×2 (06:27→17:28)
[2020-08-31] MEDS: Enoxaparin 40 MG/0.4 ML Syringe SC (06:28)
[2020-08-31] MEDS: Iron Polysaccharide Complex 150 MG CAPSULE PO (08:14)
[2020-08-31] MEDS: Aspirin E.C. 81 MG Tablet PO (08:15)
[2020-08-31] MEDS: Insulin Lispro 100 UNIT/ML INSULN.PEN 8 UNIT SC ×3 (08:16→17:27)
[2020-08-31] MEDS: oxyCODONE 5 MG Tablet PO ×2 (09:09→22:31)
[2020-08-31] MEDS: Lidocaine 5% Patch 2 PATCH TOPICAL (09:09)
[2020-08-31] MEDS: metFORMIN HCl 1,000 MG Tablet 1000 MG PO ×2 (09:10→17:28)
[2020-08-31 10:46] LABS: Bedside Glucose 140 mg/dL (70-110)
--- NOTE | 2020-08-31 12:31 | NURSING ---
Dr. Vines's office was called and N.O. wear splint with activity, can have brace off at rest to begin weaning off of splint, may perform gentle ROM, F/u with Dr. Vines after discharge. RN updated on new orders, Dr. Reyes's office was called to f/u from CRISTOFER Kim report and to see if pt can progress past 90 degrees of extension for knee, Kavitha in office said she would relay the question to Jayson C[place]
[2020-08-31] MEDS: Acetaminophen 500 MG Tablet 1000 MG PO (13:22)
[2020-08-31 13:33] VITALS: BP 122/66; PULSE 83; RESP 17; TEMP 36.2
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
[2020-08-31 16:31] LABS: Bedside Glucose 162 mg/dL (70-110)
[2020-08-31 17:28] VITALS: PULSE 83
[2020-08-31 21:41] LABS: Bedside Glucose 130 mg/dL (70-110)
[2020-08-31] MEDS: Atorvastatin Calcium 10 MG Tablet PO (22:31)
[2020-08-31] MEDS: amLODIPine 5 MG Tablet PO (22:31)
[2020-08-31] MEDS: MELATONIN 3 MG TABLET PO (22:31)
[2020-09-01 05:00] VITALS: BP 127/51; PULSE 81; RESP 16; TEMP 36.1; O2SAT 92
[2020-09-01 06:25] LABS: Bedside Glucose 155 mg/dL (70-110)
[2020-09-01] MEDS: Acetaminophen 500 MG Tablet 1000 MG PO ×2 (06:31→13:17)
[2020-09-01] MEDS: Dicyclomine 10 MG Capsule 20 MG PO ×4 (06:31→22:00)
[2020-09-01 06:32] VITALS: BP 127/51; PULSE 81
[2020-09-01] MEDS: Metoprolol Tartrate 50 MG Tablet PO ×2 (06:32→17:30)
[2020-09-01] MEDS: DULoxetine Hcl 60 MG Capsule PO (06:32)
[2020-09-01] MEDS: Enoxaparin 40 MG/0.4 ML Syringe SC (06:33)
[2020-09-01] MEDS: Menthol/Lanolin/Calamine/Znox 113 GM Tube 1 APPLIC TOPICAL ×2 (06:37→17:31)
[2020-09-01] MEDS: Nystatin Powder 15gm Bottle 1 APPLIC TOPICAL ×2 (06:37→17:32)
[2020-09-01] MEDS: Insulin Lispro 100 UNIT/ML INSULN.PEN 8 UNIT SC ×3 (08:07→17:29)
[2020-09-01] MEDS: Iron Polysaccharide Complex 150 MG CAPSULE PO (08:10)
[2020-09-01] MEDS: Gabapentin 100 MG Capsule PO ×3 (08:10→17:30)
[2020-09-01] MEDS: Aspirin E.C. 81 MG Tablet PO (08:10)
[2020-09-01] MEDS: metFORMIN HCl 1,000 MG Tablet 1000 MG PO ×2 (08:11→16:09)
[2020-09-01] MEDS: Lidocaine 5% Patch 2 PATCH TOPICAL (10:48)
[2020-09-01 11:16] LABS: Bedside Glucose 128 mg/dL (70-110)
[2020-09-01 15:22] VITALS: BP 133/58; PULSE 90; RESP 16; TEMP 35.9; O2SAT 93
[2020-09-01 15:56] LABS: Bedside Glucose 120 mg/dL (70-110)
[2020-09-01 17:30] VITALS: BP 133/58; PULSE 90
[2020-09-01] MEDS: MELATONIN 3 MG TABLET PO (22:00)
[2020-09-01] MEDS: oxyCODONE 5 MG Tablet PO (22:00)
[2020-09-01] MEDS: Atorvastatin Calcium 10 MG Tablet PO (22:00)
[2020-09-01] MEDS: amLODIPine 5 MG Tablet PO (22:00)
[2020-09-01 22:04] VITALS: PULSE 75; RESP 16; O2SAT 95
[2020-09-01 22:35] LABS: Bedside Glucose 138 mg/dL (70-110)
[2020-09-02 05:00] VITALS: BP 119/56; PULSE 81; RESP 16; TEMP 36.7; O2SAT 94
[2020-09-02 06:12] VITALS: BP 119/56; PULSE 81
[2020-09-02] MEDS: Metoprolol Tartrate 50 MG Tablet PO ×2 (06:12→17:12)
[2020-09-02] MEDS: Dicyclomine 10 MG Capsule 20 MG PO ×4 (06:12→20:53)
[2020-09-02] MEDS: Enoxaparin 40 MG/0.4 ML Syringe SC (06:12)
[2020-09-02] MEDS: DULoxetine Hcl 60 MG Capsule PO (06:13)
[2020-09-02] MEDS: Nystatin Powder 15gm Bottle 1 APPLIC TOPICAL ×2 (06:16→17:13)
[2020-09-02] MEDS: Menthol/Lanolin/Calamine/Znox 113 GM Tube 1 APPLIC TOPICAL ×2 (06:16→17:12)
[2020-09-02 06:36] LABS: Bedside Glucose 175 mg/dL (70-110)
[2020-09-02] MEDS: Insulin Lispro 100 UNIT/ML INSULN.PEN 8 UNIT SC ×3 (08:07→17:11)
[2020-09-02] MEDS: Gabapentin 100 MG Capsule PO ×3 (08:07→17:12)
[2020-09-02] MEDS: metFORMIN HCl 1,000 MG Tablet 1000 MG PO ×2 (08:08→17:11)
[2020-09-02] MEDS: Aspirin E.C. 81 MG Tablet PO (08:08)
[2020-09-02] MEDS: Iron Polysaccharide Complex 150 MG CAPSULE PO (08:08)
[2020-09-02] MEDS: oxyCODONE 5 MG Tablet PO ×2 (09:36→18:12)
[2020-09-02] MEDS: Lidocaine 5% Patch 2 PATCH TOPICAL (09:37)
[2020-09-02 11:05] LABS: Bedside Glucose 167 mg/dL (70-110)
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
[2020-09-02] MEDS: Acetaminophen 500 MG Tablet 1000 MG PO ×2 (13:11→20:53)
[2020-09-02 13:53] VITALS: BP 133/72; PULSE 77; RESP 16; TEMP 36.2; O2SAT 97
[2020-09-02 16:45] LABS: Bedside Glucose 166 mg/dL (70-110)
[2020-09-02 17:12] VITALS: PULSE 77
[2020-09-02] MEDS: amLODIPine 5 MG Tablet PO (20:53)
[2020-09-02] MEDS: Atorvastatin Calcium 10 MG Tablet PO (20:53)
[2020-09-02] MEDS: MELATONIN 3 MG TABLET PO (20:53)
[2020-09-02 21:56] LABS: Bedside Glucose 142 mg/dL (70-110)
[2020-09-03 06:26] LABS: Bedside Glucose 156 mg/dL (70-110)
[2020-09-03 06:27] VITALS: BP 136/52; PULSE 80; RESP 18; TEMP 36.3; O2SAT 92
[2020-09-03 06:31] VITALS: BP 136/52; PULSE 80
[2020-09-03] MEDS: Menthol/Lanolin/Calamine/Znox 113 GM Tube 1 APPLIC TOPICAL ×2 (06:31→17:38)
[2020-09-03] MEDS: Metoprolol Tartrate 50 MG Tablet PO ×2 (06:31→17:34)
[2020-09-03] MEDS: DULoxetine Hcl 60 MG Capsule PO (06:31)
[2020-09-03] MEDS: Acetaminophen 500 MG Tablet 1000 MG PO ×2 (06:32→13:13)
[2020-09-03] MEDS: Enoxaparin 40 MG/0.4 ML Syringe SC (06:32)
[2020-09-03] MEDS: Nystatin Powder 15gm Bottle 1 APPLIC TOPICAL ×2 (06:32→17:38)
[2020-09-03] MEDS: Dicyclomine 10 MG Capsule 20 MG PO ×4 (06:33→21:51)
[2020-09-03] MEDS: Insulin Lispro 100 UNIT/ML INSULN.PEN 8 UNIT SC ×3 (08:09→17:35)
[2020-09-03] MEDS: Lidocaine 5% Patch 2 PATCH TOPICAL (08:13)
[2020-09-03] MEDS: Gabapentin 100 MG Capsule PO ×3 (08:16→17:34)
[2020-09-03] MEDS: Iron Polysaccharide Complex 150 MG CAPSULE PO (08:16)
[2020-09-03] MEDS: metFORMIN HCl 1,000 MG Tablet 1000 MG PO ×2 (08:16→17:34)
[2020-09-03] MEDS: Aspirin E.C. 81 MG Tablet PO (08:16)
[2020-09-03] MEDS: oxyCODONE 5 MG Tablet PO (10:07)
[2020-09-03 10:46] LABS: Bedside Glucose 154 mg/dL (70-110)
[2020-09-03 13:46] VITALS: BP 135/48; PULSE 72; RESP 20; TEMP 36.6; O2SAT 96
[2020-09-03 16:40] LABS: Bedside Glucose 112 mg/dL (70-110)
[2020-09-03 17:34] VITALS: PULSE 77
[2020-09-03 21:26] LABS: Bedside Glucose 138 mg/dL (70-110)
[2020-09-03 21:50] VITALS: BP 102/63; BP 114/48; PULSE 73; PULSE 75
--- NOTE | 2020-09-03 21:50 | NURSING ---
Offered HS snack prior to administering Lantus for HS blood sugar of 138. Pt informs this nurse she just consumed saltine crackers.
[2020-09-03] MEDS: MELATONIN 3 MG TABLET PO (21:51)
[2020-09-03] MEDS: Atorvastatin Calcium 10 MG Tablet PO (21:52)
[2020-09-04 06:20] LABS: Bedside Glucose 176 mg/dL (70-110)
[2020-09-04 06:54] VITALS: BP 140/62; PULSE 82; RESP 18; TEMP 37.6; O2SAT 93
[2020-09-04] MEDS: Dicyclomine 10 MG Capsule 20 MG PO ×4 (07:00→22:17)
[2020-09-04 07:01] VITALS: BP 140/62; PULSE 82
[2020-09-04] MEDS: Metoprolol Tartrate 50 MG Tablet PO ×2 (07:01→17:39)
[2020-09-04] MEDS: Enoxaparin 40 MG/0.4 ML Syringe SC (07:01)
[2020-09-04] MEDS: DULoxetine Hcl 60 MG Capsule PO (07:01)
[2020-09-04] MEDS: Acetaminophen 500 MG Tablet 1000 MG PO ×3 (07:01→22:14)
[2020-09-04] MEDS: Menthol/Lanolin/Calamine/Znox 113 GM Tube 1 APPLIC TOPICAL ×2 (07:02→17:44)
[2020-09-04] MEDS: Nystatin Powder 15gm Bottle 1 APPLIC TOPICAL ×2 (07:04→17:45)
[2020-09-04] MEDS: Insulin Lispro 100 UNIT/ML INSULN.PEN 8 UNIT SC ×3 (07:07→17:36)
[2020-09-04] MEDS: Gabapentin 100 MG Capsule PO ×3 (08:31→17:38)
[2020-09-04] MEDS: Aspirin E.C. 81 MG Tablet PO (08:31)
[2020-09-04] MEDS: Iron Polysaccharide Complex 150 MG CAPSULE PO (08:31)
[2020-09-04] MEDS: metFORMIN HCl 1,000 MG Tablet 1000 MG PO ×2 (08:31→17:38)
[2020-09-04 09:48] VITALS: PULSE 72; RESP 16
[2020-09-04 11:05] LABS: Bedside Glucose 153 mg/dL (70-110)
[2020-09-04 15:08] VITALS: BP 131/54; PULSE 73; RESP 16; TEMP 36.8; O2SAT 95
[2020-09-04 16:50] LABS: Bedside Glucose 126 mg/dL (70-110)
[2020-09-04 17:39] VITALS: BP 131/54; PULSE 73
[2020-09-04 22:11] LABS: Bedside Glucose 161 mg/dL (70-110)
[2020-09-04] MEDS: oxyCODONE 5 MG Tablet PO (22:12)
[2020-09-04] MEDS: amLODIPine 5 MG Tablet PO (22:15)
[2020-09-04] MEDS: MELATONIN 3 MG TABLET PO (22:15)
[2020-09-04] MEDS: Atorvastatin Calcium 10 MG Tablet PO (22:16)
[2020-09-05 06:15] LABS: Bedside Glucose 156 mg/dL (70-110)
[2020-09-05] MEDS: Acetaminophen 500 MG Tablet 1000 MG PO ×3 (06:46→21:24)
[2020-09-05] MEDS: Enoxaparin 40 MG/0.4 ML Syringe SC (06:47)
[2020-09-05 06:48] VITALS: BP 129/67; PULSE 76
[2020-09-05] MEDS: Metoprolol Tartrate 50 MG Tablet PO ×2 (06:48→17:12)
[2020-09-05] MEDS: DULoxetine Hcl 60 MG Capsule PO (06:48)
[2020-09-05] MEDS: Menthol/Lanolin/Calamine/Znox 113 GM Tube 1 APPLIC TOPICAL ×2 (06:50→17:14)
[2020-09-05] MEDS: Insulin Lispro 100 UNIT/ML INSULN.PEN 8 UNIT SC ×3 (06:52→17:12)
[2020-09-05] MEDS: Dicyclomine 10 MG Capsule 20 MG PO ×4 (06:53→21:23)
[2020-09-05] MEDS: Gabapentin 100 MG Capsule PO ×3 (06:54→17:11)
[2020-09-05] MEDS: Nystatin Powder 15gm Bottle 1 APPLIC TOPICAL ×2 (06:55→17:14)
[2020-09-05] MEDS: Iron Polysaccharide Complex 150 MG CAPSULE PO (07:47)
[2020-09-05] MEDS: Aspirin E.C. 81 MG Tablet PO (07:47)
[2020-09-05] MEDS: metFORMIN HCl 1,000 MG Tablet 1000 MG PO ×2 (07:47→17:12)
[2020-09-05] MEDS: oxyCODONE 5 MG Tablet PO (09:25)
[2020-09-05] MEDS: Lidocaine 5% Patch 2 PATCH TOPICAL (09:26)
[2020-09-05 10:55] LABS: Bedside Glucose 206 mg/dL (70-110)
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
--- NOTE | 2020-09-05 13:02 | CASEMGMT ---
Social Work Spoke with whom stated he bought the BSC. Contacted [facility] [place] [facility] to cancel BSC order. SARA NajeraW
[2020-09-05 15:03] VITALS: BP 123/70; PULSE 76; RESP 14; TEMP 36.2; O2SAT 94
[2020-09-05 16:45] LABS: Bedside Glucose 105 mg/dL (70-110)
[2020-09-05 17:12] VITALS: PULSE 76
[2020-09-05 21:16] LABS: Bedside Glucose 96 mg/dL (70-110)
[2020-09-05] MEDS: MELATONIN 3 MG TABLET PO (21:23)
[2020-09-05] MEDS: amLODIPine 5 MG Tablet PO (21:24)
[2020-09-05] MEDS: Atorvastatin Calcium 10 MG Tablet PO (21:25)
[2020-09-06 06:15] LABS: Bedside Glucose 148 mg/dL (70-110)
[2020-09-06 06:34] VITALS: BP 117/64; PULSE 82; RESP 18; TEMP 36.3; O2SAT 95
[2020-09-06 06:39] VITALS: BP 117/64; PULSE 82
[2020-09-06] MEDS: DULoxetine Hcl 60 MG Capsule PO (06:39)
[2020-09-06] MEDS: Menthol/Lanolin/Calamine/Znox 113 GM Tube 1 APPLIC TOPICAL ×2 (06:39→17:17)
[2020-09-06] MEDS: Metoprolol Tartrate 50 MG Tablet PO ×2 (06:39→17:17)
[2020-09-06] MEDS: Enoxaparin 40 MG/0.4 ML Syringe SC (06:40)
[2020-09-06] MEDS: Acetaminophen 500 MG Tablet 1000 MG PO ×2 (06:40→13:44)
[2020-09-06] MEDS: Nystatin Powder 15gm Bottle 1 APPLIC TOPICAL (06:40)
[2020-09-06] MEDS: Dicyclomine 10 MG Capsule 20 MG PO ×4 (06:41→21:32)
[2020-09-06] MEDS: Insulin Lispro 100 UNIT/ML INSULN.PEN 8 UNIT SC ×3 (06:45→17:19)
[2020-09-06] MEDS: Iron Polysaccharide Complex 150 MG CAPSULE PO (08:08)
[2020-09-06] MEDS: Aspirin E.C. 81 MG Tablet PO (08:08)
[2020-09-06] MEDS: metFORMIN HCl 1,000 MG Tablet 1000 MG PO ×2 (08:09→16:01)
[2020-09-06] MEDS: Gabapentin 100 MG Capsule PO ×3 (08:09→17:16)
[2020-09-06 09:45] VITALS: PULSE 65; RESP 18; O2SAT 97
[2020-09-06 10:50] LABS: Bedside Glucose 201 mg/dL (70-110)
[2020-09-06] MEDS: Lidocaine 5% Patch 2 PATCH TOPICAL (11:07)
[2020-09-06] MEDS: oxyCODONE 5 MG Tablet PO (11:12)
--- NOTE | 2020-09-06 12:39 | NURSING ---
updated in room
[2020-09-06 13:49] VITALS: BP 113/56; PULSE 77; RESP 16; TEMP 36.9; O2SAT 94
[2020-09-06 16:35] LABS: Bedside Glucose 104 mg/dL (70-110)
[2020-09-06 17:17] VITALS: BP 113/56; PULSE 77
--- NOTE | 2020-09-06 20:30 | PCA ---
walked in pt.room and found her in the bathroom.asked her who brought her and pt.stated she brought herself
--- NOTE | 2020-09-06 21:17 | NURSING ---
Entered patient's room to administer HS medications. Observed patient ambulating into bathroom with walker. Patient stated, I wasn't told I could get up, but when I have to go, I have to go. Educated patient on use of call light and safety. Assisted patient with toileting and new brief. Patient ambulated back to bed with this Nurse's assistance. When this nurse was exiting room, reminded patient to use call light and not to ambulate on her on. Patient responded with a smile.
[2020-09-06 21:20] LABS: Bedside Glucose 106 mg/dL (70-110)
[2020-09-06] MEDS: MELATONIN 3 MG TABLET PO (21:32)
[2020-09-06] MEDS: amLODIPine 5 MG Tablet PO (21:32)
[2020-09-06] MEDS: Atorvastatin Calcium 10 MG Tablet PO (21:32)
[2020-09-07 05:00] VITALS: BP 153/68; PULSE 88; RESP 16; TEMP 36.2; O2SAT 94
[2020-09-07 05:05] VITALS: BP 153/68; PULSE 88
[2020-09-07] MEDS: Dicyclomine 10 MG Capsule 20 MG PO ×4 (05:05→21:38)
[2020-09-07] MEDS: Metoprolol Tartrate 50 MG Tablet PO ×2 (05:05→17:17)
[2020-09-07] MEDS: DULoxetine Hcl 60 MG Capsule PO (05:05)
[2020-09-07] MEDS: Acetaminophen 500 MG Tablet 1000 MG PO ×3 (05:08→21:38)
[2020-09-07] MEDS: Enoxaparin 40 MG/0.4 ML Syringe SC (05:09)
[2020-09-07] MEDS: Menthol/Lanolin/Calamine/Znox 113 GM Tube 1 APPLIC TOPICAL ×2 (05:11→17:18)
[2020-09-07] MEDS: Nystatin Powder 15gm Bottle 1 APPLIC TOPICAL ×2 (05:12→17:18)
[2020-09-07 06:25] LABS: Bedside Glucose 179 mg/dL (70-110)
[2020-09-07] MEDS: Insulin Lispro 100 UNIT/ML INSULN.PEN 8 UNIT SC ×3 (08:01→17:15)
[2020-09-07] MEDS: Gabapentin 100 MG Capsule PO ×3 (08:02→17:17)
[2020-09-07] MEDS: Aspirin E.C. 81 MG Tablet PO (08:02)
[2020-09-07] MEDS: Iron Polysaccharide Complex 150 MG CAPSULE PO (08:02)
[2020-09-07] MEDS: metFORMIN HCl 1,000 MG Tablet 1000 MG PO ×2 (08:02→17:16)
[2020-09-07] MEDS: oxyCODONE 5 MG Tablet PO (09:11)
[2020-09-07] MEDS: Lidocaine 5% Patch 2 PATCH TOPICAL (09:12)
[2020-09-07 11:20] LABS: Bedside Glucose 124 mg/dL (70-110)
--- NOTE | 2020-09-07 14:16 | NURSING ---
Therapy was updated on pt self transferring, pt was made up ad dorothea today
[2020-09-07 14:57] VITALS: BP 134/60; PULSE 80; RESP 16; TEMP 36.9; O2SAT 96
[2020-09-07 16:31] LABS: Bedside Glucose 121 mg/dL (70-110)
[2020-09-07 17:17] VITALS: PULSE 81
[2020-09-07 21:16] LABS: Bedside Glucose 125 mg/dL (70-110)
[2020-09-07] MEDS: Atorvastatin Calcium 10 MG Tablet PO (21:37)
[2020-09-07] MEDS: amLODIPine 5 MG Tablet PO (21:37)
[2020-09-07] MEDS: MELATONIN 3 MG TABLET PO (21:38)
[2020-09-08 06:21] VITALS: BP 139/61; PULSE 82; RESP 16; TEMP 36.8; O2SAT 94
[2020-09-08 06:22] VITALS: BP 139/61; PULSE 82
[2020-09-08] MEDS: DULoxetine Hcl 60 MG Capsule PO (06:22)
[2020-09-08] MEDS: Metoprolol Tartrate 50 MG Tablet PO ×2 (06:22→17:42)
[2020-09-08] MEDS: Dicyclomine 10 MG Capsule 20 MG PO ×4 (06:23→21:20)
[2020-09-08] MEDS: Acetaminophen 500 MG Tablet 1000 MG PO (06:23)
[2020-09-08] MEDS: Enoxaparin 40 MG/0.4 ML Syringe SC (06:23)
[2020-09-08 06:25] LABS: Bedside Glucose 160 mg/dL (70-110)
[2020-09-08] MEDS: Menthol/Lanolin/Calamine/Znox 113 GM Tube 1 APPLIC TOPICAL (06:26)
[2020-09-08] MEDS: Nystatin Powder 15gm Bottle 1 APPLIC TOPICAL (06:27)
[2020-09-08] MEDS: Insulin Lispro 100 UNIT/ML INSULN.PEN 8 UNIT SC ×3 (08:07→17:43)
[2020-09-08] MEDS: Gabapentin 100 MG Capsule PO ×3 (08:10→17:42)
[2020-09-08] MEDS: Aspirin E.C. 81 MG Tablet PO (08:10)
[2020-09-08] MEDS: Iron Polysaccharide Complex 150 MG CAPSULE PO (08:11)
[2020-09-08] MEDS: metFORMIN HCl 1,000 MG Tablet 1000 MG PO ×2 (08:11→16:15)
[2020-09-08] MEDS: oxyCODONE 5 MG Tablet PO ×2 (10:59→21:22)
[2020-09-08] MEDS: Lidocaine 5% Patch 2 PATCH TOPICAL (11:00)
[2020-09-08 11:05] LABS: Bedside Glucose 152 mg/dL (70-110)
--- NOTE | 2020-09-08 12:18 | PCA ---
informed me that he consumed about 75% of patients lunch tray.
[2020-09-08 13:56] VITALS: BP 124/61; PULSE 77; RESP 20; TEMP 36.2; O2SAT 94
[2020-09-08 16:45] LABS: Bedside Glucose 89 mg/dL (70-110)
[2020-09-08 17:42] VITALS: BP 124/61; PULSE 77
[2020-09-08] MEDS: amLODIPine 5 MG Tablet PO (21:23)
[2020-09-08] MEDS: Atorvastatin Calcium 10 MG Tablet PO (21:23)
[2020-09-08] MEDS: MELATONIN 3 MG TABLET PO (21:24)
[2020-09-08 21:36] LABS: Bedside Glucose 115 mg/dL (70-110)
[2020-09-08 22:00] VITALS: O2SAT 98
[2020-09-09 05:00] VITALS: BP 133/55; PULSE 76; RESP 18; TEMP 36.6; O2SAT 93
[2020-09-09] MEDS: Enoxaparin 40 MG/0.4 ML Syringe SC (06:00)
[2020-09-09 06:01] VITALS: BP 133/55; PULSE 76
[2020-09-09] MEDS: Menthol/Lanolin/Calamine/Znox 113 GM Tube 1 APPLIC TOPICAL (06:01)
[2020-09-09] MEDS: DULoxetine Hcl 60 MG Capsule PO (06:01)
[2020-09-09] MEDS: Metoprolol Tartrate 50 MG Tablet PO (06:01)
[2020-09-09] MEDS: Dicyclomine 10 MG Capsule 20 MG PO ×2 (06:01→11:04)
[2020-09-09] MEDS: Nystatin Powder 15gm Bottle 1 APPLIC TOPICAL (06:02)
[2020-09-09 06:21] LABS: Bedside Glucose 178 mg/dL (70-110)
[2020-09-09] MEDS: Gabapentin 100 MG Capsule PO (08:58)
[2020-09-09] MEDS: Iron Polysaccharide Complex 150 MG CAPSULE PO (08:59)
[2020-09-09] MEDS: metFORMIN HCl 1,000 MG Tablet 1000 MG PO (08:59)
[2020-09-09] MEDS: Aspirin E.C. 81 MG Tablet PO (08:59)
[2020-09-09] MEDS: Ondansetron ODT 4 MG Tablet PO (10:19)
[2020-09-09] MEDS: Insulin Lispro 100 UNIT/ML INSULN.PEN 8 UNIT SC (11:06)
[2020-09-09 11:11] LABS: Bedside Glucose 209 mg/dL (70-110)
[2020-09-09 12:20] VITALS: BP 153/56; PULSE 80; RESP 16; TEMP 36.8; O2SAT 91
== END 2020-09-09 12:30 | disposition home or self-care (01) | DRG 561 ==
PROVIDERS: Admitting Provider Family Medicine Geriatric Medicine; PCP Family Medicine; Visit Provider Family Medicine Geriatric Medicine
DX: S32.9XXD Fracture of unspecified parts of lumbosacral spine and pelvis, subsequent encounter for fracture with routine healing (principal); S62.102D Fracture of unspecified carpal bone, left wrist, subsequent encounter for fracture with routine healing; S82.001D Unspecified fracture of right patella, subsequent encounter for closed fracture with routine healing; S92.342D Displaced fracture of fourth metatarsal bone, left foot, subsequent encounter for fracture with routine healing; S22.39XD Fracture of one rib, unspecified side, subsequent encounter for fracture with routine healing; S22.20XD Unspecified fracture of sternum, subsequent encounter for fracture with routine healing; S32.009D Unspecified fracture of unspecified lumbar vertebra, subsequent encounter for fracture with routine healing; S92.332D Displaced fracture of third metatarsal bone, left foot, subsequent encounter for fracture with routine healing; V49.9XXD Car occupant (driver) (passenger) injured in unspecified traffic accident, subsequent encounter; E11.40 Type 2 diabetes mellitus with diabetic neuropathy, unspecified; Z23 Encounter for immunization; I10 Essential (primary) hypertension; E78.5 Hyperlipidemia, unspecified; M06.9 Rheumatoid arthritis, unspecified; E11.319 Type 2 diabetes mellitus with unspecified diabetic retinopathy without macular edema; D50.9 Iron deficiency anemia, unspecified; E55.9 Vitamin D deficiency, unspecified; H90.3 Sensorineural hearing loss, bilateral; H93.19 Tinnitus, unspecified ear; B35.1 Tinea unguium; E11.42 Type 2 diabetes mellitus with diabetic polyneuropathy; D51.0 Vitamin B12 deficiency anemia due to intrinsic factor deficiency; B35.4 Tinea corporis; K58.0 Irritable bowel syndrome with diarrhea; F32.9 Major depressive disorder, single episode, unspecified; Z87.891 Personal history of nicotine dependence; Z79.899 Other long term (current) drug therapy; Z79.4 Long term (current) use of insulin; Z79.82 Long term (current) use of aspirin
CPT/HCPCS: 36415; 73100; 73562; 73620; 73630; 74018; 80048; 82962; 85025; 87493; 87506; 87635; 94640; 97110; 97116; 97163; 97167; 97530; 97535; 97537; 97802; G0009; 90670; J1610; J3420; U0002

== ENCOUNTER 2020-09-26 14:00 | Outpatient (RCR) | payer MEDICARE, OTHER, SELFPAY ==
[2020-07-15 22:42] VITALS: BMI 32.5
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
--- NOTE | 2020-12-15 12:07 | HP.PT.NRP ---
JULIANNA GARVEY was seen in my office for initial evaluation on 09/14/20. The following Plan of Care was established for this patient: Initial Frequency: 3x /Week Initial Duration: 4-6 Weeks Patient/Client Instruction: Educate patient on: Condition, Plan of Care For the Purpose of:: To improve muscle performance and motor function, To improve ability of physical actions for home/community/work/leisure, To improve gait and locomotor functions Therapeutic Exercise to Include: Strength training, Flexibilty training, Gait and locomotor training, Passive ROM, Active ROM For the Purpose of:: To improve muscle performance and motor function, To increase tolerance to activity/condition/position, To improve gait and locomotor functions Manual Therapy Techniques to Include: Soft tissue mobilization For the Purpose of:: To improve nutrient delivery to tissue TENS: Yes Thermo therapy (hot pack): Yes For the Purpose of:: To improve muscle performance and motor function This patient was last seen in our office 09/26/20. Pertinent comments regarding their Physical therapy will appear below: Pt seen 3 visits of plan of care. She cancelled all appointemnts due to sickness and was to call back if needed in November. At this point, it has been over two months adn I will disocntinue due to nonattendance. At this point I will be discontinuing this patient from physical therapy. I would be happy to see this patient again in the future if found appropriate by the physician. Thank you! Karlos Smith, DPT, OCS, CSCS Balance/Gait/Functional tests - Balance/Special Test Scores Functional Gait Assessment Score: 18 % Disability: 40.0000 Lower Extremity Functional Score: 12
== END 2020-09-26 19:00 | disposition home or self-care (01) ==
LOC: PT 14:00
PROVIDERS: PCP Family Medicine; Referring Provider Family Medicine; Visit Provider Family Medicine
DX: T14.8XXD Other injury of unspecified body region, subsequent encounter (principal); V89.2XXD Person injured in unspecified motor-vehicle accident, traffic, subsequent encounter
CPT/HCPCS: 97110; 97163; 97166

== ENCOUNTER → 2020-11-09 16:13 | Outpatient (CLI) | payer MEDICARE, OTHER, SELFPAY ==
[2020-09-19 13:13] VITALS: BMI 32.5
[2020-11-09 17:40] LABS: Absolute Lymphocyte Count 0.98 X10^3/uL (0.83-4.51); Absolute Neutrophil Count 5.7 X10^3/uL (2.0-7.7); Basophil# 0.04 X10^3/uL; Basophil% 0.5 % (0-1); Eosinophil# 0.11 X10^3/uL; Eosinophils% 1.5 % (0-5); Hematocrit 37.2 % (37-47); Hemoglobin 11.2 g/dL (12.0-15.0); Lymphocyte # 0.98 X10^3/ul (0.83-4.51); Lymphocyte % 13.4 % (19-41); Mean Corp Hgb Conc 30.1 g/dL (32-36); Mean Corpuscular Hgb 27.7 pg (27.0-32.0); Mean Corpuscular Volume 92.1 fL (81-99); Mean Platelet Vol. 10.8 fl (6.2-12.0); Monocyte# 0.49 X10^3/uL; Monocyte% 6.7 % (0-10); NRBC Flagged by Analyzer 0 % (0-5); Neutrophil # 5.65 X10^3/uL (2.7-7.7); Neutrophil % 77.6 % (47-70); Platelet Count 259 K/mm3 (150-450); RBC Distribution Width CV 16.7 % (11.6-14.6); Red Blood Count 4.04 M/mm3 (4.2-5.4); White Blood Count 7.3 K/mm3 (4.4-11.0)
[2020-11-09 18:02] LABS: ALB/GLOB Ratio 0.8 RATIO (0.9-2.4); AST(SGOT) 11 U/L (15-37); Alanine Aminotransfer ALT/SGPT 16 U/L (13-56); Albumin, Serum 3.4 g/dL (3.2-5.0); Alkaline Phosphatase 54 U/L (45-117); Anion Gap 5 (5-15); BUN 25 mg/dL (7-18); BUN/Creat Ratio 22.5 RATIO (10-20); Calcium,Total 9.3 mg/dL (8.5-10.1); Chloride 105 mmol/L (98-107); Creatinine, Serum 1.11 mg/dL (0.55-1.02); EST Glomerular Filtration Rate 52 mL/min (>60); Est Glom Filt Rate - Afr Amer 62 mL/min (>60); Globulin 4.2 g/dL (2.2-4.2); Glucose 173 mg/dL (74-106); Potassium 4.3 mmol/L (3.5-5.1); Protein, Total 7.6 g/dL (6.4-8.2); Sodium Level 138 mmol/L (136-145)
== END ==
PROVIDERS: PCP Family Medicine; Visit Provider Family Medicine
DX: N39.0 Urinary tract infection, site not specified (principal); K58.9 Irritable bowel syndrome, unspecified
CPT/HCPCS: 36415; 80053; 85025; 87077; 87086; 87088; 87186

== ENCOUNTER → 2021-03-27 | Outpatient (CLI) | payer MEDICARE, OTHER, SELFPAY | END | disposition home or self-care (01) | PROVIDERS: Visit Provider Family Medicine | DX: N39.0 Urinary tract infection, site not specified (principal) | CPT/HCPCS: 87086; 87088; 87186 ==

== ENCOUNTER → 2021-04-18 11:24 | Outpatient (CLI) | payer MEDICARE, OTHER, SELFPAY ==
[2021-04-18 15:47] LABS: ALB/GLOB Ratio 0.8 RATIO (0.9-2.4); AST(SGOT) 12 U/L (15-37); Alanine Aminotransfer ALT/SGPT 17 U/L (13-56); Albumin, Serum 3.5 g/dL (3.2-5.0); Alkaline Phosphatase 37 U/L (45-117); Anion Gap 6 (5-15); BUN 32 mg/dL (7-18); BUN/Creat Ratio 30.5 RATIO (10-20); Calcium,Total 9.6 mg/dL (8.5-10.1); Chloride 104 mmol/L (98-107); Cholesterol 126 mg/dL (200); Creatinine, Serum 1.05 mg/dL (0.55-1.02); EST Glomerular Filtration Rate 55 mL/min (>60); Est Glom Filt Rate - Afr Amer 66 mL/min (>60); Globulin 4.5 g/dL (2.2-4.2); Glucose 124 mg/dL (74-106); High Density Lipoprotein 53 mg/dL; Potassium 4.4 mmol/L (3.5-5.1); Sodium Level 138 mmol/L (136-145); Triglycerides 189 mg/dL; Very Low Density Lipoprotein 38 mg/dL (5-40)
== END ==
PROVIDERS: Visit Provider Family Medicine
DX: E11.40 Type 2 diabetes mellitus with diabetic neuropathy, unspecified (principal)
CPT/HCPCS: 36415; 80053; 80061

== ENCOUNTER → 2021-04-19 11:45 | Outpatient (CLI) | payer MEDICARE, OTHER, SELFPAY | PROVIDERS: PCP Family Medicine; Referring Provider Family Medicine; Visit Provider Family Medicine | DX: N39.0 Urinary tract infection, site not specified (principal) | CPT/HCPCS: 87086; 87088 ==

== ENCOUNTER 2021-05-16 15:00 | Outpatient (RCR) | payer MEDICARE, OTHER, SELFPAY ==
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
== END 2021-05-16 19:00 | disposition home or self-care (01) ==
LOC: PT 15:00
PROVIDERS: PCP Family Medicine; Referring Provider Family Medicine; Visit Provider Family Medicine
DX: M25.561 Pain in right knee (principal); V89.2XXD Person injured in unspecified motor-vehicle accident, traffic, subsequent encounter
CPT/HCPCS: 97110; 97162; 97164

== ENCOUNTER 2021-06-12 14:41 | Outpatient (CLI) | payer MEDICARE, OTHER, SELFPAY ==
[2021-06-12 15:43] LABS: Erythrocyte Sedimentation Rate 44 mm/hr (0-30)
[2021-06-12 15:45] LABS: Absolute Lymphocyte Count 1.17 X10^3/uL (0.83-4.51); Absolute Neutrophil Count 4.1 X10^3/uL (2.0-7.7); Basophil# 0.03 X10^3/uL; Basophil% 0.5 % (0-1); Eosinophils% 1.7 % (0-5); Hematocrit 38.6 % (37-47); Hemoglobin 12.5 g/dL (12.0-15.0); Lymphocyte # 1.17 X10^3/ul (0.83-4.51); Lymphocyte % 19.9 % (19-41); Mean Corp Hgb Conc 32.4 g/dL (32-36); Mean Corpuscular Hgb 30.3 pg (27.0-32.0); Mean Corpuscular Volume 93.7 fL (81-99); Mean Platelet Vol. 10.5 fl (6.2-12.0); Monocyte# 0.42 X10^3/uL; Monocyte% 7.1 % (0-10); NRBC Flagged by Analyzer 0 % (0-5); Neutrophil # 4.13 X10^3/uL (2.7-7.7); Neutrophil % 70.3 % (47-70); Platelet Count 215 K/mm3 (150-450); RBC Distribution Width CV 14.2 % (11.6-14.6); RBC Distribution Width SD 47.9 fl (35.1-43.9); Red Blood Count 4.12 M/mm3 (4.2-5.4); White Blood Count 5.9 K/mm3 (4.4-11.0)
[2021-06-12 15:46] LABS: CRP < 2.90 mg/L (0.0-3.0); LDH 156 U/L (84-246)
[2021-06-12 15:47] LABS: Vitamin B12 549 pg/mL (211-911)
[2021-06-14 12:09] LABS: Anti-Centromere B Ab <0.2 AI (0.0-0.9); Anti-Chromatin <0.2 AI (0.0-0.9); Anti-Jo <0.2 AI (0.0-0.9); Anti-Scleroderma-70 AB <0.2 AI (0.0-0.9); RNP Ab <0.2 AI (0.0-0.9); SJOGREN'S Anti-SS-A test < 0.2 AI (0.0-0.9); SJOGREN'S Anti-SS-B test < 0.2 AI (0.0-0.9); Smith Ab <0.2 AI (0.0-0.9)
[2021-06-14 13:18] LABS: Anti-dsDNA Ab 1 IU/mL (0-9)
[2021-06-15 16:09] LABS: Albumin 3.3 g/dL (2.9-4.4); Alpha-1-Globulins 0.3 g/dL (0.0-0.4); Alpha-2-Globulins 1.1 g/dL (0.4-1.0); Gamma Globulin 1.2 g/dL (0.4-1.8); Immunoglobulin A 465 mg/dL (64-422); Immunoglobulin G 1175 mg/dL (586-1602); Immunoglobulin M 55 mg/dL (26-217); PROEL- TOTAL PROTEIN 7.3 g/dL (6.0-8.5)
[2021-06-16 20:44] LABS: Fats, Neutral Normal (.)
[2021-06-16 20:45] LABS: Fats, Total Normal (.)
[2021-06-17 17:07] LABS: Cytoplasmic Ab (C-ANCA) <1:20 titer (Neg:<1:20); Endomysial Antibody IgA Negative (Negative); Immunoglobulin A 430 mg/dL (64-422); Immunoglobulin E 3 IU/mL (6-495); Immunoglobulin G 1160 mg/dL (586-1602); Intrinsic Factor Ab 1.1 AU/mL (0.0-1.1)
[2021-06-18 08:31] LABS: Anti-Parietal Cell AB, QN 2.5 Units (0.0-20.0); Immunoglobulin M 54 mg/dL (26-217); Perinuclear Ab (P-ANCA) <1:20 titer (Neg:<1:20); t-Transglutaminase IgA <2 U/mL (0-3)
== END 2021-06-12 23:59 | disposition home or self-care (01) ==
PROVIDERS: PCP Family Medicine; Referring Provider Internal Medicine Gastroenterology; Visit Provider Internal Medicine Gastroenterology
DX: M06.9 Rheumatoid arthritis, unspecified (principal); R19.7 Diarrhea, unspecified
CPT/HCPCS: 36415; 82607; 82705; 82784; 82785; 83516; 83615; 83630; 84165; 85025; 85652; 86140; 86225; 86235; 86255; 86256; 86334; 86340; 87493; 87506

== ENCOUNTER → 2022-01-29 | Outpatient (CLI) | payer MEDICARE, OTHER, SELFPAY ==
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
== END | disposition home or self-care (01) ==
LOC: MTRAD 15:33
PROVIDERS: PCP Family Medicine; Referring Provider Family Medicine; Visit Provider Family Medicine
DX: T14.90XA Injury, unspecified, initial encounter (principal); W19.XXXA Unspecified fall, initial encounter
CPT/HCPCS: 72170

== ENCOUNTER → 2022-05-10 | Outpatient (CLI) | payer MEDICARE, OTHER, SELFPAY ==
[2022-05-10 16:38] LABS: Absolute Lymphocyte Count 0.72 X10^3/uL (0.83-4.51); Absolute Neutrophil Count 5.8 X10^3/uL (2.0-7.7); Basophil# 0.03 X10^3/uL; Basophil% 0.4 % (0-1); Eosinophil# 0.16 X10^3/uL; Eosinophils% 2.2 % (0-5); Hematocrit 41.2 % (37-47); Hemoglobin 13.1 g/dL (12.0-15.0); Lymphocyte # 0.72 X10^3/ul (0.83-4.51); Lymphocyte % 10.1 % (19-41); Mean Corp Hgb Conc 31.8 g/dL (32-36); Mean Corpuscular Hgb 29.4 pg (27.0-32.0); Mean Corpuscular Volume 92.4 fL (81-99); Mean Platelet Vol. 10.9 fl (6.2-12.0); Monocyte% 5.6 % (0-10); NRBC Flagged by Analyzer 0 % (0-5); Neutrophil # 5.81 X10^3/uL (2.7-7.7); Neutrophil % 81.4 % (47-70); Platelet Count 262 K/mm3 (150-450); RBC Distribution Width CV 15.9 % (11.6-14.6); RBC Distribution Width SD 54.8 fl (35.1-43.9); Red Blood Count 4.46 M/mm3 (4.2-5.4); White Blood Count 7.1 K/mm3 (4.4-11.0)
[2022-05-10 16:54] LABS: ALB/GLOB Ratio 0.7 RATIO (0.9-2.4); AST(SGOT) 13 U/L (15-37); Alanine Aminotransfer ALT/SGPT 18 U/L (13-56); Albumin, Serum 3.4 g/dL (3.2-5.0); Alkaline Phosphatase 40 U/L (45-117); Anion Gap 4 (5-15); BUN 30 mg/dL (7-18); BUN/Creat Ratio 22.6 RATIO (10-20); CRP 9.08 mg/L (0.0-3.0); Calcium,Total 9.7 mg/dL (8.5-10.1); Chloride 106 mmol/L (98-107); Creatinine, Serum 1.33 mg/dL (0.55-1.02); EST Glomerular Filtration Rate 42 mL/min (>60); Est Glom Filt Rate - Afr Amer 50 mL/min (>60); Globulin 4.8 g/dL (2.2-4.2); Glucose 138 mg/dL (74-106); Potassium 4.7 mmol/L (3.5-5.1); Protein, Total 8.2 g/dL (6.4-8.2); Sodium Level 137 mmol/L (136-145)
[2022-05-10 17:08] LABS: Erythrocyte Sedimentation Rate 65 mm/hr (0-30)
== END | disposition home or self-care (01) ==
PROVIDERS: PCP Family Medicine; Referring Provider Nurse Practitioner Adult Health; Visit Provider Nurse Practitioner Adult Health
DX: R19.7 Diarrhea, unspecified (principal); Z83.79 Family history of other diseases of the digestive system
CPT/HCPCS: 36415; 80053; 85025; 85652; 86140

== ENCOUNTER → 2022-05-14 | Outpatient (CLI) | payer MEDICARE, OTHER, SELFPAY ==
[2022-05-17 21:54] LABS: Calprotectin, Stool 206 ug/g (0-120)
== END | disposition home or self-care (01) ==
PROVIDERS: PCP Family Medicine; Referring Provider Nurse Practitioner Adult Health; Visit Provider Nurse Practitioner Adult Health
DX: R19.7 Diarrhea, unspecified (principal); Z83.79 Family history of other diseases of the digestive system
CPT/HCPCS: 83993

== ENCOUNTER → 2022-06-26 | Outpatient (CLI) | payer MEDICARE, OTHER, SELFPAY ==
--- NOTE | 2022-06-26 11:29 | NM_ITS ---
CLINICAL: 72-year-old female with suspected clinical gastroparesis. SEMI-SOLID PHASE 99m Tc SULFUR COLLOID GASTRIC EMPTYING STUDY COMPARISON: None available FINDINGS: The patient was administered 1.1 mCi of 99m Tc sulfur colloid mixed with oatmeal and consumed per os. Image acquisitions in the anterior-posterior projections were obtained for 60 minutes. There is prompt visualization of the stomach. There is no gastroesophageal reflux identified. First order kinetics are maintained throughout the duration of the acquisitions. The T ? raw data emptying was calculated to be 58.74 minutes, (Normal: 12-56 minutes). NM/Gastric Emptying Study IMPRESSION: 1. ABNORMAL 99m Tc sulfur colloid semi-solid phase (oatmeal) gastric emptying imaging examination. A. There is mild delayed semi-solid phase gastric emptying compared to normal controls with maintained first order kinetics throughout all components of the examination. (Casa et al, J Nucl Med Tech 38: 186, 2010). Electronically Signed: Jitendra Garcia, at 21:08 EST ,
[2022-06-26 11:52] LABS: Anion Gap 6 (5-15); BUN 28 mg/dL (7-18); BUN/Creat Ratio 27.2 RATIO (10-20); Calcium,Total 9.8 mg/dL (8.5-10.1); Chloride 107 mmol/L (98-107); Cholesterol 99 mg/dL (200); Creatinine, Serum 1.03 mg/dL (0.55-1.02); EST Glomerular Filtration Rate 56 mL/min (>60); Est Glom Filt Rate - Afr Amer 68 mL/min (>60); Glucose 84 mg/dL (74-106); High Density Lipoprotein 49 mg/dL; Potassium 3.9 mmol/L (3.5-5.1); Sodium Level 141 mmol/L (136-145); Triglycerides 135 mg/dL; Very Low Density Lipoprotein 27 mg/dL (5-40)
[2022-06-27 18:43] LABS: Microalbumin,Random Urine 15.7 mg/L (NO RANGE EST.); Microalbumin:Creatinine Ratio 18.8 mg/g CRE (<30 mg/g CRE)
== END | disposition home or self-care (01) ==
LOC: NM 11:27
PROVIDERS: PCP Family Medicine; Visit Provider Nurse Practitioner Adult Health
DX: E11.9 Type 2 diabetes mellitus without complications (principal); K31.84 Gastroparesis
CPT/HCPCS: 36415; 78264; 80048; 80061; 82043; 82570; A9541

== ENCOUNTER 2022-12-11 10:38 | Outpatient (CLI) | payer MEDICARE, OTHER, SELFPAY ==
[2022-12-11 12:02] LABS: Anion Gap 5 (5-15); BUN 25 mg/dL (7-18); BUN/Creat Ratio 24.5 RATIO (10-20); Calcium,Total 9.3 mg/dL (8.5-10.1); Chloride 108 mmol/L (98-107); Cholesterol 150 mg/dL (200); Creatinine, Serum 1.02 mg/dL (0.55-1.02); EST Glomerular Filtration Rate 57 mL/min (>60); Est Glom Filt Rate - Afr Amer 68 mL/min (>60); Glucose 110 mg/dL (74-106); High Density Lipoprotein 60 mg/dL; Potassium 3.7 mmol/L (3.5-5.1); Sodium Level 141 mmol/L (136-145); Triglycerides 187 mg/dL; Very Low Density Lipoprotein 37 mg/dL (5-40)
[2022-12-14 15:08] LABS: Gastrin, Serum < 10 pg/mL (0-115); Serotonin, Serum < 5 ng/mL (8-217)
== END 2022-12-11 23:59 | disposition home or self-care (01) ==
PROVIDERS: PCP Family Medicine; Referring Provider Internal Medicine Gastroenterology; Visit Provider Internal Medicine Gastroenterology
DX: E11.40 Type 2 diabetes mellitus with diabetic neuropathy, unspecified (principal); K58.9 Irritable bowel syndrome, unspecified; R19.7 Diarrhea, unspecified; Z83.79 Family history of other diseases of the digestive system
CPT/HCPCS: 36415; 80048; 80061; 82941; 84260

== ENCOUNTER → 2022-12-14 | Outpatient (CLI) | payer MEDICARE, OTHER, SELFPAY ==
[2022-12-18 20:07] LABS: 5-HIAA, 24UR 3.6 mg/24 hr (0.0-14.9); 5-HIAA, UR 4.2 mg/L (Undefined)
== END | disposition home or self-care (01) ==
LOC: PAVLAB 11:44
PROVIDERS: PCP Family Medicine; Referring Provider Internal Medicine Gastroenterology; Visit Provider Internal Medicine Gastroenterology
DX: R19.7 Diarrhea, unspecified (principal); K58.9 Irritable bowel syndrome, unspecified; Z83.79 Family history of other diseases of the digestive system
CPT/HCPCS: 81050; 83497

== ENCOUNTER → 2022-12-18 | Outpatient (CLI) | payer MEDICARE, OTHER, SELFPAY ==
[2022-12-25 15:08] LABS: Dopamine, 24Ur 170 ug/24 hr (0-510); Dopamine, UR 151 ug/L (Undefined); Epinephrine, 24Ur 2 ug/24 hr (0-20); Epinephrine, Ur 2 ug/L (Undefined); Norepinephrine, 24Ur 68 ug/24 hr (0-135); Norepinephrine, Ur 60 ug/L (Undefined); VMA, 24UR 2.9 mg/24 hr (0.0-7.5); VMA, UR 2.6 mg/L (Undefined)
== END | disposition home or self-care (01) ==
PROVIDERS: PCP Family Medicine; Referring Provider Internal Medicine Gastroenterology; Visit Provider Internal Medicine Gastroenterology
DX: R19.7 Diarrhea, unspecified (principal); K58.9 Irritable bowel syndrome, unspecified; Z83.79 Family history of other diseases of the digestive system
CPT/HCPCS: 81050; 82384; 84585

== ENCOUNTER 2023-06-25 13:47 | Outpatient (RCR) | payer MEDICARE, OTHER, SELFPAY | END 2023-07-04 23:59 | LOC: NS 13:47 | PROVIDERS: PCP Family Medicine; Referring Provider Internal Medicine Gastroenterology; Visit Provider Internal Medicine Gastroenterology | DX: Z71.3 Dietary counseling and surveillance (principal); E11.9 Type 2 diabetes mellitus without complications; R19.7 Diarrhea, unspecified; K58.9 Irritable bowel syndrome, unspecified | CPT/HCPCS: 97802 ==

== ENCOUNTER 2023-07-30 14:10 | Outpatient (RCR) | payer MEDICARE, OTHER, SELFPAY | END 2023-08-04 23:59 | LOC: NS 14:10 | PROVIDERS: PCP Family Medicine; Referring Provider Internal Medicine Gastroenterology; Visit Provider Internal Medicine Gastroenterology | DX: Z71.3 Dietary counseling and surveillance (principal); E11.9 Type 2 diabetes mellitus without complications; R19.7 Diarrhea, unspecified; K58.9 Irritable bowel syndrome, unspecified | CPT/HCPCS: 97803 ==

== ENCOUNTER 2023-09-03 14:03 | Outpatient (RCR) | payer MEDICARE, OTHER, SELFPAY | END 2023-09-03 23:59 | LOC: NS 14:03 | PROVIDERS: PCP Family Medicine; Referring Provider Internal Medicine Gastroenterology; Visit Provider Internal Medicine Gastroenterology | DX: Z71.3 Dietary counseling and surveillance (principal); E11.9 Type 2 diabetes mellitus without complications; R19.7 Diarrhea, unspecified; K58.9 Irritable bowel syndrome, unspecified | CPT/HCPCS: 97803 ==

== ENCOUNTER → 2023-10-25 | Outpatient (CLI) | payer MEDICARE, OTHER, SELFPAY ==
--- NOTE | 2023-10-25 12:56 | ECHOD_ITS ---
Reason For Study: Arrhythmia Procedure This was a 2D Doppler, Color Flow transthoracic echocardiogram. Exam performed in department. Left Ventricle Normal LV size. Left ventricular systolic function is normal. The left ventricular ejection fraction is 55 %. Stage 1 diastolic dysfunction. No regional wall motion abnormalities noted. Right Ventricle Normal RV size. Normal systolic function. Atria Normal left atrium. Normal right atrium. Mitral Valve Normal mitral valve. Tricuspid Valve Normal tricuspid valve. Aortic Valve Trisinus/trileaflet aortic valve. Mild focal aortic valve calcification. Pulmonic Valve Normal pulmonic valve. Great Vessels Normal aortic root. The pulmonary artery is normal size. Inferior vena cava collapse with sniff. Pericardium/Pleural No pericardial effusion. MMode/2D Measurements & Calculations LVIDd: 4.2 cm IVSd: 0.96 cm Ao root diam: 3.5 cm LVIDs: 3.1 cm LVPWd: 1.00 cm LA dimension: 4.5 cm RVDd: 3.6 cm FS: 26.8 % LAV(MOD-bp): 57.3 ml LVAd ap4: 23.7 cm2 SV(MOD-sp4): 32.1 ml LAV(MOD-bp) Indexed: 26.2 ml/m2 LVLd ap4: 8.2 cm LAV(MOD-sp2): 56.0 ml EDV(MOD-sp4): 56.7 ml LAV(MOD-sp4): 50.9 ml EDV(sp4-el): 58.3 ml LVAs ap4: 14.4 cm2 LVLs ap4: 6.9 cm ESV(MOD-sp4): 24.6 ml ESV(sp4-el): 25.4 ml EF(MOD-sp4): 56.6 % EF(sp4-el): 56.4 % SV(sp4-el): 32.9 ml LA A4 area: 18.4 cm2 RA A4 area: 13.8 cm2 TAPSE: 1.5 cm Time Measurements MV dec time: 0.29 sec Doppler Measurements & Calculations MV E max omi: 91.0 cm/sec Lat Peak E' Omi: 7.0 cm/sec Med Peak E' Omi: 6.3 cm/sec MV A max omi: 131.8 cm/sec E/E' lat: 13.0 E/E' med: 14.5 MV E/A: 0.69 MV V2 max: 160.7 cm/sec MV P1/2t max omi: 125.0 cm/sec Ao V2 max: 146.0 cm/sec MV max P.3 mmHg MV P1/2t: 109.8 msec Ao max P.6 mmHg MV V2 mean: 90.6 cm/sec MV dec slope: 333.3 cm/sec2 Ao V2 mean: 105.7 cm/sec MV mean P.8 mmHg Ao mean P.0 mmHg MV V2 VTI: 39.9 cm MVA(P1/2t): 2.0 cm2 Ao V2 VTI: 36.0 cm AV (velocity ratio): 0.64 LV V1 max: 104.0 cm/sec PA V2 max: 82.4 cm/sec LV V1 max P.3 mmHg PA max PG (full): 0.98 mmHg LV V1 mean P.3 mmHg PA V2 mean: 64.4 cm/sec LV V1 mean: 71.7 cm/sec PA mean PG (full): 0.74 mmHg LV V1 VTI: 22.9 cm ECHO/Echo Complete Interpretation Summary Normal LV size. Left ventricular systolic function is normal. The left ventricular ejection fraction is 55 %. Stage 1 diastolic dysfunction. Mild focal aortic valve calcification. Ordering Physician: Germán Osorio Referring Physician: Lawrence Fisher Performed By: Taurus Aceves RCS
== END | disposition home or self-care (01) ==
LOC: CVS 12:55
PROVIDERS: PCP Family Medicine; Referring Provider Internal Medicine Cardiovascular Disease; Visit Provider Internal Medicine Cardiovascular Disease
DX: I49.3 Ventricular premature depolarization (principal)
CPT/HCPCS: 93306

== ENCOUNTER → 2023-11-25 | Outpatient (CLI) | payer MEDICARE, OTHER, SELFPAY ==
[2023-11-25 10:41] LABS: Vitamin D,25 Hydroxy 40.4 ng/mL
[2023-11-25 10:47] LABS: ALB/GLOB Ratio 0.7 RATIO (0.9-2.4); AST(SGOT) 13 U/L (15-37); Alanine Aminotransfer ALT/SGPT 17 U/L (13-56); Albumin, Serum 3.2 g/dL (3.2-5.0); Alkaline Phosphatase 37 U/L (45-117); Anion Gap 9 (5-15); BUN 35 mg/dL (7-18); BUN/Creat Ratio 30.2 RATIO (10-20); Calcium,Total 9.5 mg/dL (8.5-10.1); Chloride 105 mmol/L (98-107); Cholesterol 124 mg/dL (200); Creatinine, Serum 1.16 mg/dL (0.55-1.02); EST Glomerular Filtration Rate 49 mL/min (>60); Est Glom Filt Rate - Afr Amer 59 mL/min (>60); Globulin 4.6 g/dL (2.2-4.2); Glucose 247 mg/dL (74-106); High Density Lipoprotein 51 mg/dL; Potassium 3.8 mmol/L (3.5-5.1); Protein, Total 7.8 g/dL (6.4-8.2); Sodium Level 140 mmol/L (136-145); Thyroid Stim Hormone (TSH) 1.53 uIU/mL (0.358-3.74); Triglycerides 278 mg/dL; Very Low Density Lipoprotein 56 mg/dL (5-40)
== END | disposition home or self-care (01) ==
LOC: PAVLAB 10:06
PROVIDERS: PCP Family Medicine; Referring Provider Nurse Practitioner Family; Visit Provider Nurse Practitioner Family
DX: E11.42 Type 2 diabetes mellitus with diabetic polyneuropathy (principal); Z79.4 Long term (current) use of insulin; E55.9 Vitamin D deficiency, unspecified
CPT/HCPCS: 36415; 80053; 80061; 82306; 84443

== ENCOUNTER → 2023-11-26 | Outpatient (CLI) | payer MEDICARE, OTHER, SELFPAY ==
[2023-11-26 13:57] LABS: Microalbumin,Random Urine 35.3 mg/L (NO RANGE EST.); Microalbumin:Creatinine Ratio 44.3 mg/g CRE (<30 mg/g CRE)
== END | disposition home or self-care (01) ==
LOC: LABSPEC 12:44
PROVIDERS: PCP Family Medicine; Referring Provider Nurse Practitioner Family; Visit Provider Nurse Practitioner Family
DX: E11.8 Type 2 diabetes mellitus with unspecified complications (principal); Z79.4 Long term (current) use of insulin
CPT/HCPCS: 82043; 82570

== ENCOUNTER 2023-12-24 13:50 | Outpatient (RCR) | payer MEDICARE, OTHER, SELFPAY | END 2024-01-04 23:59 | LOC: NS 13:50 | PROVIDERS: PCP Family Medicine; Referring Provider Internal Medicine Gastroenterology; Visit Provider Internal Medicine Gastroenterology | DX: Z71.3 Dietary counseling and surveillance (principal); E11.9 Type 2 diabetes mellitus without complications; R19.7 Diarrhea, unspecified; K58.9 Irritable bowel syndrome, unspecified | CPT/HCPCS: 97803 ==

== ENCOUNTER 2024-03-24 14:00 | Outpatient (RCR) | payer MEDICARE, OTHER, SELFPAY | END 2024-04-04 23:59 | LOC: NS 14:00 | PROVIDERS: PCP Family Medicine; Referring Provider Internal Medicine Gastroenterology; Visit Provider Internal Medicine Gastroenterology | DX: Z71.3 Dietary counseling and surveillance (principal); E11.9 Type 2 diabetes mellitus without complications; R19.7 Diarrhea, unspecified; K58.9 Irritable bowel syndrome, unspecified | CPT/HCPCS: 97803 ==

== ENCOUNTER 2024-06-08 14:00 | Outpatient (RCR) | payer MEDICARE, OTHER, SELFPAY ==
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
--- NOTE | 2024-05-05 15:02 | HP.PTREVAL_ITS ---
Re-Evaluation Intro: Dr. Lawrence Fisher MD, It has been my pleasure to treat JULIANNA GARVEY over the last 8 visits for weakness and increased risk for falls. Please see the progress note below for an update on the physical therapy plan of care! Subjective Subjective: Pt. reports overall doing better. Pt. reports being 40% better overall. She is still having a lot issues with pain in B knee and her back. Pt. repots mild soreness currently. Objective Objective/Function: Pt. continues to have pain in B knee and low back pain with walking. Pt. reports this limited her overall mobility and tolerance. MMT AT [facility]: MMT: LLE: knee ext 16.6#, flexion 17.6#; hip: flexion 8#, abd 4# RLE: ext: 17.8#, flexion 13.2#; hip: flexion 10#, abd 8# CURRENT MMT: LLE: knee ext 20.8#, flexion 20.9#; hip flexion 15.9#, abd 16.8# RLE: ext 25.7#, flexion 19.0#; hip: flexion 14.8#, abd 17.1# GAIT: Pt. ambulates 238feet with FWW with DELANO. Pt. tends to have walker out in front of her, but is able to correct with VCing. STAIRS: Pt. is able to complete with step to pattern with use of BHR. Pt. does tend to decent with slight lateral to L to reduce L knee flexion/loading. Overall Tariq has improved with all strength, 30sec sit to stand test, TUG, gait and stairs. I would like her to progress on walking distances and walking with SPC, but also working on progressive strengthening. Plan Plan Plan: I am recerting her for another x2 per week for 4 weeks. Progress BLE strengthening. Progress towards gym exercises. Add in walking and dynamic sta bility with attempt to wean to SPC for mobility. Balance/Gait/Functional tests Balance/Special Test Scores Functional Gait Assessment Score: 7 % Disability: 76.6700 Lower Extremity Functional Score: 27 TUG Test Time Seconds: 16.14 Tug Test: <20 sec.=mostly independent 30 Second Chair Rise Test Seconds: 9 Goals Goals Goal 1:: LTG: Pt. to be I with HEP and gym exercises. Goal Time Frame: 4-6 Weeks Goal 2:: LTG: Pt. to complete TUG with time of less than 12 seconds. Goal Time Frame: 4-6 Weeks Goal 3:: STG: Pt. to ambulate 350' with FWW DELANO allowing for increased community I. Goal Time Frame: 2-4 Weeks Goal 4:: LTG: Pt. to completed 30 sec sit to stand rep test with at least 12 reps indicating increased BLE functional strength. (9 reps today) Goal Time Frame: 4-6 Weeks Goal Progress: Progressing Goal 5:: LTG: Pt. to negotiate 1 flight of stairs with 1 HR with reciprocal pattern. Goal Time Frame: 4-6 Weeks Anticipated Interventions Anticipated Interventions Patient/Client Instruction: Educate patient on: Condition, Plan of Care, Risk Factors and Benefits of Fitness Program For the Purpose of:: To improve health and function, To foster healthy habits, To improve decision making, To facilitate caregiver knowledge, To improve self management, To prevent re-injury and To improve ability to perform tasks related to life management Therapeutic Exercise to Include: Strength training, Power training, Endurance training, Balance training, Coordination, Body mechanics, Postural training, Passive ROM and Active ROM For the Purpose of:: To increase ROM, To improve nutrient delivery to tissue, To increase oxygenation perfusion, To improve muscle performance and motor function, To improve ability to perform ADL's, To increase tolerance to activity/condition/position, To improve gait and locomotor functions, To improve health of tissue, To decrease soft tissue restriction and To improve endurance Re-Evaluation Ending Re-evaluation ending: Please do not hesitate to contact me at [phone] by phone or if you have questions or concerns regarding this new plan of care! Sincerely, José Manuel Dover DPT
--- NOTE | 2024-06-08 15:13 | HP.PTDCSUM_ITS ---
Discharge Summary D/C summary: It has been my pleasure to treat JULIANNA GARVEY referred by Dr. Lawrence Fisher MD, with the diagnosis of weakness and increased risk for falls for a total of 16 visit(s). Discharge Date: Please see the following information for a summary of their discharge status. Subjective Subjective: Pt. reports overall doing much better than she wa previously. Pt. is having some R knee pain is planning on seeing physican about this. Pt. reports being ready to do PT on her own or at local gym with personal support worker. Pain Whole body: Pain Intensity (Out of 10): 0 LB: Pain Intensity (Out of 10): 0 R knee: Pain Intensity (Out of 10): 1 Overall Improvement % Improvement: 60 Objective Objective/Function: MMT: LLE, knee: ext 24.3#, flexion 26.8# RLE: knee ext 29.8#, flexon 28.8# gait: 351feet with FWW, 200 feet with SPC with SBA TU.8sec with no AD, 17.9 sec with FWW 30sec sit to stand: 12 Pt. is overall doing much better. At this point in time I would have her start working out at local gym with personal support worker to increase consistency and routine. I would like her to progress gait, stability and BLE strengthening. I talked about a walking routine as well. Goals Goal 1:: LTG: Pt. to be I with HEP and gym exercises. Goal Progress: Goal Met Goal 2:: LTG: Pt. to complete TUG with time of less than 12 seconds. Goal Progress: Progressing Goal 3:: STG: Pt. to ambulate 350' with FWW DELANO allowing for increased community I. Goal Progress: Goal Met Goal 4:: LTG: Pt. to completed 30 sec sit to stand rep test with at least 12 reps indicating increased BLE functional strength. (9 reps today) Goal Progress: Goal Met Goal 5:: LTG: Pt. to negotiate 1 flight of stairs with 1 HR with reciprocal pattern. Goal Progress: Goal Met Plan Plan: Pt. to be DC from PT at this point in time. She is doing to start working with a personal support worker at local gym with focus on progressive strengthening and walking program. D/C Information d/c sentence: If there are questions or concerns regarding this patient's physical therapy, please feel free to call me at [phone]. Thank you for the referral of this patient. Sincerely, José Manuel Dover, DPT Balance/Gait/Functional tests Balance/Special Test Scores Functional Gait Assessment Score: 7 % Disability: 76.6700 Lower Extremity Functional Score: 40 TUG Test Time Seconds: 11.8 Tug Test: <20 sec.=mostly independent 30 Second Chair Rise Test Seconds: 12 Improvement % Improvement: 60
== END 2024-06-08 19:00 | disposition home or self-care (01) ==
LOC: PT 14:00
PROVIDERS: PCP Family Medicine; Referring Provider Family Medicine; Visit Provider Family Medicine
DX: R53.1 Weakness (principal); Z91.81 History of falling
CPT/HCPCS: 97110; 97161; 97530

== ENCOUNTER → 2024-07-09 | Outpatient (CLI) | payer MEDICARE, OTHER, SELFPAY ==
[2024-07-09 17:51] LABS: Erythrocyte Sedimentation Rate 36 mm/hr (0-30)
[2024-07-09 19:43] LABS: CRP 6.63 mg/L (0.0-3.0); Rheumatoid Factor < 10.0 IU/mL (<15)
[2024-07-13 17:08] LABS: ANTINUCLEAR ANTIBODIES DIRECT Negative (Negative)
== END | disposition home or self-care (01) ==
LOC: MFPLAB 13:58
PROVIDERS: PCP Family Medicine; Referring Provider Family Medicine; Visit Provider Family Medicine
DX: M79.89 Other specified soft tissue disorders (principal)
CPT/HCPCS: 36415; 85652; 86038; 86140; 86431

== ENCOUNTER → 2024-08-19 | Outpatient (CLI) | payer MEDICARE, OTHER, SELFPAY ==
--- NOTE | 2024-08-19 15:04 | RAD_ITS ---
PROCEDURE: HAND MIN 3 VIEWS 08/19/2024 REASON FOR EXAM: INFLAMMATORY POLYARTHROPATHY TECHNIQUE: 3 view(s) of the right hand COMPARISON: None FINDINGS: Bones: Unremarkable Joints: There is evidence of osteoarthritis involving the 2nd and 3rd metacarpal phalangeal joints as well as the distal and proximal interphalangeal joints. Degenerative osteoarthritis of the 1st carpometacarpal joint. Old avulsion fracture of the ulnar styloid. Prior ORIF of the distal radius. Soft tissues: Soft tissue swelling. Other: RAD/Hand Min 3 Views IMPRESSION: DEGENERATIVE OSTEOARTHROSIS. NO ACUTE FINDINGS. Soft tissue swelling. Reading Location: [place] [id number]
--- NOTE | 2024-08-19 15:04 | RAD_ITS ---
PROCEDURE: HAND MIN 3 VIEWS 08/19/2024 REASON FOR EXAM: INFLAMMATORY POLYARTHROPATHY TECHNIQUE: 3 view(s) of the left hand COMPARISON: No prior studies. FINDINGS: Bones: Unremarkable Joints: Moderate degree of joint space narrowing of the middle and distal interphalangeal joints as well as the metacarpal phalangeal joints in keeping with osteoarthritis. There is also evidence of osteoarthritis at the 1st carpometacarpal joint. Evidence of prior ORIF of the distal radial fracture. Soft tissues: Soft tissue swelling. Other: RAD/Hand Min 3 Views IMPRESSION: DEGENERATIVE OSTEOARTHROSIS. NO ACUTE FINDINGS. Reading Location: [facility]
[2024-08-19 18:17] LABS: Erythrocyte Sedimentation Rate 31 mm/hr (0-30)
[2024-08-19 18:33] LABS: Absolute Lymphocyte Count 1.37 X10^3/uL (0.83-4.51); Absolute Neutrophil Count 8.5 X10^3/uL (2.0-7.7); Basophil# 0.05 X10^3/uL; Basophil% 0.5 % (0-1); Eosinophil# 0.23 X10^3/uL; Eosinophils% 2.1 % (0-5); Hematocrit 42.6 % (37-47); Hemoglobin 13.7 g/dL (12.0-15.0); Lymphocyte # 1.37 X10^3/ul (0.83-4.51); Lymphocyte % 12.6 % (19-41); Mean Corp Hgb Conc 32.2 g/dL (32-36); Mean Corpuscular Hgb 29.7 pg (27.0-32.0); Mean Corpuscular Volume 92.2 fL (81-99); Mean Platelet Vol. 11.2 fl (6.2-12.0); Monocyte# 0.72 X10^3/uL; Monocyte% 6.6 % (0-10); NRBC Flagged by Analyzer 0 % (0-5); Neutrophil # 8.47 X10^3/uL (2.7-7.7); Neutrophil % 77.6 % (47-70); Platelet Count 243 K/mm3 (150-450); RBC Distribution Width CV 15.1 % (11.6-14.6); RBC Distribution Width SD 51.2 fl (35.1-43.9); Red Blood Count 4.62 M/mm3 (4.2-5.4); White Blood Count 10.9 K/mm3 (4.4-11.0)
[2024-08-19 18:47] LABS: Hepatitis B Surface Antibody Nonreactive; Hepatitis B Surface Antigen Nonreactive (Nonreactive); Hepatitis C Antibody Nonreactive (Nonreactive)
[2024-08-19 18:56] LABS: AST(SGOT) 18 U/L (<=31); Alanine Aminotransfer ALT/SGPT 11 U/L (<=34); Albumin, Serum 3.9 g/dL (3.4-4.8); Alkaline Phosphatase 40 U/L (35-104); Anion Gap 15 (5-15); BUN 42 mg/dL (4-19); BUN/Creat Ratio 37.5 RATIO (10-20); CRP 5.99 mg/L (0.0-3.0); Calcium,Total 9.8 mg/dL (7.6-11.0); Carbon Dioxide 19.7 mmol/L (21.0-32.0); Chloride 106 mmol/L (98-108); Creatinine, Serum 1.12 mg/dL (0.70-1.20); EST Glomerular Filtration Rate 52 (>60); Globulin 3.8 g/dL (2.2-4.2); Glucose 126 mg/dL (70-99); Potassium 4.6 mmol/L (3.3-5.1); Protein, Total 7.7 g/dL (5.9-8.4); Rheumatoid Factor 10.5 IU/mL (<15); Sodium Level 141 mmol/L (133-145); Total Bilirubin 0.31 mg/dL (0.00-1.30)
[2024-08-21 14:08] LABS: CCP IgG Antibodies 9 units (0-19); QNTFERON TB Mitogen Value > 10.00 IU/mL (.); QNTFERON TB Nil Value 0.01 IU/mL (.); QNTFERON TB1+ Ag Value 0.02 IU/mL (.); QNTFERON TB2+ Ag Value 0.03 IU/mL (.); QNTIFERON TB Positive Criteria Negative (Negative)
== END | disposition home or self-care (01) ==
LOC: MTLAB 15:02
PROVIDERS: PCP Family Medicine; Referring Provider Internal Medicine Rheumatology; Visit Provider Internal Medicine Rheumatology
DX: M06.4 Inflammatory polyarthropathy (principal); Z79.899 Other long term (current) drug therapy
CPT/HCPCS: 36415; 73130; 80053; 85025; 85652; 86140; 86200; 86431; 86480; 86706; 86803; 87340

== ENCOUNTER → 2024-09-21 | Outpatient (CLI) | payer MEDICARE, OTHER, SELFPAY ==
[2024-09-21 17:43] LABS: Absolute Lymphocyte Count 1.36 X10^3/uL (0.83-4.51); Absolute Neutrophil Count 7.1 X10^3/uL (2.0-7.7); Basophil# 0.03 X10^3/uL; Basophil% 0.3 % (0-1); Eosinophil# 0.21 X10^3/uL; Eosinophils% 2.2 % (0-5); Hematocrit 41.3 % (37-47); Lymphocyte # 1.36 X10^3/ul (0.83-4.51); Lymphocyte % 14.4 % (19-41); Mean Corp Hgb Conc 31.5 g/dL (32-36); Mean Corpuscular Hgb 29.3 pg (27.0-32.0); Mean Corpuscular Volume 93.2 fL (81-99); Mean Platelet Vol. 10.3 fl (6.2-12.0); Monocyte# 0.71 X10^3/uL; Monocyte% 7.5 % (0-10); NRBC Flagged by Analyzer 0 % (0-5); Neutrophil # 7.12 X10^3/uL (2.7-7.7); Neutrophil % 75.3 % (47-70); Platelet Count 274 K/mm3 (150-450); RBC Distribution Width CV 15.3 % (11.6-14.6); RBC Distribution Width SD 52.1 fl (35.1-43.9); Red Blood Count 4.43 M/mm3 (4.2-5.4); White Blood Count 9.5 K/mm3 (4.4-11.0)
[2024-09-21 18:08] LABS: AST(SGOT) 17 U/L (<=31); Alanine Aminotransfer ALT/SGPT 11 U/L (<=34); Albumin, Serum 3.9 g/dL (3.4-4.8); Alkaline Phosphatase 42 U/L (35-104); Anion Gap 15 (5-15); BUN 46 mg/dL (4-19); BUN/Creat Ratio 42.9 RATIO (10-20); Carbon Dioxide 20.3 mmol/L (21.0-32.0); Chloride 103 mmol/L (98-108); Creatinine, Serum 1.06 mg/dL (0.70-1.20); EST Glomerular Filtration Rate 55 (>60); Globulin 3.7 g/dL (2.2-4.2); Glucose 121 mg/dL (70-99); Potassium 4.4 mmol/L (3.3-5.1); Protein, Total 7.6 g/dL (5.9-8.4); Sodium Level 138 mmol/L (133-145); Total Bilirubin 0.36 mg/dL (0.00-1.30)
== END | disposition home or self-care (01) ==
LOC: MTLAB 14:50
PROVIDERS: PCP Family Medicine; Referring Provider Internal Medicine Rheumatology; Visit Provider Internal Medicine Rheumatology
DX: M06.4 Inflammatory polyarthropathy (principal); M17.0 Bilateral primary osteoarthritis of knee; Z79.899 Other long term (current) drug therapy
CPT/HCPCS: 36415; 80053; 85025

== ENCOUNTER → 2024-10-19 | Outpatient (CLI) | payer MEDICARE, OTHER, SELFPAY ==
[2024-10-19 16:06] LABS: Absolute Lymphocyte Count 1.08 X10^3/uL (0.83-4.51); Absolute Neutrophil Count 6.6 X10^3/uL (2.0-7.7); Basophil# 0.04 X10^3/uL; Basophil% 0.5 % (0-1); Eosinophil# 0.15 X10^3/uL; Eosinophils% 1.8 % (0-5); Hematocrit 41.4 % (37-47); Hemoglobin 13.1 g/dL (12.0-15.0); Lymphocyte # 1.08 X10^3/ul (0.83-4.51); Lymphocyte % 12.9 % (19-41); Mean Corp Hgb Conc 31.6 g/dL (32-36); Mean Corpuscular Hgb 29.4 pg (27.0-32.0); Mean Corpuscular Volume 92.8 fL (81-99); Mean Platelet Vol. 11.1 fl (6.2-12.0); Monocyte# 0.41 X10^3/uL; Monocyte% 4.9 % (0-10); NRBC Flagged by Analyzer 0 % (0-5); Neutrophil # 6.63 X10^3/uL (2.7-7.7); Neutrophil % 79.5 % (47-70); Platelet Count 262 K/mm3 (150-450); RBC Distribution Width CV 15.8 % (11.6-14.6); RBC Distribution Width SD 53.7 fl (35.1-43.9); Red Blood Count 4.46 M/mm3 (4.2-5.4); White Blood Count 8.3 K/mm3 (4.4-11.0)
[2024-10-20 15:17] LABS: ALB/GLOB Ratio 1.1 RATIO (0.9-2.4); AST(SGOT) 17 U/L (<=31); Alanine Aminotransfer ALT/SGPT 12 U/L (<=34); Albumin, Serum 3.8 g/dL (3.4-4.8); Alkaline Phosphatase 40 U/L (35-104); Anion Gap 14 (5-15); BUN 42 mg/dL (4-19); Calcium,Total 9.8 mg/dL (7.6-11.0); Carbon Dioxide 20.8 mmol/L (21.0-32.0); Chloride 103 mmol/L (98-108); Creatinine, Serum 1.05 mg/dL (0.70-1.20); EST Glomerular Filtration Rate 56 (>60); Globulin 3.7 g/dL (2.2-4.2); Glucose 184 mg/dL (70-99); Potassium 4.4 mmol/L (3.3-5.1); Protein, Total 7.5 g/dL (5.9-8.4); Sodium Level 138 mmol/L (133-145); Total Bilirubin 0.42 mg/dL (0.00-1.30)
== END | disposition home or self-care (01) ==
LOC: MTLAB 13:03
PROVIDERS: PCP Family Medicine; Referring Provider Internal Medicine Rheumatology; Visit Provider Internal Medicine Rheumatology
DX: M06.4 Inflammatory polyarthropathy (principal); Z79.899 Other long term (current) drug therapy
CPT/HCPCS: 36415; 80053; 85025

== ENCOUNTER → 2024-12-09 | Outpatient (CLI) | payer MEDICARE, OTHER, SELFPAY ==
[2024-12-09 17:54] LABS: Hematocrit 40.2 % (37-47); Hemoglobin 12.6 g/dL (12.0-15.0); Immature Granulocytes Count 0.050 X10^3/uL (0.0-0.0); Mean Corp Hgb Conc 31.3 g/dL (32-36); Mean Corpuscular Volume 96.6 fL (81-99); Mean Platelet Vol. 11.5 fl (6.2-12.0); NRBC Flagged by Analyzer 0 % (0-5); Platelet Count 260 K/mm3 (150-450); RBC Distribution Width CV 16.9 % (11.6-14.6); RBC Distribution Width SD 59.7 fl (35.1-43.9); Red Blood Count 4.16 M/mm3 (4.2-5.4); White Blood Count 10.7 K/mm3 (4.4-11.0)
[2024-12-09 18:27] LABS: AST(SGOT) 23 U/L (<=31); Alanine Aminotransfer ALT/SGPT 26 U/L (<=34); Albumin, Serum 3.9 g/dL (3.4-4.8); Alkaline Phosphatase 45 U/L (35-104); Anion Gap 18 (5-15); BUN 50 mg/dL (4-19); BUN/Creat Ratio 44.1 RATIO (10-20); Calcium,Total 10.0 mg/dL (7.6-11.0); Carbon Dioxide 18.4 mmol/L (21.0-32.0); Chloride 104 mmol/L (98-108); Globulin 3.9 g/dL (2.2-4.2); Glucose 161 mg/dL (70-99); Potassium 4.5 mmol/L (3.3-5.1)
== END | disposition home or self-care (01) ==
LOC: MTLAB 15:03
PROVIDERS: PCP Family Medicine; Referring Provider Internal Medicine Rheumatology; Visit Provider Internal Medicine Rheumatology
DX: M06.4 Inflammatory polyarthropathy (principal); M17.0 Bilateral primary osteoarthritis of knee; Z79.899 Other long term (current) drug therapy
CPT/HCPCS: 36415; 80053; 85025

== ENCOUNTER → 2025-01-26 | Outpatient (CLI) | payer MEDICARE, OTHER, SELFPAY ==
[2025-01-26 18:59] LABS: Hematocrit 41.7 % (37-47); Hemoglobin 13.4 g/dL (12.0-15.0); Immature Granulocytes Count 0.030 X10^3/uL (0.0-0.0); Mean Corp Hgb Conc 32.1 g/dL (32-36); Mean Corpuscular Volume 98.1 fL (81-99); Mean Platelet Vol. 11.4 fl (6.2-12.0); NRBC Flagged by Analyzer 0 % (0-5); Platelet Count 271 K/mm3 (150-450); RBC Distribution Width CV 16.7 % (11.6-14.6); RBC Distribution Width SD 59.2 fl (35.1-43.9); Red Blood Count 4.25 M/mm3 (4.2-5.4); White Blood Count 8.3 K/mm3 (4.4-11.0)
[2025-01-26 19:02] LABS: AST(SGOT) 18 U/L (<=31); Alanine Aminotransfer ALT/SGPT 13 U/L (<=34); Albumin, Serum 4.1 g/dL (3.4-4.8); Alkaline Phosphatase 42 U/L (35-104); Anion Gap 16 (5-15); BUN 44 mg/dL (4-19); BUN/Creat Ratio 42.1 RATIO (10-20); Calcium,Total 9.8 mg/dL (7.6-11.0); Carbon Dioxide 20.8 mmol/L (21.0-32.0); Chloride 104 mmol/L (98-108); Globulin 3.5 g/dL (2.2-4.2); Glucose 110 mg/dL (70-99); Potassium 3.9 mmol/L (3.3-5.1)
== END | disposition home or self-care (01) ==
LOC: MTLAB 15:48
PROVIDERS: PCP Family Medicine; Referring Provider Internal Medicine Rheumatology; Visit Provider Internal Medicine Rheumatology
DX: M06.4 Inflammatory polyarthropathy (principal); Z79.899 Other long term (current) drug therapy
CPT/HCPCS: 36415; 80053; 85025

== ENCOUNTER → 2025-02-10 | Outpatient (CLI) | payer MEDICARE, OTHER, SELFPAY ==
--- NOTE | 2025-02-10 14:51 | BI_ITS ---
EXAM: SCRN MAMM (CAD)W/KIARRA BILAT DATE: 02/10/2025 CLINICAL HISTORY: F, Age 74 y/o , ROUTINE SCREEN TECHNIQUE: Procedure Code: [id number] Modality: MG Procedure: SCRN MAMM (CAD)W/KIARRA BILAT COMPARISON: No priors available. FINDINGS: Limited evaluation due to patient's wheelchair-bound status, best images possible. TISSUE DENSITY: There are scattered areas of fibroglandular density. Bilateral Breast Mammographic Findings: No significant masses, calcifications or other abnormalities are identified. BI/SCRN MAMM (CAD)W/KIARRA BILAT IMPRESSION: There is no mammographic evidence of malignancy. OVERALL FINAL ASSESSMENT BI-RADS 1: NEGATIVE. RECOMMENDATION: Routine annual follow-up in 1 Year Additional Recommendation none A letter with findings and recommendations will be mailed to the patient. Reading Location: [id number]
== END | disposition home or self-care (01) ==
LOC: OPBI 14:50
PROVIDERS: PCP Family Medicine; Referring Provider Family Medicine; Visit Provider Family Medicine
DX: Z12.31 Encounter for screening mammogram for malignant neoplasm of breast (principal)
CPT/HCPCS: 77063; 77067

== ENCOUNTER → 2025-04-21 | Outpatient (CLI) | payer MEDICARE, OTHER, SELFPAY ==
[2025-04-21 17:24] LABS: Hematocrit 40.4 % (37-47); Hemoglobin 12.6 g/dL (12.0-15.0); Immature Granulocytes Count 0.030 X10^3/uL (0.0-0.0); Mean Corp Hgb Conc 31.2 g/dL (32-36); Mean Corpuscular Volume 100.7 fL (81-99); Mean Platelet Vol. 11.2 fl (6.2-12.0); NRBC Flagged by Analyzer 0 % (0-5); Platelet Count 222 K/mm3 (150-450); RBC Distribution Width CV 14.6 % (11.6-14.6); RBC Distribution Width SD 53.1 fl (35.1-43.9); Red Blood Count 4.01 M/mm3 (4.2-5.4); White Blood Count 7.3 K/mm3 (4.4-11.0)
[2025-04-21 18:13] LABS: AST(SGOT) 15 U/L (<=31); Alanine Aminotransfer ALT/SGPT 10 U/L (<=34); Albumin, Serum 3.9 g/dL (3.4-4.8); Alkaline Phosphatase 33 U/L (35-104); Anion Gap 15 (5-15); BUN 43 mg/dL (4-19); BUN/Creat Ratio 33.7 RATIO (10-20); Calcium,Total 9.7 mg/dL (7.6-11.0); Carbon Dioxide 22.7 mmol/L (21.0-32.0); Chloride 104 mmol/L (98-108); Globulin 3.2 g/dL (2.2-4.2); Glucose 100 mg/dL (70-99); Potassium 4.0 mmol/L (3.3-5.1)
== END | disposition home or self-care (01) ==
LOC: MTLAB 16:24
PROVIDERS: PCP Family Medicine; Referring Provider Internal Medicine Rheumatology; Visit Provider Internal Medicine Rheumatology
DX: M06.4 Inflammatory polyarthropathy (principal); M17.0 Bilateral primary osteoarthritis of knee; Z79.899 Other long term (current) drug therapy
CPT/HCPCS: 36415; 80053; 85025